=== PATIENT | female | born 1950 | race Caucasian/White ===

== ENCOUNTER 2017-02-26 08:13 | Inpatient (IN) ==
[2017-02-26] MEDS ORDERED: IOPAMIDOL 100 ML BOTTLE IV ONE (08:14)
--- NOTE | 2017-02-26 09:06 | Emergency Department Note ---
Abdominal Pain HPI - General Chief Complaint: Abdominal Pain Stated Complaint: Possible stool coming from vagina Time Seen by Provider: 02/26/17 09:03 Source: patient Mode of arrival: ambulatory Limitations: no limitations - History of Present Illness HPI Narrative: This patient feels that she has been passing some stool and gas from her vagina for quite a long time. Also feels like she has some hemorrhoids. - Related Data Home Medications Medication Instructions Recorded Confirmed Ranitidine HCl [Zantac 75] 75 mg PO DAILYP PRN 03/01/16 02/26/17 Acetaminophen [Acetaminophen Extra 500 mg PO Q6H PRN 03/03/16 02/26/17 Strength] Previous Rx's Medication Instructions Recorded Sulfamethoxazole/Trimethoprim 1 tab PO BID #14 tablet 02/24/17 [Bactrim Ds] Allergies Allergy/AdvReac Type Severity Reaction Status Date / Time ondansetron AdvReac Mild Swelling Verified 02/24/17 19:52 [From Zofran (as hydrochloride)] Abdominal Pain PMH - Past Medical History COUNTS INCLUDE 234 BEDS AT THE [facility] Narrative: Medical History (Last Updated 02/24/17 @ 20:37 by Carolyne Gomez CALCULATION REVIEWER) Vasovagal syncope (Chronic 10/05/10) Uterine prolapse (Resolved) Underweight (Chronic 12/04/11) Scoliosis (and kyphoscoliosis), idiopathic (Chronic) Migraine (Chronic) Hernia, hiatal (Chronic 09/18/11) Edema (Chronic 09/20/11) Ear pain (Chronic 10/22/10) Cerumen impaction (Resolved) Cachexia (Chronic 12/04/11) Basal cell carcinoma (Chronic) Ascites (Chronic 09/19/11) Abdominal pain (Chronic) Impacted cerumen of both ears (Resolved) Injury of Foot (Resolved) Left sided sciatica (Chronic) Lumbar spine strain (Chronic) Muscle spasm (Chronic) Low back pain (Chronic) Sciatica (Chronic) Cachexia (Chronic) Scoliosis (Chronic) Back pain of lumbosacaral region with sciatica (Chronic) Past Surgical History (Last Updated 03/11/16 @ 16:21 by Jignesh Crowell MD) H/O hysterectomy with oophorectomy (Resolved) History of cystoscopy (Resolved) Family History Father Alzheimer's disease Grandmother Colon malignancy Grandfather Heart disease Leukemia Mother Hypertension, essential Medical history: Reports: osteoporosis, other (scoliosis severe deforming, cachexia) - Social History Alcohol use: Reports: None Drug use: Reports: none Physical Exam - General Limitations: no limitations Course Vital Signs Temperature 97.7 F 02/26/17 08:13 Pulse Rate 73 02/26/17 08:13 Respiratory Rate 16 02/26/17 08:13 Blood Pressure 130/78 02/26/17 08:13 Pulse Oximetry (%) 100 02/26/17 08:13 Temperature 97.7 F 02/26/17 08:13 Pulse Rate 64 02/26/17 15:01 Respiratory Rate 16 02/26/17 08:13 Blood Pressure 131/85 02/26/17 15:01 Pulse Oximetry (%) 100 02/26/17 15:01 Abdominal Pain - MDM Narrative Medical decision making narrative: CT scan shows a large colon cancer eroding into the vagina. She will be admitted to the hospital by Dr. Ruth the surgeon. - Lab Data Lab results reviewed: Yes I reviewed the patient's lab results. Result diagrams: 02/26/17 08:59 02/26/17 08:59 Lab Results 02/26/17 02/26/17 Range/Units 08:59 08:59 WBC 4.1 L (4.5-11.0) K/mcL RBC 3.96 L (4.00-5.20) M/mcL Hgb 8.4 L (12.0-15.0) g/dL Hct 27.9 L (36.0-48.0) % MCV 70.4 L (80.0-100.0) fL MCH 21.1 L (26.0-34.0) pg MCHC 30.0 L (31.0-36.0) g/dL RDW 17.6 H (11.5-14.5) % Plt Count 360 (140-440) K/mcL MPV 7.1 L (7.4-10.4) fL Total Counted 100 Seg Neutrophils % 72 (38-78) % Band Neutrophils % 2 (0-10) % Lymphocytes % 11 L (15-49) % Monocytes % (Manual) 15 H (1-12) % Platelet Estimate Normal (NORMAL) RBC Morphology Abnorm A (NORMAL) Hypochromasia 1+ A (NONE SEEN) Anisocytosis 1+ A (NONE SEEN) Microcytosis 2+ A (NONE SEEN) Ovalocytes Few A (NONE SEEN) Acanthocytes (Spur) Few A (NONE SEEN) Sodium 139 (133-145) mmol/L Potassium 4.2 (3.3-5.1) mmol/L Chloride 103 (96-108) mmol/L Carbon Dioxide 22 (22-30) mmol/L Anion Gap 14.0 (8-16) BUN 37 H (8-23) mg/dl Creatinine 0.8 (0.6-1.1) mg/dl GFR Calculation 76 Glucose 95 (70-105) mg/dL Calcium 9.0 (8.6-10.4) mg/dl Total Bilirubin 0.2 (0.0-1.0) mg/dL AST 25 (0-37) U/l ALT 21 (0-40) U/l Alkaline Phosphatase 109 (39-117) U/L Total Protein 6.7 (5.9-8.4) gm/dL Albumin 3.9 (3.2-5.2) gm/dL Globulin 2.8 (2.2-3.7) gm/dL Albumin/Globulin Ratio 1.4 (1.0-2.3) - Radiology Data Radiology results reviewed: Yes I reviewed the patient's radiology results. Disposition Clinical Impression: Colon cancer Disposition: Xfer As Inpt ([facility]) Condition: Fair Referrals: Jignesh Crowell MD [Primary Care Provider] - Time of Disposition: 15:15
[2017-02-26 09:31] LABS: Mean Cell Volume 70.4 fL (80.0-100.0); Mean Corpuscular Hemoglobin 21.1 pg (26.0-34.0); Platelet Count 360 K/mcL (140-440); RBC 3.96 M/mcL (4.00-5.20); Red Cell Distribution Width 17.6 % (11.5-14.5)
[2017-02-26 10:08] LABS: Acanthocytes FEW (NONE SEEN); Anisocytosis 1+ (NONE SEEN); Band Neutrophils % 2 % (0-10); Hypochromasia 1+ (NONE SEEN); Lymphocytes % 11 % (15-49); Monocytes % (Manual) 15 % (1-12); Ovalocytes FEW (NONE SEEN); Platelet Estimate NORMAL (NORMAL); RBC Morphology ABNORM (NORMAL); Segmented Neutrophils % 72 % (38-78)
[2017-02-26 10:09] LABS: ALT/SGPT 21 U/l (0-40); Albumin 3.9 gm/dL (3.2-5.2); Albumin/Globulin Ratio 1.4 (1.0-2.3); Alkaline Phosphatase 109 U/L (39-117); Blood Urea Nitrogen 37 mg/dl (8-23)
--- NOTE | 2017-02-26 15:37 | Internal Med History&Physical ---
Medical - H&P: HPI Patient information: Note initiated : 02/26/17 at 3:31 pm Patient: Milady Rdz 67 y/o F admitted on for Possible stool coming from vagina. History of present illness: Ms. Rdz is a 67 year old with a long-standing history of severe weight loss and kyphoscoliosis. She reports that she developed worsening scoliosis in her 50s with recurrent compression fractures, and thinks that she started losing weight around that time. She believes her weight has been in the 80 pound range since at least 2001. She does have a family history of colon cancer, but never agreed to screening colonoscopy, because she recalls her mother saying it was painful. Patient reports that she had a bad case of sciatica last year, and became very sedentary at that time and then developed constipation followed by rectal bleeding at that time it was thought she had bleeding hemorrhoids. That then settled down. Then about 4 weeks ago, she started to have vaginal bleeding. She thought initially it was just hemorrhoids acting up. However, she is also noticed passing gas and stool from the vaginal area. She is having occasional sweats. She thought perhaps she had a urinary tract infection, so presented to our emergency room a few days ago. She was diagnosed with UTI and given an antibiotic. She returned today, because she continues to see blood and probable stool from the vaginal area. She also notes that her perineal area seems to be getting macerated. Otherwise, she denies recent fever, but has had some occasional sweats, particularly at night. She denies headaches or dizziness, new eye or ear symptoms, sore throat or cough. She denies chest pain or palpitations. She does have mild dyspnea with exertion, for the last year or so. She denies abdominal pain, nausea or vomiting. She says her stools been fairly loose lately, and she does have some urgency to stool. She denies significant dysuria. She says she may have lost a little bit of weight over the last few years, but believes she was at 88 pounds about 15 years ago. ER evaluation included a CT scan, which confirmed a mass in the rectovaginal area, which is eroding through. Dr. Ruth evaluated the patient in the emergency room, and requested admission to work on her nutritional status and correct her severe anemia, prior to considering diverting colostomy. Medical History ? UTI diagnosed several days ago. Abdominal pain (Chronic) Ascites (Chronic 09/19/11) with paracentesis done at [facility] Back pain of lumbosacaral region with sciatica (Chronic) Basal cell carcinoma (Chronic) fascial Cachexia (Chronic 12/04/11) Edema (Chronic 09/20/11) in feet and hands Hernia, hiatal (Chronic 09/18/11) See pelvic/abdomen CT at 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 Underweight (Chronic 12/04/11) Vasovagal syncope (Chronic 10/05/10) and collapse PT became a little faint and nauseous, Dr used ammonia capsule and that seemed to bring her around. Impacted cerumen of both ears (Resolved) Injury of Foot (Resolved) Uterine prolapse (Resolved) Surgical History H/O hysterectomy with oophorectomy (Resolved) 2001 Dr Jarrett JEREMY/BSO for prolapse History of cystoscopy (Resolved) 2001 for total uterine and pelvic prolapse w/stress incontinence. Also had Moschowitz culdoplasty, bach urethropexy, vaginal vault suspension, and cystoscopy. Pathology showed atrophic endometrium, chronic cervicitis, hyperkeratosis. Medications: Tylenol 500 mg every 6 hours as needed Lincoln 53 25 1-2 tabs every 4 hours as needed Methocarbamol 500 mg p.o. 3 times daily as needed Ranitidine 75 mg p.o. daily Allergies: Zofran:?. Causes swelling. She was admitted once for IV fluids, and thought perhaps the resulting swelling was from the Zofran, but it was likely from the IV fluids. Family History Father Alzheimer's disease Grandmother Colon malignancy Grandfather Heart disease Leukemia Mother Hypertension, essential Social History The patient is single, and lives alone. She does not have children. She says her closest relative is her brother who lives in [place]. She generally tries to walk at least 40 minutes a day, and generally does not need assistive devices. She does not use tobacco, alcohol, drugs. Medical - H&P: Meds Home Medications Medication Instructions Recorded Confirmed Type Ranitidine HCl [Zantac 75] 75 mg PO DAILYP PRN 03/01/16 02/26/17 History Acetaminophen [Acetaminophen Extra 500 mg PO Q6H PRN 03/03/16 02/26/17 History Strength] Sulfamethoxazole/Trimethoprim 1 tab PO BID #14 tablet 02/24/17 02/26/17 Rx [Bactrim Ds] Allergies Allergy/AdvReac Type Severity Reaction Status Date / Time No Known Drug Allergies Allergy Verified 02/26/17 19:47 Medical - H&P: Exam - Constitutional Vitals: Temp Pulse Resp BP Pulse Ox 97.7 F 64 16 131/85 100 02/26/17 08:13 02/26/17 15:01 02/26/17 08:13 02/26/17 15:01 02/26/17 15:01 On exam, she is a cachectic appearing elderly female in no acute distress. She is severely kyphotic. Head: Normocephalic, atraumatic. She appears to have temporal wasting. Ears: She has bilateral cerumen impactions. Eyes: PERRLA, EOMI, anicteric. Pharynx: Teeth are in good repair. Mucosa appears normal. Neck: Neck appears fairly supple. Neck veins are full, but filled from above and not from below. There is no obvious lymphadenopathy, thyromegaly, bruits. Cardiac exam: Shows regular rate and rhythm, without murmurs, rubs, gallops. She has severe muscle wasting, and ribs are very prominent. Lungs: Clear to auscultation, without rales, rhonchi, wheezes. Abdomen: Is soft and nontender. Bowel sounds are active. Rectovaginal exam was performed in the ER. Extremities: Show significant muscle wasting. She does have about 1+ pitting edema at the ankles and feet. No cyanosis or clubbing is noted. Neurologic exam: Is grossly nonfocal. Skin exam: Brief exam does not show any rashes or other worrisome skin lesions. Medical - H&P: Reslt - Labs CBC & Chem 7: 02/26/17 08:59 02/26/17 08:59 Labs: Short CBC 02/26/17 Range/Units 08:59 WBC 4.1 L (4.5-11.0) K/mcL Hgb 8.4 L (12.0-15.0) g/dL Hct 27.9 L (36.0-48.0) % Plt Count 360 (140-440) K/mcL BMP 02/26/17 08:59 Sodium 139 Potassium 4.2 Chloride 103 Carbon Dioxide 22 BUN 37 H Creatinine 0.8 Glucose 95 Calcium 9.0 Liver Function 02/26/17 Range/Units 08:59 Total Bilirubin 0.2 (0.0-1.0) mg/dL AST 25 (0-37) U/l ALT 21 (0-40) U/l Alkaline Phosphatase 109 (39-117) U/L Albumin 3.9 (3.2-5.2) gm/dL February 26: CT of abdomen and pelvis: Findings suspicious for rectovaginal fistula. No intra-abdominal abscess. Multiple hepatic hemangiomas. Cachexia. No other significant abnormalities. Chest x-ray shows severe left convex thoracolumbar scoliosis. No acute infiltrates. CBC differential shows abnormal RBC morphology, with hypochromasia, anisocytosis , microcytosis, ovalocytes, and acanthocytes. February 24: Urine culture grew 20-30,000 mixed skin kellie. Urine screen for chlamydia and Neisseria was negative. March 11, 2016: Hemoglobin was 11, with hematocrit 35.5. RDW elevated at 16.9. March 2016: Echocardiogram: Bileaflet mitral prolapse with mitral regurgitation moderately severe, mild left atrial enlargement. Mild pulmonary hypertension. Atrial septal aneurysm, normal variant. Medical - H&P: A/P (1) Recto-vaginal fistula Current visit: Yes Status: Acute (2) Severe anemia Current visit: Yes Status: Acute (3) Kyphoscoliosis and scoliosis Current visit: Yes Status: Chronic (4) Cachexia Current visit: No Status: Chronic - Narrative A/P Narrative: #1. GI/. Patient presents with bleeding and stool per vagina. CT findings are consistent with possible mass eroding through the bowel and vaginal lewis, creating a fistula. -The patient appears to be severely malnourished, but will need a diverting colostomy. She has been admitted to work on correcting anemia, and consider TPN to be felt per nutrition, prior to surgery. -Dr. Ruth is consulting. -IV Zosyn, to cover possible urinary tract infection, regarding fecal contamination. 2. Malnutrition. Patient is severely cachectic, and apparently has been for quite a few years. Nutrition consult. -PICC line will be placed, and TPN planned. 3. Severe anemia, microcytic. This is very worrisome for colon cancer, in the setting of her family history and her presentation. -Transfuse to hemoglobin above 10, prior to surgery. 4. CODE STATUS: The patient requests a no CODE STATUS. She does not appear to have a formal POA and writing, but says her brother in [place] is her closest relative, and should act as her POA. 5. DVT prophylaxis: I will use subcu heparin and SCDs for now. Heparin will be discontinued prior to surgery. 6. History of chronic and severe scoliosis and compression fractures. Pain meds as needed. 7. Patient has history of mitral valve prolapse. She will be on perioperative antibiotics, regarding infection risk. This visit took approximately 60 minutes, to review the patient's records, review her case with the ER MD, as well as with Dr. Ruth of surgery, interview and examine her, and write orders.
--- NOTE | 2017-02-26 16:02 | General Surgery Consult Note ---
History of Present Illness Patient information: Note initiated : 02/26/17 at 3:59 pm Service Date, if different from initiated Date: [] Patient: Milady Rdz 67 y/o F admitted on for Possible stool coming from vagina. Chief Complaint: [] Reason for consult: other (stool and gas per vagina;fecal incontinence) History of present illness: 67-year-old female who presents to the emergency room with complaint of vaginal and rectal bleeding with stool per vagina. She was seen in the emergency room on 24 February with similar complaints and was treated for urinary tract infection. She noted that she was not better and that she was more incontinent of urine and stool and it all seem to be coming from her vagina. She was having more pain and becoming more bloated. When seen in the emergency room she was noted to have a significant amount of vaginal perianal drainage with a hard mass protruding through her rectum. Digital examination revealed a large mass on the posterior wall of the vagina and infiltrating from the rectum with suspected connection on bimanual exam. She has a suspected malignant neoplasm with a rectovaginal fistula and will need to be admitted. She has extreme cachexia with last noted weight of 82 pounds. This is compounded by extreme kyphoscoliosis. Her hemoglobin in February was 11.3 and on the day of admission is 8.4. This is a dehydrated hemoglobin since her BUN is 37. The patient will be admitted and transfused. She will need to have central line for TPN and she is counseled for the possibility of diverting colostomy which will be permanent. She is also informed that she will need to have chemoradiation for her pelvic vaginal neoplasm after pathology results unknown. The patient has a family history of colon cancer but has never had a colonoscopy. Review of Systems - Constitutional anorexia, fatigue, lethargy, malaise, weakness, weight loss - EENT Nose, mouth and throat: no abnormal hearing, no dizziness, no dysphagia, no epistaxis, no headache(s) - Cardiovascular dyspnea on exertion, edema, palpatations, syncope, no chest pain with activity - Respiratory dyspnea on exertion, pain on inspirtation - Gastrointestinal abdominal pain, bloating, change in stool character, constipation, fecal incontinence, hematochezia, loose stools, nausea - Genitourinary Genitourinary: dysuria, hematuria, urinary incontinence, vaginal discharge, other (Vaginal bleeding) - Musculoskeletal abnormal gait, arthralgias, back pain, deformity, joint swelling, loss of height , muscle cramps, muscle weakness, myalgias, numbness, radiating pain into limb, stiffness, tingling - Integumentary no changing lesions, no new lesions, no pruritus, no rash - Neurological abnormal gait, burning sensations, numbness, sensory deficit, tingling - Psychiatric anxiety, depression - Endocrine fatigue, palpitations, no cold intolerance - Hematologic/Lymphatic no easy bleeding, no easy bruising, no lymphadenopathy - Allergic/Immunologic tongue swelling, throat swelling, uticaria, wheezing, lip swelling Past History Past medical history: Chronic anemia Chronic cachexia Severe lumbar disc disease with radiculopathy Severe kyphoscoliosis Past surgical history: Abdominal hysterectomy with bilateral salpingo-oophorectomy and pelvic repair 2001 Past family history: Alzheimer's disease Colon cancer Coronary artery disease Leukemia Hypertension Past social history: Single Lives alone Never smoker Never drinker Never drugs Medications and Allergies Home Medications Medication Instructions Recorded Confirmed Type Ranitidine HCl [Zantac 75] 75 mg PO DAILYP PRN 03/01/16 02/26/17 History Acetaminophen [Acetaminophen Extra 500 mg PO Q6H PRN 03/03/16 02/26/17 History Strength] Sulfamethoxazole/Trimethoprim 1 tab PO BID #14 tablet 02/24/17 02/26/17 Rx [Bactrim Ds] Allergies Allergy/AdvReac Type Severity Reaction Status Date / Time No Known Drug Allergies Allergy Verified 02/26/17 19:47 Exam Temp Pulse Resp BP Pulse Ox 97.7 F 64 16 129/80 100 02/26/17 08:13 02/26/17 15:46 02/26/17 08:13 02/26/17 15:46 02/26/17 15:46 - General physical appearance moderate distress, moderate pain, cachectic, chronically ill - Eyes PERRL, normal ocular movement - ENT normal pinna, normal nares, normal mucosa, no hearing loss, no congestion - Head Head exam IM: Present: atraumatic, normocephalic - Neck no masses, no bruits, trachea midline, no lymphadectomy, no venous distension - Cardiovascular Cardiovascular exam IM: Present: normal rate and rhythm, RRR, +S1, +S2, systolic murmur. Absent: JVD Intensity IM: 2/6 - Respiratory normal expansion, normal respiratory effort, clear to percussion, clear to auscultation, other (Severe deformity of thoracic cavity due to marked kyphoscoliosis) - Abdomen Abdomen: Present: soft, non tender, bowel sounds, distended (Markedly distended due to crowding of viscera from kyphoscoliosis no palpable mass) Hernia: Present: none - Genitourinary Present: normal external genitalia, other (Very tender hard indurated vaginal vault with multiple nodules more prominent anteriorly with communication with rectal vault through multiple areas by palpation. Mass in the vagina is contiguous with the mass in the rectum) - Rectum Rectum: Present: no tenderness, no masses, mass (Massive rectum extending into the vagina with active bleeding and marked tenderness with communication with vaginal vault) - Integumentary Present: no rash, no growths, no abnormal pigmentation - Musculoskeletal Present: other (Incidence ofIs gait and stance not tested) - Psychiatric Present: oriented to time, oriented to person, oriented to place, speech is normal, memory intact Results - Labs 02/27/17 03:47 02/27/17 03:47 Abnormal lab results 02/26/17 02/26/17 Range/Units 08:59 08:59 WBC 4.1 L (4.5-11.0) K/mcL RBC 3.96 L (4.00-5.20) M/mcL Hgb 8.4 L (12.0-15.0) g/dL Hct 27.9 L (36.0-48.0) % MCV 70.4 L (80.0-100.0) fL MCH 21.1 L (26.0-34.0) pg MCHC 30.0 L (31.0-36.0) g/dL RDW 17.6 H (11.5-14.5) % MPV 7.1 L (7.4-10.4) fL Lymphocytes % 11 L (15-49) % Monocytes % (Manual) 15 H (1-12) % RBC Morphology Abnorm A (NORMAL) Hypochromasia 1+ A (NONE SEEN) Anisocytosis 1+ A (NONE SEEN) Microcytosis 2+ A (NONE SEEN) Ovalocytes Few A (NONE SEEN) Acanthocytes (Spur) Few A (NONE SEEN) BUN 37 H (8-23) mg/dl Diabetes panel 02/26/17 Range/Units 08:59 Sodium 139 (133-145) mmol/L Potassium 4.2 (3.3-5.1) mmol/L Chloride 103 (96-108) mmol/L Carbon Dioxide 22 (22-30) mmol/L BUN 37 H (8-23) mg/dl Creatinine 0.8 (0.6-1.1) mg/dl Glucose 95 (70-105) mg/dL Calcium 9.0 (8.6-10.4) mg/dl AST 25 (0-37) U/l ALT 21 (0-40) U/l Alkaline Phosphatase 109 (39-117) U/L Total Protein 6.7 (5.9-8.4) gm/dL Albumin 3.9 (3.2-5.2) gm/dL Calcium panel 02/26/17 Range/Units 08:59 Calcium 9.0 (8.6-10.4) mg/dl Albumin 3.9 (3.2-5.2) gm/dL Pituitary panel 02/26/17 Range/Units 08:59 Sodium 139 (133-145) mmol/L Potassium 4.2 (3.3-5.1) mmol/L Chloride 103 (96-108) mmol/L Carbon Dioxide 22 (22-30) mmol/L BUN 37 H (8-23) mg/dl Creatinine 0.8 (0.6-1.1) mg/dl Glucose 95 (70-105) mg/dL Calcium 9.0 (8.6-10.4) mg/dl Adrenal panel 02/26/17 Range/Units 08:59 Sodium 139 (133-145) mmol/L Potassium 4.2 (3.3-5.1) mmol/L Chloride 103 (96-108) mmol/L Carbon Dioxide 22 (22-30) mmol/L BUN 37 H (8-23) mg/dl Creatinine 0.8 (0.6-1.1) mg/dl Glucose 95 (70-105) mg/dL Calcium 9.0 (8.6-10.4) mg/dl Total Bilirubin 0.2 (0.0-1.0) mg/dL AST 25 (0-37) U/l ALT 21 (0-40) U/l Alkaline Phosphatase 109 (39-117) U/L Total Protein 6.7 (5.9-8.4) gm/dL Albumin 3.9 (3.2-5.2) gm/dL All other labs normal. Assessment and Plan (1) Rectal malignant neoplasm After stabilization patient will need diverting colostomy Status: Acute (2) Recto-vaginal fistula After stabilization patient will need diverting colostomy Status: Acute (3) Urinary tract infection Continue antibiotic therapy and get fresh cath specimen Status: Acute (4) Severe anemia Transfuse to hemoglobin above 10 Status: Acute (5) Kyphoscoliosis and scoliosis Status: Chronic (6) Lumbar disc disease with radiculopathy Continue analgesics for comfort Status: Acute
[2017-02-26] MEDS ORDERED: PROMETHAZINE 25 MG/ML VIAL IV PRN (17:12)
[2017-02-26] MEDS ORDERED: POTASSIUM CHLORIDE 20 MEQ in DEXTROSE 5%-1/2NS 1,000 ML IV SCH (17:12)
[2017-02-26] MEDS ORDERED: ALBUTEROL SULFATE 2.5 MG/3 ML NEBULIZER NEB PRN (17:12)
[2017-02-26] MEDS ORDERED: MAGNESIUM HYDROXIDE 30 ML ORAL.SUSP PO PRN (17:12)
[2017-02-26] MEDS ORDERED: 0.9 % SODIUM CHLORIDE 250 ML IV SCH ×2 (17:12)
[2017-02-26] MEDS ORDERED: NALOXONE HCL 0.4 MG/ML VIAL IV PRN (17:12)
[2017-02-26] MEDS ORDERED: DOCUSATE SODIUM 100 MG CAPSULE PO PRN (17:12)
[2017-02-26] MEDS ORDERED: ACETAMINOPHEN 325 MG TABLET PO PRN (17:12)
[2017-02-26] MEDS ORDERED: HYDROcodone/APAP 5/325MG TABLET PO PRN (17:12)
--- NOTE | 2017-02-26 18:12 | XRay Report ---
CLINICAL INFORMATION: Severe malnutrition TECHNIQUE: AP portable semierect chest x-ray COMPARISON: Previous examination dated 03/11/2016 FINDINGS: Severe deformity with marked left thoracolumbar scoliosis. No focal pulmonary parenchymal infiltrate or mass. No evidence for congestive heart failure. No interval change. IMPRESSION: 1. Severe left convex thoracolumbar scoliosis 2. No acute infiltrate. No evidence for congestive heart failure Interpreted and Authenticated by: Augustus Jarquin 02/26/17
[2017-02-26] MEDS: PIPERACILLIN SODIUM/TAZOBACTAM 3.375 GM in DEXTROSE 5% IN WATER 50 ML IV SCH (19:56)
--- NOTE | 2017-02-26 20:25 | Cat Scan Report ---
CLINICAL INFORMATION: Vaginal feces. CACHEXIA. COMPARISON: Previous examination dated 09/19/2011 TECHNIQUE: Axial images were obtained through the abdomen and pelvis. Sagittally and coronally reformatted images. 60 mL nonionic contrast material injected intravenously. Oral contrast material was given. Scan was initially performed three hours after oral contrast ingestion. Repeat images to the pelvis were obtained two hours after the initial examination FINDINGS: Patient has a history of vaginal feces consistent with colovesical fistula. There is generalized lack of intraperitoneal, retroperitoneal, and subcutaneous fat. Contrast is compromised. In the pelvis there is somewhat amorphous soft tissue density with difficult the limitation of colon and vagina. The uterus is not identified. There are irregular gas bubbles within the vagina. There is a probable small rectovaginal fistula although this is not optimally demonstrated. If a surgical procedure is planned, repeat examination with water-soluble contrast material administered by rectum may be of benefit. There is severe abdominal deformity secondary to high-grade left thoracolumbar scoliosis. Lung bases are negative. No parenchymal infiltrate or mass. No pleural fluid. No pericardial fluid. Liver is abnormal. There are multiple low density lesions consistent with hemangiomas. These are unchanged since 2012. Liver contour is smooth without evidence for cirrhosis. Gallbladder is present. No calcified gallstones. No dilated bile ducts. Spleen is negative. Normal enhancement of splenic and portal veins. Pancreas is negative. No pancreatic mass. Negative adrenal glands. Kidneys are negative. No hydronephrosis. There is a right upper pole renal cyst. There is no bowel obstruction. Previous examination demonstrated ascites as well as abnormal appearance of the small bowel. These findings have resolved. No retroperitoneal lymphadenopathy. No pneumoperitoneum. No intra-abdominal abscess. No biliary or portal venous gas. IMPRESSION: 1. Findings suspicious for rectovaginal fistula although this is not optimally demonstrated 2. No intra-abdominal abscess. No pneumoperitoneum. 3. Severe scoliosis. 4. Multiple hepatic hemangiomas, unchanged 5. Cachexia Interpreted and Authenticated by: Augustus Jarquin 02/26/17
[2017-02-26] MEDS: DEXTROSE 5%-1/2NS W/20MEQ KCL 1,000 ML IV SCH (21:41)
[2017-02-26] MEDS: HEPARIN 5,000 UNIT/ML VIAL SQ SCH (23:01)
[2017-02-26] MEDS: FAMOTIDINE/PF 20 MG/2 ML VIAL IV SCH (23:01)
[2017-02-27] MEDS: PIPERACILLIN SODIUM/TAZOBACTAM 3.375 GM in DEXTROSE 5% IN WATER 50 ML IV SCH ×4 (01:11→17:48)
[2017-02-27 06:55] LABS: ALT/SGPT 15 U/l (0-40); Albumin/Globulin Ratio 1.1 (1.0-2.3); Alkaline Phosphatase 86 U/L (39-117); Bilirubin,Direct < 0.2 mg/dL (0.0-0.3); Blood Urea Nitrogen 24 mg/dl (8-23); Gamma Glutamyl Transpeptidase 47 U/L (5-36); Magnesium 2.4 mg/dL (1.6-2.5); Uric Acid 3.1 mg/dL (2.5-8.0)
[2017-02-27 08:16] LABS: Basophils # (Auto) 0 K/mcL (0.0-0.3); Basophils % (Auto) 0 % (0.0-2.0); Eosinophils # (Auto) 0.1 K/mcL (0.0-0.7); Eosinophils % (Auto) 3.1 % (0.0-7.0); Granulocytes % (Auto) 63.4 % (38.0-78.0); Lymphocytes # (Auto) 0.8 K/mcL (1.5-4.8); Lymphocytes % (Auto) 19.7 % (15.5-49.0); Mean Cell Volume 75.6 fL (80.0-100.0); Mean Corpuscular HGB Conc 31.9 g/dL (31.0-36.0); Mean Corpuscular Hemoglobin 24.1 pg (26.0-34.0); Monocytes # (Auto) 0.6 K/mcL (0.1-0.9); Monocytes % (Auto) 13.8 % (1.0-12.0); Platelet Count 347 K/mcL (140-440); RBC 4.62 M/mcL (4.00-5.20); Red Cell Distribution Width 20.9 % (11.5-14.5)
[2017-02-27] MEDS ORDERED: 0.9 % SODIUM CHLORIDE 10 ML SYRINGE IV PRN ×4 (09:00→16:19)
[2017-02-27] MEDS: FAMOTIDINE/PF 20 MG/2 ML VIAL IV SCH ×2 (09:43→22:55)
[2017-02-27] MEDS: HEPARIN 5,000 UNIT/ML VIAL SQ SCH ×2 (09:43→22:55)
[2017-02-27] MEDS: DEXTROSE 5%-1/2NS W/20MEQ KCL 1,000 ML IV SCH ×2 (09:44→22:55)
--- NOTE | 2017-02-27 11:15 | General Surgery Progress Note ---
Subjective Patient reports: feels better, pain is less, tolerating liquids well, voiding w/ o difficulty, blood in stool, afebrile Narrative: Note initiated : 02/27/17 at 11:13 am Service Date, if different from initiated Date: [] Patient: Milady Rdz 67 y/o F admitted on 02/26/17 for Possible stool coming from vagina. Chief Complaint: [Patient is doing well. She was transfused 2 units of packed red cells and her hemoglobin is 11.2. Briones catheter was inserted earlier today because of polyuria. I had a long discussion with her again concerning her diagnosis and the plan of treatment. We will need to get central vein access and start TPN before instituting a surgical therapy. This means that surgery will probably be Friday or Friday of next week. After hydration her albumin is down to 3. It will probably be close to 2 by the time she is fully hydrated. I discussed the placement of her colostomy and colostomy care with her and demonstrated the pouches and the wafers. She is advised that she will get teaching in the hospital and through home health after discharge. She may have to go to [facility] while she recuperates from surgery prior to starting her radiation treatment. Since the surgery will be delayed at least 3 days I will stretch her bowel prep over 3 days since most of the effluent will come through her vagina. She still has a modest amount of vaginal bleeding today.] Objective Temp Pulse Resp BP Pulse Ox 98.2 F 56 L 18 117/75 97 02/27/17 07:30 02/27/17 07:30 02/27/17 07:30 02/27/17 07:30 02/27/17 07:30 - Additional Data Intake & Output - Last 24 hours: Intake & Output 02/25/17 02/26/17 02/27/17 02/28/17 05:59 05:59 05:59 05:59 Intake Total 744 / 744 1163 / 1163 Output Total 1150 / 1150 150 / 150 Balance -406 / -406 1013 / 1013 Weight 76 lb 6.4 oz - General physical appearance moderate pain, cachectic, chronically ill - Eyes PERRL - ENT normal nares, no congestion - Neck no masses, trachea midline, no venous distension - Respiratory normal expansion, normal respiratory effort, clear to percussion, clear to auscultation - Cardiovascular Cardiovascular exam: Present: normal rate and rhythm, RRR, +S1, +S2, systolic murmur. Absent: JVD - Abdomen soft, non tender, bowel sounds, distended (Abdomen remains mildly distended with good active bowel sounds. No tenderness is noted today. No masses are noted) - Psychiatric oriented to time, oriented to person, oriented to place, speech is normal, memory intact - Labs 02/27/17 03:47 02/27/17 03:47 Diabetes panel 02/27/17 Range/Units 03:47 Sodium 141 (133-145) mmol/L Potassium 4.5 (3.3-5.1) mmol/L Chloride 103 (96-108) mmol/L Carbon Dioxide 25 (22-30) mmol/L BUN 24 H (8-23) mg/dl Creatinine 0.8 (0.6-1.1) mg/dl Glucose 97 (70-105) mg/dL Calcium 8.3 L (8.6-10.4) mg/dl AST 21 (0-37) U/l ALT 15 (0-40) U/l Alkaline Phosphatase 86 (39-117) U/L Total Protein 5.7 L (5.9-8.4) gm/dL Albumin 3.0 L (3.2-5.2) gm/dL Triglycerides 65 (<150) mg/dl Calcium panel 02/27/17 Range/Units 03:47 Calcium 8.3 L (8.6-10.4) mg/dl Phosphorus 4.1 (2.7-4.5) mg/dL Albumin 3.0 L (3.2-5.2) gm/dL Pituitary panel 02/27/17 Range/Units 03:47 Sodium 141 (133-145) mmol/L Potassium 4.5 (3.3-5.1) mmol/L Chloride 103 (96-108) mmol/L Carbon Dioxide 25 (22-30) mmol/L BUN 24 H (8-23) mg/dl Creatinine 0.8 (0.6-1.1) mg/dl Glucose 97 (70-105) mg/dL Calcium 8.3 L (8.6-10.4) mg/dl Adrenal panel 02/27/17 Range/Units 03:47 Sodium 141 (133-145) mmol/L Potassium 4.5 (3.3-5.1) mmol/L Chloride 103 (96-108) mmol/L Carbon Dioxide 25 (22-30) mmol/L BUN 24 H (8-23) mg/dl Creatinine 0.8 (0.6-1.1) mg/dl Glucose 97 (70-105) mg/dL Calcium 8.3 L (8.6-10.4) mg/dl Total Bilirubin 0.8 (0.0-1.0) mg/dL AST 21 (0-37) U/l ALT 15 (0-40) U/l Alkaline Phosphatase 86 (39-117) U/L Total Protein 5.7 L (5.9-8.4) gm/dL Albumin 3.0 L (3.2-5.2) gm/dL Assessment and Plan (1) Rectal malignant neoplasm Status: Acute Assessment and plan: Discussed need for diverting colostomy and inform patient that the colostomy will be permanent. the earliest time that this can be done will be Friday but the actual time will be based on her metabolic picture. Current Visit: Yes (2) Recto-vaginal fistula Status: Acute Current Visit: Yes (3) Urinary tract infection Status: Acute Assessment and plan: Under treatment with antibiotics Culture results pending Current Visit: No (4) Severe anemia Status: Acute Assessment and plan: Partially corrected after transfusion of 2 units packed red cells; present hemoglobin 11.2 ;will place central venous catheter today Current Visit: Yes (5) Kyphoscoliosis and scoliosis Status: Chronic Current Visit: Yes (6) Lumbar disc disease with radiculopathy Status: Acute Current Visit: Yes - Time Spent With Patient Total time spent is greater than 50% in coordination of care (as documented) at patient's floor/unit and/or counseling patient:
--- NOTE | 2017-02-27 13:11 | XRay Report ---
ORIGINAL REPORT CLINICAL INFORMATION: Anemia. Dyspnea. TECHNIQUE: AP chest x-ray COMPARISON: Previous examinations dated 02/26/2017 and 03/11/2016 FINDINGS: Severe left convex thoracolumbar scoliosis is unchanged. No focal pulmonary parenchymal infiltrate or mass. No pulmonary edema. No acute abnormality or interval change. IMPRESSION: No acute infiltrate. No interval change since 02/26/2017 ADDENDUM #1 Addendum: I was not given a history of PICC line placement. There is a radiopaque line consistent with left-sided PICC line. The tip is curled and is in position consistent with the inferior right atrium. I do not certain whether there is a guidewire present but this is suspected. Interpreted and Authenticated by: Augustus Jarquin 02/27/17
[2017-02-27] MEDS ORDERED: 0.9 % SODIUM CHLORIDE 10 ML SYRINGE IV SCH (14:00)
[2017-02-27] MEDS ORDERED: TPN PER PHARMACY IV SCH (16:13)
--- NOTE | 2017-02-27 16:17 | General Surgery Procedure Note ---
Date of procedure: Note initiated : 02/27/17 at 4:15 pm Service Date, if different from initiated Date: [] Pre-op diagnosis: inadequate venous access;malnutrition Post-op diagnosis: same Procedure: left subclavian central venous catheter placement Findings: N/A Grafts/Implants: N/A Anesthesia: local (1% LOCAL INFILTRATION) Surgeon: Brian Ruth Estimated blood loss: 0 Pathology: none sent Condition: stable Disposition: no change
[2017-02-27] MEDS ORDERED: NALOXONE HCL 0.4 MG/ML VIAL IV PRN (16:19)
[2017-02-27] MEDS ORDERED: MAGNESIUM HYDROXIDE 30 ML ORAL.SUSP PO PRN (16:19)
[2017-02-27] MEDS ORDERED: PROMETHAZINE 25 MG/ML VIAL IV PRN (16:19)
[2017-02-27] MEDS ORDERED: DOCUSATE SODIUM 100 MG CAPSULE PO PRN (16:19)
[2017-02-27] MEDS ORDERED: ALBUTEROL SULFATE 2.5 MG/3 ML NEBULIZER NEB PRN (16:19)
[2017-02-27] MEDS ORDERED: ACETAMINOPHEN 325 MG TABLET PO PRN (16:19)
[2017-02-27] MEDS ORDERED: HYDROcodone/APAP 5/325MG TABLET PO PRN (16:19)
[2017-02-27] MEDS ORDERED: [UNRECOGNIZED DRUG - REMARK] IV SCH (17:00)
[2017-02-27 18:35] LABS: ALT/SGPT 15 U/l (0-40); Albumin 3.4 gm/dL (3.2-5.2); Albumin/Globulin Ratio 1.7 (1.0-2.3); Alkaline Phosphatase 85 U/L (39-117); Bilirubin,Direct < 0.2 mg/dL (0.0-0.3); Blood Urea Nitrogen 20 mg/dl (8-23); Gamma Glutamyl Transpeptidase 46 U/L (5-36); Magnesium 2.3 mg/dL (1.6-2.5); Prealbumin 15.1 mg/dl (20-40); Uric Acid 2.9 mg/dL (2.5-8.0)
--- NOTE | 2017-02-27 19:40 | Internal Med Progress Note ---
Medical - PN: Subj Patient information: Note initiated : 02/27/17 at 7:35 pm Patient: Milady Rdz 67 y/o F admitted on 02/26/17 for Recto-Vaginal Fistula/ Severe Anemia. Interval history: February 26, 2017: History of present illness: Ms. Rdz is a 67 year old with a long-standing history of severe weight loss and kyphoscoliosis. She reports that she developed worsening scoliosis in her 50s with recurrent compression fractures, and thinks that she started losing weight around that time. She believes her weight has been in the 80 pound range since at least 2001. She does have a family history of colon cancer, but never agreed to screening colonoscopy, because she recalls her mother saying it was painful. Patient reports that she had a bad case of sciatica last year, and became very sedentary at that time and then developed constipation followed by rectal bleeding at that time it was thought she had bleeding hemorrhoids. That then settled down. Then about 4 weeks ago, she started to have vaginal bleeding. She thought initially it was just hemorrhoids acting up. However, she is also noticed passing gas and stool from the vaginal area. She is having occasional sweats. She thought perhaps she had a urinary tract infection, so presented to our emergency room a few days ago. She was diagnosed with UTI and given an antibiotic. She returned today, because she continues to see blood and probable stool from the vaginal area. She also notes that her perineal area seems to be getting macerated. Otherwise, she denies recent fever, but has had some occasional sweats, particularly at night. She denies headaches or dizziness, new eye or ear symptoms, sore throat or cough. She denies chest pain or palpitations. She does have mild dyspnea with exertion, for the last year or so. She denies abdominal pain, nausea or vomiting. She says her stools been fairly loose lately, and she does have some urgency to stool. She denies significant dysuria. She says she may have lost a little bit of weight over the last few years, but believes she was at 88 pounds about 15 years ago. ER evaluation included a CT scan, which confirmed a mass in the rectovaginal area, which is eroding through. Dr. Ruth evaluated the patient in the emergency room, and requested admission to work on her nutritional status and correct her severe anemia, prior to considering diverting colostomy. February 27: Today, the patient says she has been having some intermittent pain around her hip areas, but then passed stool and gas, and the pain got better. She otherwise is not having much in the way of discomfort. Dr. Ruth had a long conversation with her today, explaining how colostomies work and that she probably has a tumor that will need treatment with radiation and/or chemotherapy. She seems willing to go through the process of figuring out if what she has is treatable and/or curable. She is a little disappointed that she is still passing stool through the vagina. For some reason she thought the Briones catheter might relieve that. Otherwise, she denies fever chills chest pain or shortness of breath, nausea or vomiting. - Constitutional Vitals: Vital Signs Temp Pulse Resp BP Pulse Ox 98.6 F 56 L 16 107/79 99 02/27/17 15:27 02/27/17 15:00 02/27/17 15:27 02/27/17 15:27 02/27/17 15:27 Period Temp Pulse Resp BP Sys/Shah Pulse Ox Last 24 Hr 98.2 F-99.0 F 56-56 16-18 96-129/71-79 95-99 Intake and Output 02/27/17 02/27/17 02/27/17 05:59 13:59 21:59 Intake Total 694 / 694 1213 / 1213 Output Total 600 / 600 150 / 150 400 / 400 Balance 94 / 94 1063 / 1063 -400 / -400 Weight 76 lb 6.4 oz Patient Weight 02/28/17 05:59 Weight 76 lb 6.4 oz Intake & Output: Intake & Output 02/27/17 02/27/17 02/27/17 05:59 13:59 21:59 Intake Total 694 / 694 1213 / 1213 Output Total 600 / 600 150 / 150 400 / 400 Balance 94 / 94 1063 / 1063 -400 / -400 Weight 76 lb 6.4 oz Intake: IV 96 / 96 1213 / 1213 Sodium Chloride 0.9% 250 46 / 46 113 / 113 ml @ 20 mls/hr IV . [id number] [facility] Rx#:[id number] Dextrose 5%-1/2Ns W/20Meq 1000 / 1000 KCl 1,000 ml @ 100 mls/ hr IV Q10H [facility] Rx#: [id number] Zosyn 3.375 gm In 50 / 50 100 / 100 Dextrose 5% in Water 50 ml @ 100 mls/hr IV Q6H [facility] Rx#:[id number] Blood Product 598 / 598 Output: Urine Catheter Amount 400 / 400 Void Amount 150 / 150 Urine/Stool Mix 600 / 600 She is severely kyphotic, and cachectic in appearance. She is able to walk with a walker. Neck is supple without obvious lymphadenopathy or JVD. Cardiac exam shows regular rate and rhythm. Lungs are clear to auscultation. Abdomen is soft with active bowel sounds. Extremities show trace pitting edema. Medical - PN: Obj Da - Labs CBC & Chem 7: 02/27/17 03:47 02/27/17 16:45 Labs: Abnormal Lab Results 02/27/17 02/27/17 02/27/17 16:45 03:47 03:47 WBC 4.2 L Hgb 11.1 L Hct 34.9 L MCV 75.6 L MCH 24.1 L RDW 20.9 H [place] % (Auto) 13.8 H Lymph # (Auto) 0.8 L Carbon Dioxide 21 L BUN 24 H Glucose 107 H Calcium 8.3 L 8.3 L GGT 46 H 47 H Total Protein 5.4 L 5.7 L Albumin 3.0 L Globulin 2.0 L Prealbumin 15.1 L February 27: Central line with the tip in the inferior right atrium. No infiltrates. February 26: CT of abdomen and pelvis: Findings suspicious for rectovaginal fistula. No intra-abdominal abscess. Multiple hepatic hemangiomas. Cachexia. No other significant abnormalities. Chest x-ray shows severe left convex thoracolumbar scoliosis. No acute infiltrates. CBC: White blood cell count 4000, hemoglobin 8, hematocrit 27.9, platelets 360, 000. Differential shows abnormal RBC morphology, with hypochromasia, anisocytosis, microcytosis, ovalocytes, and acanthocytes. MRSA nasal screen is negative. February 24: Urine culture grew 20-30,000 mixed skin kellie. Urine screen for chlamydia and Neisseria was negative. March 11, 2016: Hemoglobin was 11, with hematocrit 35.5. RDW elevated at 16.9. March 2016: Echocardiogram: Bileaflet mitral prolapse with mitral regurgitation moderately severe, mild left atrial enlargement. Mild pulmonary hypertension. Atrial septal aneurysm, normal variant. Meds: Medications Acetaminophen (Tylenol) 650 mg PO Q6HP PRN PRN Reason: PAIN/FEVER > 101 Last Admin: 02/27/17 17:36 Dose: 650 mg Hydrocodone Bitart/Acetaminophen ([place] 5/325mg) 1 tab PO Q4HP PRN PRN Reason: Pain Albuterol Sulfate (Ventolin) 2.5 mg NEB Q4HRT PRN PRN Reason: Shortness Of Breath Or Wheezing Docusate Sodium (Colace) 100 mg PO BID PRN PRN Reason: Constipation Famotidine (Pepcid) 20 mg IV Q12 [facility] Heparin Sodium (Porcine) (Heparin) 5,000 unit SQ Q12 [facility] Heparin Sodium (Porcine) (Heparin Flush) 2 ml IV Q12 [facility] Potassium Chloride/Dextrose/Sod Cl (Dextrose 5%-1/2ns W/20meq Kcl) 1,000 mls @ 100 mls/hr IV Q10H [facility] Piperacillin Sod/Tazobactam (Sod 3.375 gm/ Dextrose) 50 mls @ 100 mls/hr IV Q6H [facility] Last Admin: 02/27/17 17:48 Dose: 100 mls/hr Calcium Gluconate 5 meq/Potassium Chloride 20 meq/Multivitamins/Minerals 10 ml/ Selenium 60 mcg/ Amino Acids 1,032.2526 mls @ 20 mls/hr IV Q24H [facility] Fat Emulsion Intravenous 250 (ml/ Premix) 250 mls @ 25 mls/hr IV [id number] [facility] Magnesium Hydroxide (Milk Of Magnesia) 30 ml PO DAILYP PRN PRN Reason: Constipation Morphine Sulfate (Morphine) 1 mg IV Q2HP PRN PRN Reason: Pain Naloxone HCl (Narcan) 0.1 mg IV Q2MIN PRN PRN Reason: Opiate Reversal Promethazine HCl (Phenergan) 12.5 mg IV Q4-6HP PRN PRN Reason: Nausea And Vomiting Sodium Chloride (Saline Flush) 10 ml IV UD PRN PRN Reason: FLUSH Sodium Chloride (Saline Flush) 10 ml IV UD PRN PRN Reason: Flush Sodium Chloride (Saline Flush) 10 ml IV Q8 [facility] Medical - PN: A/P - Time Spent With Patient Total time spent is greater than 50% in coordination of care (as documented) at patient's floor/unit and/or counseling patient: 15 - 24 minutes (1) Recto-vaginal fistula Status: Acute Current Visit: Yes (2) Severe anemia Status: Acute Current Visit: Yes (3) Kyphoscoliosis and scoliosis Status: Chronic Current Visit: Yes (4) Cachexia Status: Chronic Current Visit: No - Narrative A/P Narrative: #1. GI/. Patient presents with bleeding and stool per vagina. CT findings are consistent with possible mass eroding through the bowel and vaginal lewis, creating a fistula. The patient appears to be severely malnourished, but will need a diverting colostomy. She has been admitted to work on correcting anemia, and consider TPN to be felt per nutrition, prior to surgery. -Dr. Ruth is consulting. -IV Zosyn, to cover possible urinary tract infection, regarding fecal contamination. 2. Malnutrition. Patient is severely cachectic, and apparently has been for quite a few years. Nutrition consult. PICC line could not be placed today. Dr. Ruth placed a central line. Per the radiology report, this needs to be pulled back 8 cm. -Sas Developer recommends boost breeze orally daily. And also she recommends TPN , Clinimix, to start at 20 mL/h and advance to 40. Also lipids 3 times a week. 3. Severe anemia, microcytic. This is very worrisome for colon cancer, in the setting of her family history and her presentation. -Transfused to hemoglobin above 10. 4. CODE STATUS: The patient requests a no CODE STATUS. She does not appear to have a formal POA and writing, but says her brother in [place] is her closest relative, and should act as her POA. 5. DVT prophylaxis: I will use subcu heparin and SCDs for now. Heparin will be discontinued prior to surgery. 6. History of chronic and severe scoliosis and compression fractures. Pain meds as needed. 7. Patient has history of mitral valve prolapse. She will be on perioperative antibiotics, regarding infection risk. 8. Psychiatric. The patient is quite upset by her diagnosis. She may end up needing an antidepressant, at least in the short-term. It might be worthwhile to put her on something that might improve her appetite. Medical - PN: Qual - VTE Deep Vein Thrombosis/Pulmonary Embolism Present on Admission: No
[2017-02-27] MEDS: 0.9 % SODIUM CHLORIDE 10 ML SYRINGE IV SCH (22:57)
[2017-02-28] MEDS: PIPERACILLIN SODIUM/TAZOBACTAM 3.375 GM in DEXTROSE 5% IN WATER 50 ML IV SCH ×4 (00:17→17:20)
[2017-02-28] MEDS: 0.9 % SODIUM CHLORIDE 10 ML SYRINGE IV SCH ×2 (05:49→12:08)
[2017-02-28 07:12] LABS: Basophils # (Auto) 0 K/mcL (0.0-0.3); Basophils % (Auto) 0 % (0.0-2.0); Eosinophils # (Auto) 0.1 K/mcL (0.0-0.7); Eosinophils % (Auto) 1.5 % (0.0-7.0); Granulocytes % (Auto) 71.1 % (38.0-78.0); Lymphocytes # (Auto) 0.6 K/mcL (1.5-4.8); Mean Cell Volume 74.7 fL (80.0-100.0); Mean Corpuscular HGB Conc 31.2 g/dL (31.0-36.0); Mean Corpuscular Hemoglobin 23.3 pg (26.0-34.0); Monocytes # (Auto) 0.6 K/mcL (0.1-0.9); Monocytes % (Auto) 13.4 % (1.0-12.0); Platelet Count 348 K/mcL (140-440); RBC 4.57 M/mcL (4.00-5.20); Red Cell Distribution Width 21.1 % (11.5-14.5)
[2017-02-28 08:09] LABS: ALT/SGPT 14 U/l (0-40); Albumin 3.3 gm/dL (3.2-5.2); Albumin/Globulin Ratio 1.4 (1.0-2.3); Alkaline Phosphatase 77 U/L (39-117); Bilirubin,Direct < 0.2 mg/dL (0.0-0.3); Blood Urea Nitrogen 17 mg/dl (8-23); Gamma Glutamyl Transpeptidase 44 U/L (5-36); Magnesium 2.2 mg/dL (1.6-2.5); Uric Acid 2.4 mg/dL (2.5-8.0)
[2017-02-28] MEDS: HEPARIN 5,000 UNIT/ML VIAL SQ SCH ×2 (08:48→21:30)
[2017-02-28] MEDS: FAMOTIDINE/PF 20 MG/2 ML VIAL IV SCH ×2 (08:48→21:30)
[2017-02-28] MEDS: DEXTROSE 5%-1/2NS W/20MEQ KCL 1,000 ML IV SCH ×2 (08:48→10:07)
--- NOTE | 2017-02-28 09:11 | General Surgery Progress Note ---
Subjective Patient reports: feels better, still having pain, flatus, bowel movement, diarrhea, blood in stool, afebrile Narrative: Note initiated : 02/28/17 at 9:08 am Service Date, if different from initiated Date: [] Patient: Milady Rdz 67 y/o F admitted on 02/26/17 for Recto-Vaginal Fistula/ Severe Anemia. Chief Complaint: [Patient is stable. She complains of abdominal pain and gas pain. She also has some difficulty with sitting but this is due to her very prominent bony pressure due to severe cachexia. She still has bleeding per vagina and per rectum. Stool per vagina persists. She was finally started on TPN but is only receiving 20 cc/h at this time.] Objective Temp Pulse Resp BP Pulse Ox 97.2 F 57 L 14 128/82 100 02/28/17 06:55 02/28/17 06:55 02/28/17 06:55 02/28/17 06:55 02/28/17 08:00 - Additional Data Intake & Output - Last 24 hours: Intake & Output 02/26/17 02/27/17 02/28/17 03/01/17 05:59 05:59 05:59 05:59 Intake Total 744 / 744 1313 / 1313 988 / 988 Output Total 1150 / 1150 1550 / 1550 350 / 350 Balance -406 / -406 -237 / -237 638 / 638 Weight 76 lb 6.4 oz 78 lb 8 oz - General physical appearance moderate pain, cachectic, chronically ill - Eyes PERRL - ENT normal mucosa, no congestion - Neck trachea midline, no venous distension, limited ROM - Respiratory clear to auscultation - Cardiovascular Cardiovascular exam: Present: normal rate and rhythm, RRR, +S1, +S2. Absent: JVD - Abdomen soft, distended (Abdomen is mildly distended due to dilated stomach and colon with some tenderness to palpation. She has hyperactive bowel sounds) Hernia: none - Integumentary no rash, no growths, no abnormal pigmentation - Neurologic normal sensation, other (Severe kyphoscoliosis with marked deformity) - Psychiatric oriented to time, oriented to person, oriented to place, speech is normal, memory intact - Labs 02/28/17 06:05 02/28/17 06:05 Diabetes panel 02/27/17 02/28/17 Range/Units 16:45 06:05 Sodium 137 139 (133-145) mmol/L Potassium 4.7 4.5 (3.3-5.1) mmol/L Chloride 102 103 (96-108) mmol/L Carbon Dioxide 21 L 23 (22-30) mmol/L BUN 20 17 (8-23) mg/dl Creatinine 0.9 0.9 (0.6-1.1) mg/dl Glucose 107 H 120 H (70-105) mg/dL Calcium 8.3 L 8.4 L (8.6-10.4) mg/dl AST 17 16 (0-37) U/l ALT 15 14 (0-40) U/l Alkaline Phosphatase 85 77 (39-117) U/L Total Protein 5.4 L 5.7 L (5.9-8.4) gm/dL Albumin 3.4 3.3 (3.2-5.2) gm/dL Triglycerides 86 60 (<150) mg/dl Calcium panel 02/27/17 02/28/17 Range/Units 16:45 06:05 Calcium 8.3 L 8.4 L (8.6-10.4) mg/dl Phosphorus 3.8 3.3 (2.7-4.5) mg/dL Albumin 3.4 3.3 (3.2-5.2) gm/dL Pituitary panel 02/27/17 02/28/17 Range/Units 16:45 06:05 Sodium 137 139 (133-145) mmol/L Potassium 4.7 4.5 (3.3-5.1) mmol/L Chloride 102 103 (96-108) mmol/L Carbon Dioxide 21 L 23 (22-30) mmol/L BUN 20 17 (8-23) mg/dl Creatinine 0.9 0.9 (0.6-1.1) mg/dl Glucose 107 H 120 H (70-105) mg/dL Calcium 8.3 L 8.4 L (8.6-10.4) mg/dl Adrenal panel 02/27/17 02/28/17 Range/Units 16:45 06:05 Sodium 137 139 (133-145) mmol/L Potassium 4.7 4.5 (3.3-5.1) mmol/L Chloride 102 103 (96-108) mmol/L Carbon Dioxide 21 L 23 (22-30) mmol/L BUN 20 17 (8-23) mg/dl Creatinine 0.9 0.9 (0.6-1.1) mg/dl Glucose 107 H 120 H (70-105) mg/dL Calcium 8.3 L 8.4 L (8.6-10.4) mg/dl Total Bilirubin 0.5 0.4 (0.0-1.0) mg/dL AST 17 16 (0-37) U/l ALT 15 14 (0-40) U/l Alkaline Phosphatase 85 77 (39-117) U/L Total Protein 5.4 L 5.7 L (5.9-8.4) gm/dL Albumin 3.4 3.3 (3.2-5.2) gm/dL Assessment and Plan (1) Rectal malignant neoplasm Status: Acute Assessment and plan: TPN will be continued Bowel prep will be started today Tenderness is scheduled for Friday for examination under anesthesia with rectal and vaginal biopsies and end colostomy CEA is 7.5 Current Visit: Yes (2) Recto-vaginal fistula Status: Acute Current Visit: Yes (3) Urinary tract infection Status: Acute Assessment and plan: Under treatment with antibiotics Culture results pending Current Visit: No (4) Severe anemia Status: Acute Assessment and plan: Continued to slow bleeding so patient will probably need transfusion on Friday preoperatively Current Visit: Yes (5) Kyphoscoliosis and scoliosis Status: Chronic Current Visit: Yes (6) Lumbar disc disease with radiculopathy Status: Acute Current Visit: Yes - Time Spent With Patient Total time spent is greater than 50% in coordination of care (as documented) at patient's floor/unit and/or counseling patient:
--- NOTE | 2017-02-28 10:35 | Internal Med Progress Note ---
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 Interval history: February 26, 2017: History of present illness: Ms. Rdz is a 67 year old with a long-standing history of severe weight loss and kyphoscoliosis. She reports that she developed worsening scoliosis in her 50s with recurrent compression fractures, and thinks that she started losing weight around that time. She believes her weight has been in the 80 pound range since at least 2001. She does have a family history of colon cancer, but never agreed to screening colonoscopy, because she recalls her mother saying it was painful. Patient reports that she had a bad case of sciatica last year, and became very sedentary at that time and then developed constipation followed by rectal bleeding at that time it was thought she had bleeding hemorrhoids. That then settled down. Then about 4 weeks ago, she started to have vaginal bleeding. She thought initially it was just hemorrhoids acting up. However, she is also noticed passing gas and stool from the vaginal area. She is having occasional sweats. She thought perhaps she had a urinary tract infection, so presented to our emergency room a few days ago. She was diagnosed with UTI and given an antibiotic. She returned today, because she continues to see blood and probable stool from the vaginal area. She also notes that her perineal area seems to be getting macerated. Otherwise, she denies recent fever, but has had some occasional sweats, particularly at night. She denies headaches or dizziness, new eye or ear symptoms, sore throat or cough. She denies chest pain or palpitations. She does have mild dyspnea with exertion, for the last year or so. She denies abdominal pain, nausea or vomiting. She says her stools been fairly loose lately, and she does have some urgency to stool. She denies significant dysuria. She says she may have lost a little bit of weight over the last few years, but believes she was at 88 pounds about 15 years ago. ER evaluation included a CT scan, which confirmed a mass in the rectovaginal area, which is eroding through. Dr. Ruth evaluated the patient in the emergency room, and requested admission to work on her nutritional status and correct her severe anemia, prior to considering diverting colostomy. February 27: Today, the patient says she has been having some intermittent pain around her hip areas, but then passed stool and gas, and the pain got better. She otherwise is not having much in the way of discomfort. Dr. Ruth had a long conversation with her today, explaining how colostomies work and that she probably has a tumor that will need treatment with radiation and/or chemotherapy. She seems willing to go through the process of figuring out if what she has is treatable and/or curable. She is a little disappointed that she is still passing stool through the vagina. For some reason she thought the Briones catheter might relieve that. Otherwise, she denies fever chills chest pain or shortness of breath, nausea or vomiting. February 28: The patient notes that she continues to have some mild chronic back discomfort. She is also continuing to have a bloody mixed with stool discharge from her vaginal area. She is still quite distressed about the diagnosis and the upcoming surgery. She is also a little bit nervous about the bowel prep. However, otherwise she is more confident about going forward with the surgery, and understands that she needs to address her likely underlying cancer. Otherwise, she denies fever or chills, headaches or dizziness, chest pain or shortness of breath, nausea or vomiting. Briones catheter is in place. - Constitutional Vitals: Vital Signs Temp Pulse Resp BP Pulse Ox 97.2 F 57 L 14 128/82 100 02/28/17 06:55 02/28/17 06:55 02/28/17 06:55 02/28/17 06:55 02/28/17 08:00 Period Temp Pulse Resp BP Sys/Shah Pulse Ox Last 24 Hr 97.2 F-98.7 F 56-60 14-18 96-128/65-82 96-100 Intake and Output 02/27/17 02/28/17 02/28/17 21:59 05:59 13:59 Intake Total 50 / 50 50 / 50 988 / 988 Output Total 400 / 400 1000 / 1000 350 / 350 Balance -350 / -350 -950 / -950 638 / 638 Weight 78 lb 8 oz Intake & Output: Intake & Output 02/27/17 02/28/17 02/28/17 21:59 05:59 13:59 Intake Total 50 / 50 50 / 50 988 / 988 Output Total 400 / 400 1000 / 1000 350 / 350 Balance -350 / -350 -950 / -950 638 / 638 Weight 78 lb 8 oz Intake: IV 50 / 50 50 / 50 988 / 988 Dextrose 5%-1/2Ns W/20Meq 988 / 988 KCl 1,000 ml @ 100 mls/ hr IV Q10H [facility] Rx#: [id number] Zosyn 3.375 gm In 50 / 50 50 / 50 Dextrose 5% in Water 50 ml @ 100 mls/hr IV Q6H [facility]ER[facility] Rx#:[id number] Oral 0 / 0 Output: Urine Catheter Amount 400 / 400 1000 / 1000 350 / 350 Other: # Bowel Movements 1 1 # of times incontinent of 1 1 Bowels She is severely kyphotic, and cachectic in appearance. She is sitting up in bed , and is not in any acute distress. Affect is somewhat depressed. Neck is supple without obvious lymphadenopathy or JVD. Cardiac exam shows regular rate and rhythm. Lungs are clear to auscultation. Abdomen is soft with active bowel sounds. Extremities show trace pitting edema. Medical - PN: Obj Da - Labs CBC & Chem 7: 02/28/17 06:05 02/28/17 06:05 Labs: Abnormal Lab Results 02/28/17 02/28/17 02/28/17 06:05 06:05 06:05 WBC 4.4 L Hgb 10.6 L Hct 34.1 L MCV 74.7 L MCH 23.3 L RDW 21.1 H MPV 7.0 L Lymph % (Auto) 14.0 L [place] % (Auto) 13.4 H Lymph # (Auto) 0.6 L Carbon Dioxide BUN Glucose 120 H Uric Acid 2.4 L Calcium 8.4 L GGT 44 H Total Protein 5.7 L Albumin Globulin Prealbumin Carcinoembryonic Ag 9.5 H 02/27/17 02/27/17 02/27/17 16:45 03:47 03:47 WBC 4.2 L Hgb 11.1 L Hct 34.9 L MCV 75.6 L MCH 24.1 L RDW 20.9 H MPV Lymph % (Auto) [place] % (Auto) 13.8 H Lymph # (Auto) 0.8 L Carbon Dioxide 21 L BUN 24 H Glucose 107 H Uric Acid Calcium 8.3 L 8.3 L GGT 46 H 47 H Total Protein 5.4 L 5.7 L Albumin 3.0 L Globulin 2.0 L Prealbumin 15.1 L Carcinoembryonic Ag february 27: Central line with the tip in the inferior right atrium. No infiltrates. Chest x-ray: Shows a left-sided central venous catheter. Radiology initially thought the tip was coiled in the right atrium, but Dr. Ruth reviewed the film , and the placement is correct. Severe scoliosis is again demonstrated. No pulmonary infiltrates are noted. February 26: CT of abdomen and pelvis: Findings suspicious for rectovaginal fistula. No intra-abdominal abscess. Multiple hepatic hemangiomas. Cachexia. No other significant abnormalities. Chest x-ray shows severe left convex thoracolumbar scoliosis. No acute infiltrates. CBC: White blood cell count 4000, hemoglobin 8, hematocrit 27.9, platelets 360, 000. Differential shows abnormal RBC morphology, with hypochromasia, anisocytosis, microcytosis, ovalocytes, and acanthocytes. MRSA nasal screen is negative. February 24: Urine culture grew 20-30,000 mixed skin kellie. Urine screen for chlamydia and Neisseria was negative. March 11, 2016: Hemoglobin was 11, with hematocrit 35.5. RDW elevated at 16.9. March 2016: Echocardiogram: Bileaflet mitral prolapse with mitral regurgitation moderately severe, mild left atrial enlargement. Mild pulmonary hypertension. Atrial septal aneurysm, normal variant. Meds: Medications Acetaminophen (Tylenol) 650 mg PO Q6HP PRN PRN Reason: PAIN/FEVER > 101 Last Admin: 02/27/17 17:36 Dose: 650 mg Hydrocodone Bitart/Acetaminophen ([place] 5/325mg) 1 tab PO Q4HP PRN PRN Reason: Pain Albuterol Sulfate (Ventolin) 2.5 mg NEB Q4HRT PRN PRN Reason: Shortness Of Breath Or Wheezing Diagnostic Test (Pha) (Accu-Chek) 1 each FS Q6 [facility] Last Admin: 02/28/17 05:47 Dose: 1 each Docusate Sodium (Colace) 100 mg PO BID PRN PRN Reason: Constipation Famotidine (Pepcid) 20 mg IV Q12 [facility] Last Admin: 02/28/17 08:48 Dose: 20 mg Heparin Sodium (Porcine) (Heparin) 5,000 unit SQ Q12 [facility] Last Admin: 02/28/17 08:48 Dose: 5,000 unit Heparin Sodium (Porcine) (Heparin Flush) 2 ml IV Q12 [facility] Last Admin: 02/28/17 08:48 Dose: 2 ml Potassium Chloride/Dextrose/Sod Cl (Dextrose 5%-1/2ns W/20meq Kcl) 1,000 mls @ 100 mls/hr IV Q10H [facility] Last Admin: 02/28/17 08:48 Dose: 100 mls/hr Piperacillin Sod/Tazobactam (Sod 3.375 gm/ Dextrose) 50 mls @ 100 mls/hr IV Q6H [facility] Last Admin: 02/28/17 05:47 Dose: 100 mls/hr Calcium Gluconate 5 meq/Potassium Chloride 20 meq/Multivitamins/Minerals 10 ml/ Selenium 60 mcg/ Amino Acids 1,032.2526 mls @ 20 mls/hr IV Q24H [facility] Stop: 02/28/17 16:59 Last Admin: 02/27/17 23:10 Dose: 20 mls/hr Fat Emulsion Intravenous 250 (ml/ Premix) 250 mls @ 25 mls/hr IV [id number] [facility] Calcium Gluconate 5 meq/Potassium Chloride 20 meq/Multivitamins/Minerals 10 ml/ Selenium 60 mcg/ Magnesium Sulfate 8.12 meq/ Sodium Phosphate 20 mmol/ Amino Acids 1,040.9193 mls @ 40 mls/hr IV Q24H [facility] Magnesium Hydroxide (Milk Of Magnesia) 30 ml PO DAILYP PRN PRN Reason: Constipation Morphine Sulfate (Morphine) 1 mg IV Q2HP PRN PRN Reason: Pain Naloxone HCl (Narcan) 0.1 mg IV Q2MIN PRN PRN Reason: Opiate Reversal Promethazine HCl (Phenergan) 12.5 mg IV Q4-6HP PRN PRN Reason: Nausea And Vomiting Sodium Chloride (Saline Flush) 10 ml IV UD PRN PRN Reason: FLUSH Sodium Chloride (Saline Flush) 10 ml IV UD PRN PRN Reason: Flush Sodium Chloride (Saline Flush) 10 ml IV Q8 [facility] Last Admin: 02/28/17 05:49 Dose: Not Given Medical - PN: A/P - Time Spent With Patient Total time spent is greater than 50% in coordination of care (as documented) at patient's floor/unit and/or counseling patient: 25 - 35 minutes (1) Recto-vaginal fistula Status: Acute Current Visit: Yes (2) Severe anemia Status: Acute Current Visit: Yes (3) Kyphoscoliosis and scoliosis Status: Chronic Current Visit: Yes (4) Cachexia Status: Chronic Current Visit: No - Narrative A/P Narrative: #1. GI/. Patient presents with bleeding and stool per vagina. CT findings are consistent with possible mass eroding through the bowel and vaginal lewis, creating a fistula. The patient appears to be severely malnourished, but will need a diverting colostomy. She has been admitted to work on correcting anemia, and consider TPN to be felt per nutrition, prior to surgery. -Dr. Ruth is consulting. -IV Zosyn, to cover possible urinary tract infection, regarding fecal contamination. 2. Malnutrition. Patient is severely cachectic, and apparently has been for quite a few years. Nutrition consult. - Dr. Ruth placed a central line. Dr. Ruth reviewed the placement, and says it is fine.. -Electronic Transaction Implementer recommends boost breeze orally daily. And also she recommends TPN , Clinimix, to start at 20 mL/h and advance to 40. Also lipids 3 times a week. 3. Severe anemia, microcytic. This is very worrisome for colon cancer, in the setting of her family history and her presentation. However, CEA is also elevated, which may indicate a [employer]AF[employer] GLASS [employer]ST[employer]ER malignancy. Patient did have a complete hysterectomy a number of years ago. -Transfused and hemoglobin carolyne from 8.4-11.1, but is down to 10.6 today. She does have ongoing bleeding, so might require further transfusions. 4. CODE STATUS: The patient requests a no CODE STATUS. She does not appear to have a formal POA and writing, but says her brother in [place] is her closest relative, and should act as her POA. 5. DVT prophylaxis: I will use subcu heparin and SCDs for now. Heparin will be discontinued prior to surgery. 6. History of chronic and severe scoliosis and compression fractures. Pain meds as needed. He generally does not like the way narcotics make her feel , and says Tylenol extra strength generally controls her pain well enough. 7. Patient has history of mitral valve prolapse. She will be on perioperative antibiotics, regarding infection risk. 8. Psychiatric. The patient is quite upset by her diagnosis. She may end up needing an antidepressant, at least in the short-term. It might be worthwhile to put her on something that might improve her appetite. Medical - PN: Qual - VTE Deep Vein Thrombosis/Pulmonary Embolism Present on Admission: No
[2017-02-28] MEDS ORDERED: [UNRECOGNIZED DRUG - REMARK] IV SCH (17:00)
[2017-02-28] MEDS: FAT EMULSION 20% 250 ML in PREMIX 1 BAG IV SCH (17:20)
[2017-02-28] MEDS ORDERED: POTASSIUM CHLORIDE 20 MEQ/10 ML VIAL IV ONE (20:36)
[2017-02-28] MEDS: POTASSIUM CHLORIDE 10 MEQ in 0.45 % SODIUM CHLORIDE 1,000 ML IV SCH (21:29)
[2017-03-01] MEDS: PIPERACILLIN SODIUM/TAZOBACTAM 3.375 GM in DEXTROSE 5% IN WATER 50 ML IV SCH ×5 (00:15→22:11)
[2017-03-01] MEDS: 0.9 % SODIUM CHLORIDE 10 ML SYRINGE IV SCH ×3 (01:41→12:19)
[2017-03-01] MEDS: DEXTROSE 5%-1/2NS W/20MEQ KCL 1,000 ML IV SCH (01:46)
[2017-03-01 05:48] LABS: Basophils # (Auto) 0 K/mcL (0.0-0.3); Basophils % (Auto) 0.6 % (0.0-2.0); Eosinophils # (Auto) 0.2 K/mcL (0.0-0.7); Eosinophils % (Auto) 3.2 % (0.0-7.0); Granulocytes % (Auto) 70.8 % (38.0-78.0); Lymphocytes # (Auto) 0.7 K/mcL (1.5-4.8); Lymphocytes % (Auto) 15.5 % (15.5-49.0); Mean Cell Volume 73.5 fL (80.0-100.0); Mean Corpuscular HGB Conc 31.6 g/dL (31.0-36.0); Mean Corpuscular Hemoglobin 23.2 pg (26.0-34.0); Monocytes # (Auto) 0.5 K/mcL (0.1-0.9); Monocytes % (Auto) 9.9 % (1.0-12.0); Platelet Count 295 K/mcL (140-440); RBC 4.21 M/mcL (4.00-5.20); Red Cell Distribution Width 20.4 % (11.5-14.5)
[2017-03-01] MEDS ORDERED: MAGNESIUM CITRATE 300 ML ORAL.SOL PO ONE ×3 (06:00→14:45)
[2017-03-01 06:09] LABS: ALT/SGPT 11 U/l (0-40); Albumin 3.1 gm/dL (3.2-5.2); Albumin/Globulin Ratio 1.3 (1.0-2.3); Alkaline Phosphatase 65 U/L (39-117); Bilirubin,Direct < 0.2 mg/dL (0.0-0.3); Blood Urea Nitrogen 15 mg/dl (8-23); Gamma Glutamyl Transpeptidase 36 U/L (5-36); Magnesium 2.1 mg/dL (1.6-2.5); Uric Acid 1.6 mg/dL (2.5-8.0)
[2017-03-01] MEDS: HEPARIN 5,000 UNIT/ML VIAL SQ SCH (07:29)
[2017-03-01] MEDS: FAMOTIDINE/PF 20 MG/2 ML VIAL IV SCH ×2 (07:30→22:12)
[2017-03-01] MEDS: POTASSIUM CHLORIDE 10 MEQ in 0.45 % SODIUM CHLORIDE 1,000 ML IV SCH (11:40)
--- NOTE | 2017-03-01 12:59 | Internal Med Progress Note ---
Medical - PN: Subj Patient information: Note initiated : 03/01/17 at 12:58 pm Patient: Milady Rdz 67 y/o F admitted on 02/26/17 for Recto-Vaginal Fistula/ Severe Anemia. Interval history: February 26, 2017: History of present illness: Ms. Rzd is a 67 year old with a long-standing history of severe weight loss and kyphoscoliosis. She reports that she developed worsening scoliosis in her 50s with recurrent compression fractures, and thinks that she started losing weight around that time. She believes her weight has been in the 80 pound range since at least 2001. She does have a family history of colon cancer, but never agreed to screening colonoscopy, because she recalls her mother saying it was painful. Patient reports that she had a bad case of sciatica last year, and became very sedentary at that time and then developed constipation followed by rectal bleeding at that time it was thought she had bleeding hemorrhoids. That then settled down. Then about 4 weeks ago, she started to have vaginal bleeding. She thought initially it was just hemorrhoids acting up. However, she is also noticed passing gas and stool from the vaginal area. She is having occasional sweats. She thought perhaps she had a urinary tract infection, so presented to our emergency room a few days ago. She was diagnosed with UTI and given an antibiotic. She returned today, because she continues to see blood and probable stool from the vaginal area. She also notes that her perineal area seems to be getting macerated. Otherwise, she denies recent fever, but has had some occasional sweats, particularly at night. She denies headaches or dizziness, new eye or ear symptoms, sore throat or cough. She denies chest pain or palpitations. She does have mild dyspnea with exertion, for the last year or so. She denies abdominal pain, nausea or vomiting. She says her stools been fairly loose lately, and she does have some urgency to stool. She denies significant dysuria. She says she may have lost a little bit of weight over the last few years, but believes she was at 88 pounds about 15 years ago. ER evaluation included a CT scan, which confirmed a mass in the rectovaginal area, which is eroding through. Dr. Ruth evaluated the patient in the emergency room, and requested admission to work on her nutritional status and correct her severe anemia, prior to considering diverting colostomy. February 27: Today, the patient says she has been having some intermittent pain around her hip areas, but then passed stool and gas, and the pain got better. She otherwise is not having much in the way of discomfort. Dr. Ruth had a long conversation with her today, explaining how colostomies work and that she probably has a tumor that will need treatment with radiation and/or chemotherapy. She seems willing to go through the process of figuring out if what she has is treatable and/or curable. She is a little disappointed that she is still passing stool through the vagina. For some reason she thought the Briones catheter might relieve that. Otherwise, she denies fever chills chest pain or shortness of breath, nausea or vomiting. February 28: The patient notes that she continues to have some mild chronic back discomfort. She is also continuing to have a bloody mixed with stool discharge from her vaginal area. She is still quite distressed about the diagnosis and the upcoming surgery. She is also a little bit nervous about the bowel prep. However, otherwise she is more confident about going forward with the surgery, and understands that she needs to address her likely underlying cancer. Otherwise, she denies fever or chills, headaches or dizziness, chest pain or shortness of breath, nausea or vomiting. Briones catheter is in place. March 01: Today, the patient says she feels about the same. He still has some mild abdominal discomfort which she blames on bloating. She continues to have stool and blood pass through her vagina, although this does not seem to be of very large volume. She otherwise denies significant pain. She seems to be tolerating the TPN okay. Otherwise, she denies fever or chills, chest pain or palpitations, shortness of breath, nausea or vomiting. Briones catheter remains in place. - Constitutional Vitals: Vital Signs Temp Pulse Resp BP Pulse Ox 97.7 F 57 L 18 98/62 97 03/01/17 06:56 03/01/17 04:00 03/01/17 06:56 03/01/17 06:56 03/01/17 08:00 Period Temp Pulse Resp BP Sys/Shah Pulse Ox Last 24 Hr 96.2 F-98.1 F 56-75 16-18 98-147/62-82 97-100 Intake and Output 02/28/17 03/01/17 03/01/17 21:59 05:59 13:59 Intake Total 1655 / 1655 400 / 400 1141 / 1141 Output Total 550 / 550 1000 / 1000 550 / 550 Balance 1105 / 1105 -600 / -600 591 / 591 Weight 82 lb 8 oz Intake & Output: Intake & Output 02/28/17 03/01/17 03/01/17 21:59 05:59 13:59 Intake Total 1655 / 1655 400 / 400 1141 / 1141 Output Total 550 / 550 1000 / 1000 550 / 550 Balance 1105 / 1105 -600 / -600 591 / 591 Weight 82 lb 8 oz Intake: IV 1050 / 1050 300 / 300 901 / 901 Intralipid 20% 250 ml In 250 / 250 Premix 1 Bag @ 25 mls/hr IV [id number]@1600 [facility] Rx#: [id number] Zosyn 3.375 gm In 50 / 50 50 / 50 50 / 50 Dextrose 5% in Water 50 ml @ 100 mls/hr IV Q6H [facility] Rx#:[id number] Potassium Chloride 10 Meq 851 / 851 In Sodium Chloride 0.45% 1,000 ml @ 60 mls/hr IV .[id number] [facility] Rx#: [id number] Oral 240 / 240 100 / 100 240 / 240 TPN/PPN 365 / 365 Output: Urine Catheter Amount 550 / 550 1000 / 1000 550 / 550 Emesis 0 / 0 Other: Meal Dinner Breakfast Percent of Meal Consumed Refused 100% Feeding Ability Independent Independent # Bowel Movements 1 0 # of times incontinent of 3 Bowels She is severely kyphotic, and cachectic in appearance. She is sitting up in a chair, and is not in any acute distress. Affect is somewhat depressed. Neck is supple without obvious lymphadenopathy or JVD. Cardiac exam shows regular rate and rhythm. Lungs are clear to auscultation. Abdomen is soft with active bowel sounds. Briones is draining pink tinged urine. Extremities show trace pitting edema. Medical - PN: Obj Da - Labs CBC & Chem 7: 03/01/17 04:45 03/01/17 04:45 Labs: Abnormal Lab Results 03/01/17 03/01/17 02/28/17 04:45 04:45 06:05 WBC Hgb 9.8 L Hct 30.9 L MCV 73.5 L MCH 23.2 L RDW 20.4 H MPV 7.2 L Lymph % (Auto) Irion % (Auto) Lymph # (Auto) 0.7 L Carbon Dioxide BUN Glucose 115 H Uric Acid 1.6 L Calcium 8.2 L GGT Total Protein 5.4 L Albumin 3.1 L Globulin Prealbumin Carcinoembryonic Ag 9.5 H 02/28/17 02/28/17 02/27/17 06:05 06:05 16:45 WBC 4.4 L Hgb 10.6 L Hct 34.1 L MCV 74.7 L MCH 23.3 L RDW 21.1 H MPV 7.0 L Lymph % (Auto) 14.0 L Irion % (Auto) 13.4 H Lymph # (Auto) 0.6 L Carbon Dioxide 21 L BUN Glucose 120 H 107 H Uric Acid 2.4 L Calcium 8.4 L 8.3 L GGT 44 H 46 H Total Protein 5.7 L 5.4 L Albumin Globulin 2.0 L Prealbumin 15.1 L Carcinoembryonic Ag 02/27/17 02/27/17 03:47 03:47 WBC 4.2 L Hgb 11.1 L Hct 34.9 L MCV 75.6 L MCH 24.1 L RDW 20.9 H MPV Lymph % (Auto) Irion % (Auto) 13.8 H Lymph # (Auto) 0.8 L Carbon Dioxide BUN 24 H Glucose Uric Acid Calcium 8.3 L GGT 47 H Total Protein 5.7 L Albumin 3.0 L Globulin Prealbumin Carcinoembryonic Ag february 27: Central line with the tip in the inferior right atrium. No infiltrates. Chest x-ray: Shows a left-sided central venous catheter. Radiology initially thought the tip was coiled in the right atrium, but Dr. Ruth reviewed the film , and the placement is correct. Severe scoliosis is again demonstrated. No pulmonary infiltrates are noted. February 26: CT of abdomen and pelvis: Findings suspicious for rectovaginal fistula. No intra-abdominal abscess. Multiple hepatic hemangiomas. Cachexia. No other significant abnormalities. Chest x-ray shows severe left convex thoracolumbar scoliosis. No acute infiltrates. CBC: White blood cell count 4000, hemoglobin 8, hematocrit 27.9, platelets 360, 000. Differential shows abnormal RBC morphology, with hypochromasia, anisocytosis, microcytosis, ovalocytes, and acanthocytes. MRSA nasal screen is negative. February 24: Urine culture grew 20-30,000 mixed skin kellie. Urine screen for chlamydia and Neisseria was negative. March 11, 2016: Hemoglobin was 11, with hematocrit 35.5. RDW elevated at 16.9. March 2016: Echocardiogram: Bileaflet mitral prolapse with mitral regurgitation moderately severe, mild left atrial enlargement. Mild pulmonary hypertension. Atrial septal aneurysm, normal variant. Meds: Medications Acetaminophen (Tylenol) 650 mg PO Q6HP PRN PRN Reason: PAIN/FEVER > 101 Last Admin: 02/27/17 17:36 Dose: 650 mg Hydrocodone Bitart/Acetaminophen ([place] 5/325mg) 1 tab PO Q4HP PRN PRN Reason: Pain Albuterol Sulfate (Ventolin) 2.5 mg NEB Q4HRT PRN PRN Reason: Shortness Of Breath Or Wheezing Diagnostic Test (Pha) (Accu-Chek) 1 each FS Q6 [facility] Last Admin: 03/01/17 11:37 Dose: 1 each Docusate Sodium (Colace) 100 mg PO BID PRN PRN Reason: Constipation Famotidine (Pepcid) 20 mg IV Q12 [facility] Last Admin: 03/01/17 07:30 Dose: 20 mg Heparin Sodium (Porcine) (Heparin) 5,000 unit SQ Q12 [facility] Last Admin: 03/01/17 07:29 Dose: 5,000 unit Heparin Sodium (Porcine) (Heparin Flush) 2 ml IV Q12 [facility] Last Admin: 03/01/17 07:30 Dose: 2 ml Piperacillin Sod/Tazobactam (Sod 3.375 gm/ Dextrose) 50 mls @ 100 mls/hr IV Q6H [facility] Last Admin: 03/01/17 11:37 Dose: 100 mls/hr Fat Emulsion Intravenous 250 (ml/ Premix) 250 mls @ 25 mls/hr IV [id number]@1600 [facility] Last Infusion: 03/01/17 04:03 Dose: Infused Calcium Gluconate 5 meq/Potassium Chloride 20 meq/Multivitamins/Minerals 10 ml/ Selenium 60 mcg/ Magnesium Sulfate 8.12 meq/ Sodium Phosphate 20 mmol/ Amino Acids 1,040.9193 mls @ 40 mls/hr IV Q24H [facility] Stop: 03/01/17 16:59 Last Admin: 02/28/17 17:20 Dose: 40 mls/hr Potassium Chloride 10 meq/ (Sodium Chloride) 1,005 mls @ 60 mls/hr IV .[id number] [facility] Last Admin: 03/01/17 11:40 Dose: 60 mls/hr Calcium Gluconate 5 meq/Potassium Chloride 40 meq/Multivitamins/Minerals 10 ml/ Selenium 60 mcg/ Magnesium Sulfate 8.12 meq/ Sodium Phosphate 20 mmol/ Amino Acids 1,050.9193 mls @ 40 mls/hr IV Q24H [facility] Magnesium Hydroxide (Milk Of Magnesia) 30 ml PO DAILYP PRN PRN Reason: Constipation Morphine Sulfate (Morphine) 1 mg IV Q2HP PRN PRN Reason: Pain Naloxone HCl (Narcan) 0.1 mg IV Q2MIN PRN PRN Reason: Opiate Reversal Promethazine HCl (Phenergan) 12.5 mg IV Q4-6HP PRN PRN Reason: Nausea And Vomiting Sodium Chloride (Saline Flush) 10 ml IV UD PRN PRN Reason: FLUSH Sodium Chloride (Saline Flush) 10 ml IV UD PRN PRN Reason: Flush Sodium Chloride (Saline Flush) 10 ml IV Q8 [facility] Last Admin: 03/01/17 12:19 Dose: Not Given Medical - PN: A/P - Time Spent With Patient Total time spent is greater than 50% in coordination of care (as documented) at patient's floor/unit and/or counseling patient: 15 - 24 minutes (1) Recto-vaginal fistula Status: Acute Current Visit: Yes (2) Severe anemia Status: Acute Current Visit: Yes (3) Kyphoscoliosis and scoliosis Status: Chronic Current Visit: Yes (4) Cachexia Status: Chronic Current Visit: No - Narrative A/P Narrative: #1. GI/. Patient presents with bleeding and stool per vagina. CT findings are consistent with possible mass eroding through the bowel and vaginal lewis, creating a fistula. The patient appears to be severely malnourished, but will need a diverting colostomy. She has been admitted to work on correcting anemia, and consider TPN to be felt per nutrition, prior to surgery. -She will be referred to oncology after the colostomy, for consideration of radiation and/or chemotherapy. Biopsies will be done intraoperatively. -Dr. Ruth is consulting. -IV Zosyn, to cover possible urinary tract infection, regarding fecal contamination. 2. Malnutrition. Patient is severely cachectic, and apparently has been for quite a few years. Nutrition consult. - Dr. Ruth placed a central line. Dr. Ruth reviewed the placement, and says it is fine.. -Bumper Operator recommends boost breeze orally daily. And also she recommends TPN , Clinimix, to start at 20 mL/h and advance to 40. Also lipids 3 times a week. 3. Severe anemia, microcytic. This is very worrisome for colon cancer, in the setting of her family history and her presentation. However, CEA is also elevated, which may indicate a SOLUTION MANAGER malignancy. Patient did have a complete hysterectomy a number of years ago. -Transfused and hemoglobin carolyne from 8.4-11.1, but is down to 10.6 today. She does have ongoing bleeding, so might require further transfusions. 4. CODE STATUS: The patient requests a no CODE STATUS. She does not appear to have a formal POA and writing, but says her brother in [place] is her closest relative, and should act as her POA. 5. DVT prophylaxis: I will use SCDs for now. Heparin was discontinued, regarding her ongoing vaginal bleeding, at Dr. Ruth's request. 6. History of chronic and severe scoliosis and compression fractures. Pain meds as needed. sHe generally does not like the way narcotics make her feel, and says Tylenol extra strength generally controls her pain well enough. 7. Patient has history of mitral valve prolapse. She will be on perioperative antibiotics, regarding infection risk. 8. Psychiatric. The patient is quite upset by her diagnosis. She may end up needing an antidepressant, at least in the short-term. It might be worthwhile to put her on something that might improve her appetite. Medical - PN: Qual - VTE Deep Vein Thrombosis/Pulmonary Embolism Present on Admission: No
--- NOTE | 2017-03-01 14:23 | General Surgery Progress Note ---
Subjective Patient reports: feels better, still having pain, tolerating liquids well, flatus, bowel movement, diarrhea, blood in stool, afebrile Narrative: Note initiated : 03/01/17 at 2:22 pm Service Date, if different from initiated Date: [] Patient: Milady Rdz 67 y/o F admitted on 02/26/17 for Recto-Vaginal Fistula/ Severe Anemia. Chief Complaint: [Patient is generally stable she complains of recurrent leakage through her vagina but she is informed that nothing can be done about this until she has her colostomy to bypass her rectal area. She will have to be started on laxatives today so she is informed that her amount of fecal drainage is going to increase. She is informed that she is not to try to get up to bed each time that she soils her self. The nursing staff will be informed to try to keep her as clean as possible over the next 2 days. She has continued bleeding so the heparin is discontinued. She will need to be transfused tomorrow to be ready for surgery on Friday. She has no other complaints. She has been started on TPN but the rates are rather slow.] Objective Temp Pulse Resp BP Pulse Ox 97.2 F 57 L 18 138/91 100 03/01/17 12:00 03/01/17 04:00 03/01/17 12:00 03/01/17 12:00 03/01/17 12:00 - Additional Data Intake & Output - Last 24 hours: Intake & Output 02/27/17 02/28/17 03/01/17 03/02/17 05:59 05:59 05:59 05:59 Intake Total 744 / 744 1313 / 1313 3143 / 3143 1381 / 1381 Output Total 1150 / 1150 1550 / 1550 2600 / 2600 1200 / 1200 Balance -406 / -406 -237 / -237 543 / 543 181 / 181 Weight 76 lb 6.4 oz 78 lb 8 oz 82 lb 8 oz - General physical appearance cachectic, chronically ill - Eyes PERRL - ENT no congestion - Neck no masses, no venous distension - Respiratory clear to auscultation - Cardiovascular Cardiovascular exam: Present: normal rate and rhythm, RRR, +S1, +S2, systolic murmur. Absent: JVD - Abdomen soft, distended (Abdomen is distended and slightly more tense than on yesterday. She does not have tenderness.) - Integumentary no rash, no growths, no abnormal pigmentation - Neurologic normal sensation - Psychiatric oriented to time, oriented to person, oriented to place, speech is normal, memory intact - Labs 03/01/17 04:45 03/01/17 04:45 Diabetes panel 03/01/17 Range/Units 04:45 Sodium 139 (133-145) mmol/L Potassium 3.8 (3.3-5.1) mmol/L Chloride 105 (96-108) mmol/L Carbon Dioxide 23 (22-30) mmol/L BUN 15 (8-23) mg/dl Creatinine 0.8 (0.6-1.1) mg/dl Glucose 115 H (70-105) mg/dL Calcium 8.2 L (8.6-10.4) mg/dl AST 14 (0-37) U/l ALT 11 (0-40) U/l Alkaline Phosphatase 65 (39-117) U/L Total Protein 5.4 L (5.9-8.4) gm/dL Albumin 3.1 L (3.2-5.2) gm/dL Triglycerides 99 (<150) mg/dl Calcium panel 03/01/17 Range/Units 04:45 Calcium 8.2 L (8.6-10.4) mg/dl Phosphorus 3.4 (2.7-4.5) mg/dL Albumin 3.1 L (3.2-5.2) gm/dL Pituitary panel 03/01/17 Range/Units 04:45 Sodium 139 (133-145) mmol/L Potassium 3.8 (3.3-5.1) mmol/L Chloride 105 (96-108) mmol/L Carbon Dioxide 23 (22-30) mmol/L BUN 15 (8-23) mg/dl Creatinine 0.8 (0.6-1.1) mg/dl Glucose 115 H (70-105) mg/dL Calcium 8.2 L (8.6-10.4) mg/dl Adrenal panel 03/01/17 Range/Units 04:45 Sodium 139 (133-145) mmol/L Potassium 3.8 (3.3-5.1) mmol/L Chloride 105 (96-108) mmol/L Carbon Dioxide 23 (22-30) mmol/L BUN 15 (8-23) mg/dl Creatinine 0.8 (0.6-1.1) mg/dl Glucose 115 H (70-105) mg/dL Calcium 8.2 L (8.6-10.4) mg/dl Total Bilirubin 0.2 (0.0-1.0) mg/dL AST 14 (0-37) U/l ALT 11 (0-40) U/l Alkaline Phosphatase 65 (39-117) U/L Total Protein 5.4 L (5.9-8.4) gm/dL Albumin 3.1 L (3.2-5.2) gm/dL Assessment and Plan (1) Rectal malignant neoplasm Status: Acute Assessment and plan: TPN will be continued Bowel prep started today Surgery scheduled for Friday morning We will transfuse tomorrow Heparin is discontinued Current Visit: Yes (2) Recto-vaginal fistula Status: Acute Current Visit: Yes (3) Urinary tract infection Status: Acute Assessment and plan: Under treatment with antibiotics Culture results pending Current Visit: No (4) Severe anemia Status: Acute Assessment and plan: Continued to slow bleeding so patient will probably need transfusion on Friday preoperatively Current Visit: Yes (5) Kyphoscoliosis and scoliosis Status: Chronic Current Visit: Yes (6) Lumbar disc disease with radiculopathy Status: Acute Current Visit: Yes - Time Spent With Patient Total time spent is greater than 50% in coordination of care (as documented) at patient's floor/unit and/or counseling patient:
[2017-03-01] MEDS ORDERED: [UNRECOGNIZED DRUG - REMARK] IV SCH (17:00)
[2017-03-02] MEDS: 0.9 % SODIUM CHLORIDE 10 ML SYRINGE IV SCH ×4 (00:12→22:21)
[2017-03-02] MEDS: PIPERACILLIN SODIUM/TAZOBACTAM 3.375 GM in DEXTROSE 5% IN WATER 50 ML IV SCH ×4 (04:57→23:45)
[2017-03-02] MEDS: POTASSIUM CHLORIDE 10 MEQ in 0.45 % SODIUM CHLORIDE 1,000 ML IV SCH ×2 (04:57→16:28)
[2017-03-02] MEDS ORDERED: MAGNESIUM CITRATE 300 ML ORAL.SOL PO ONE ×2 (06:00→14:00)
[2017-03-02 07:50] LABS: ALT/SGPT 12 U/l (0-40); Albumin 3.3 gm/dL (3.2-5.2); Albumin/Globulin Ratio 1.8 (1.0-2.3); Alkaline Phosphatase 65 U/L (39-117); Bilirubin,Direct < 0.2 mg/dL (0.0-0.3); Blood Urea Nitrogen 19 mg/dl (8-23); Gamma Glutamyl Transpeptidase 38 U/L (5-36); Magnesium 2.6 mg/dL (1.6-2.5); Uric Acid 1.3 mg/dL (2.5-8.0)
[2017-03-02 08:43] LABS: Basophils # (Auto) 0 K/mcL (0.0-0.3); Basophils % (Auto) 0 % (0.0-2.0); Eosinophils # (Auto) 0.1 K/mcL (0.0-0.7); Eosinophils % (Auto) 3.5 % (0.0-7.0); Granulocytes % (Auto) 73.3 % (38.0-78.0); Lymphocytes # (Auto) 0.5 K/mcL (1.5-4.8); Lymphocytes % (Auto) 14.4 % (15.5-49.0); Mean Cell Volume 75.4 fL (80.0-100.0); Mean Corpuscular HGB Conc 31.3 g/dL (31.0-36.0); Mean Corpuscular Hemoglobin 23.6 pg (26.0-34.0); Monocytes # (Auto) 0.3 K/mcL (0.1-0.9); Monocytes % (Auto) 8.8 % (1.0-12.0); Platelet Count 293 K/mcL (140-440); RBC 3.94 M/mcL (4.00-5.20); Red Cell Distribution Width 22.5 % (11.5-14.5)
[2017-03-02] MEDS: FAMOTIDINE/PF 20 MG/2 ML VIAL IV SCH ×2 (08:47→21:59)
--- NOTE | 2017-03-02 15:03 | Internal Med Progress Note ---
Medical - PN: Subj Patient information: Note initiated : 03/02/17 at 2:59 pm Service Date, if different from initiated Date: [] Patient: Milady Rdz 67 y/o F admitted on 02/26/17 for Recto-Vaginal Fistula/ Severe Anemia. Chief Complaint: [] Interval history: February 26, 2017: History of present illness: Ms. Rdz is a 67 year old with a long-standing history of severe weight loss and kyphoscoliosis. She reports that she developed worsening scoliosis in her 50s with recurrent compression fractures, and thinks that she started losing weight around that time. She believes her weight has been in the 80 pound range since at least 2001. She does have a family history of colon cancer, but never agreed to screening colonoscopy, because she recalls her mother saying it was painful. Patient reports that she had a bad case of sciatica last year, and became very sedentary at that time and then developed constipation followed by rectal bleeding at that time it was thought she had bleeding hemorrhoids. That then settled down. Then about 4 weeks ago, she started to have vaginal bleeding. She thought initially it was just hemorrhoids acting up. However, she is also noticed passing gas and stool from the vaginal area. She is having occasional sweats. She thought perhaps she had a urinary tract infection, so presented to our emergency room a few days ago. She was diagnosed with UTI and given an antibiotic. She returned today, because she continues to see blood and probable stool from the vaginal area. She also notes that her perineal area seems to be getting macerated. Otherwise, she denies recent fever, but has had some occasional sweats, particularly at night. She denies headaches or dizziness, new eye or ear symptoms, sore throat or cough. She denies chest pain or palpitations. She does have mild dyspnea with exertion, for the last year or so. She denies abdominal pain, nausea or vomiting. She says her stools been fairly loose lately, and she does have some urgency to stool. She denies significant dysuria. She says she may have lost a little bit of weight over the last few years, but believes she was at 88 pounds about 15 years ago. ER evaluation included a CT scan, which confirmed a mass in the rectovaginal area, which is eroding through. Dr. Jon evaluated the patient in the emergency room, and requested admission to work on her nutritional status and correct her severe anemia, prior to considering diverting colostomy. February 27: Today, the patient says she has been having some intermittent pain around her hip areas, but then passed stool and gas, and the pain got better. She otherwise is not having much in the way of discomfort. Dr. Jon had a long conversation with her today, explaining how colostomies work and that she probably has a tumor that will need treatment with radiation and/or chemotherapy. She seems willing to go through the process of figuring out if what she has is treatable and/or curable. She is a little disappointed that she is still passing stool through the vagina. For some reason she thought the Briones catheter might relieve that. Otherwise, she denies fever chills chest pain or shortness of breath, nausea or vomiting. February 28: The patient notes that she continues to have some mild chronic back discomfort. She is also continuing to have a bloody mixed with stool discharge from her vaginal area. She is still quite distressed about the diagnosis and the upcoming surgery. She is also a little bit nervous about the bowel prep. However, otherwise she is more confident about going forward with the surgery, and understands that she needs to address her likely underlying cancer. Otherwise, she denies fever or chills, headaches or dizziness, chest pain or shortness of breath, nausea or vomiting. Briones catheter is in place. March 01: Today, the patient says she feels about the same. He still has some mild abdominal discomfort which she blames on bloating. She continues to have stool and blood pass through her vagina, although this does not seem to be of very large volume. She otherwise denies significant pain. She seems to be tolerating the TPN okay. Otherwise, she denies fever or chills, chest pain or palpitations, shortness of breath, nausea or vomiting. Briones catheter remains in place. 03/02- Pt seen in troom, on TPN, Sx in AM. Denies fever or chills. No Abd pain. - Constitutional Vitals: Vital Signs Temp Pulse Resp BP Pulse Ox 97.9 F 50 L 16 134/83 98 03/02/17 11:39 03/02/17 04:00 03/02/17 11:39 03/02/17 11:39 03/02/17 11:39 Period Temp Pulse Resp BP Sys/Shah Pulse Ox Last 24 Hr 96.6 F-98.0 F 50-55 16-20 100-152/63-86 96-100 Intake and Output 03/02/17 03/02/17 03/02/17 05:59 13:59 21:59 Intake Total 1105 / 1105 840 / 840 Output Total 1150 / 1150 300 / 300 Balance -45 / -45 540 / 540 Intake & Output: Intake & Output 03/02/17 03/02/17 03/02/17 05:59 13:59 21:59 Intake Total 1105 / 1105 840 / 840 Output Total 1150 / 1150 300 / 300 Balance -45 / -45 540 / 540 Intake: IV 1105 / 1105 Zosyn 3.375 gm In 100 / 100 Dextrose 5% in Water 50 ml @ 100 mls/hr IV Q6H [facility] Rx#:[id number] Potassium Chloride 10 Meq 1005 / 1005 In Sodium Chloride 0.45% 1,000 ml @ 60 mls/hr IV .[id number] [facility] Rx#: [id number] Oral 840 / 840 Output: Urine Catheter Amount 800 / 800 Stool 350 / 350 300 / 300 Other: Meal Lunch Percent of Meal Consumed 75% Feeding Ability Independent # Bowel Movements 0 2 # of times incontinent of 3 Bowels General appearance: no acute distress, thin Exam: emaciated Non labored breathing Non distresed. Cooperative Non focal neuro Medical - PN: Obj Da - Labs CBC & Chem 7: 03/02/17 05:19 03/02/17 05:19 Labs: Abnormal Lab Results 03/02/17 03/02/17 03/02/17 05:19 05:19 05:18 WBC 3.4 L RBC 3.94 L Hgb 9.3 L Hct 29.7 L MCV 75.4 L MCH 23.6 L RDW 22.5 H MPV 7.2 L Lymph % (Auto) 14.4 L Winn % (Auto) Lymph # (Auto) 0.5 L Carbon Dioxide Glucose 113 H Uric Acid 1.3 L Calcium 8.3 L Magnesium 2.6 H GGT 38 H Total Protein 5.1 L Albumin Globulin 1.8 L Prealbumin 14.3 L Carcinoembryonic Ag 03/01/17 03/01/17 02/28/17 04:45 04:45 06:05 WBC RBC Hgb 9.8 L Hct 30.9 L MCV 73.5 L MCH 23.2 L RDW 20.4 H MPV 7.2 L Lymph % (Auto) Winn % (Auto) Lymph # (Auto) 0.7 L Carbon Dioxide Glucose 115 H Uric Acid 1.6 L Calcium 8.2 L Magnesium GGT Total Protein 5.4 L Albumin 3.1 L Globulin Prealbumin Carcinoembryonic Ag 9.5 H 02/28/17 02/28/17 02/27/17 06:05 06:05 16:45 WBC 4.4 L RBC Hgb 10.6 L Hct 34.1 L MCV 74.7 L MCH 23.3 L RDW 21.1 H MPV 7.0 L Lymph % (Auto) 14.0 L Winn % (Auto) 13.4 H Lymph # (Auto) 0.6 L Carbon Dioxide 21 L Glucose 120 H 107 H Uric Acid 2.4 L Calcium 8.4 L 8.3 L Magnesium GGT 44 H 46 H Total Protein 5.7 L 5.4 L Albumin Globulin 2.0 L Prealbumin 15.1 L Carcinoembryonic Ag Meds: Medications Acetaminophen (Tylenol) 650 mg PO Q6HP PRN PRN Reason: PAIN/FEVER > 101 Last Admin: 02/27/17 17:36 Dose: 650 mg Hydrocodone Bitart/Acetaminophen ([place] 5/325mg) 1 tab PO Q4HP PRN PRN Reason: Pain Albuterol Sulfate (Ventolin) 2.5 mg NEB Q4HRT PRN PRN Reason: Shortness Of Breath Or Wheezing Diagnostic Test (Pha) (Accu-Chek) 1 each FS Q6 [facility] Last Admin: 03/02/17 11:47 Dose: 1 each Docusate Sodium (Colace) 100 mg PO BID PRN PRN Reason: Constipation Famotidine (Pepcid) 20 mg IV Q12 [facility] Last Admin: 03/02/17 08:47 Dose: 20 mg Piperacillin Sod/Tazobactam (Sod 3.375 gm/ Dextrose) 50 mls @ 100 mls/hr IV Q6H [facility] Last Admin: 03/02/17 12:03 Dose: 100 mls/hr Fat Emulsion Intravenous 250 (ml/ Premix) 250 mls @ 25 mls/hr IV [id number]@1600 [facility] Last Infusion: 03/01/17 04:03 Dose: Infused Potassium Chloride 10 meq/ (Sodium Chloride) 1,005 mls @ 60 mls/hr IV .[id number] [facility] Last Admin: 03/02/17 04:57 Dose: 60 mls/hr Calcium Gluconate 5 meq/Potassium Chloride 40 meq/Multivitamins/Minerals 10 ml/ Selenium 60 mcg/ Magnesium Sulfate 8.12 meq/ Sodium Phosphate 20 mmol/ Amino Acids 1,050.9193 mls @ 40 mls/hr IV Q24H [facility] Stop: 03/02/17 16:59 Last Admin: 03/01/17 16:20 Dose: 40 mls/hr Calcium Gluconate 5 meq/Potassium Chloride 40 meq/Multivitamins/Minerals 10 ml/ Selenium 60 mcg/ Sodium Phosphate 15 mmol/ Amino Acids 1,047.2526 mls @ 40 mls/ hr IV Q24H [facility] Magnesium Hydroxide (Milk Of Magnesia) 30 ml PO DAILYP PRN PRN Reason: Constipation Morphine Sulfate (Morphine) 1 mg IV Q2HP PRN PRN Reason: Pain Naloxone HCl (Narcan) 0.1 mg IV Q2MIN PRN PRN Reason: Opiate Reversal Promethazine HCl (Phenergan) 12.5 mg IV Q4-6HP PRN PRN Reason: Nausea And Vomiting Sodium Chloride (Saline Flush) 10 ml IV UD PRN PRN Reason: FLUSH Sodium Chloride (Saline Flush) 10 ml IV UD PRN PRN Reason: Flush Last Admin: 03/02/17 05:54 Dose: 10 ml Sodium Chloride (Saline Flush) 10 ml IV Q8 [facility] Last Admin: 03/02/17 06:14 Dose: 10 ml Medical - PN: A/P - Time Spent With Patient Total time spent is greater than 50% in coordination of care (as documented) at patient's floor/unit and/or counseling patient: 25 - 35 minutes - Narrative A/P Narrative: * 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 On Zosyn * Severe anemia, microcytic. Transfused Hgb 8.4->11.1,-> 10.6 * CODE STATUS: The patient requests a no CODE STATUS. Her brother in [place] is her closest relative, and should act as her POA per Pt. * Prophylaxis- SCD * History of chronic and severe scoliosis and compression fractures.- Pain meds as needed. * History of mitral valve prolapse. On perioperative antibiotics, regarding infection risk. Plan * As above * Abx * Review post op * TPN Medical - PN: Qual - VTE Deep Vein Thrombosis/Pulmonary Embolism Present on Admission: No
[2017-03-02] MEDS: [UNRECOGNIZED DRUG - REMARK] IV SCH (16:27)
[2017-03-02] MEDS ORDERED: 0.9 % SODIUM CHLORIDE 250 ML IV SCH (18:00)
--- NOTE | 2017-03-02 18:01 | General Surgery Progress Note ---
Subjective Patient reports: still having pain, pain is less, flatus, bowel movement, diarrhea, nausea, afebrile Narrative: Note initiated : 03/02/17 at 5:56 pm Service Date, if different from initiated Date: [] Patient: Milady Rdz 67 y/o F admitted on 02/26/17 for Recto-Vaginal Fistula/ Severe Anemia. Chief Complaint: [Patient is stable. She is presently undergoing a limited bowel prep. Symptomatically she is not having any worsening pain. Her hemoglobin is stable at 9.3 but she will need to be typed and crossed for tomorrow. Discussed surgery that will be done tomorrow at noon.] Objective Temp Pulse Resp BP Pulse Ox 96.7 F L 50 L 18 154/81 100 03/02/17 16:00 03/02/17 04:00 03/02/17 16:00 03/02/17 16:00 03/02/17 16:00 - Additional Data Intake & Output - Last 24 hours: Intake & Output 02/28/17 03/01/17 03/02/17 03/03/17 05:59 05:59 05:59 05:59 Intake Total 1313 / 1313 3143 / 3143 4466 / 4466 1581 / 1581 Output Total 1550 / 1550 2600 / 2600 3400 / 3400 975 / 975 Balance -237 / -237 543 / 543 1066 / 1066 606 / 606 Weight 78 lb 8 oz 82 lb 8 oz 81 lb 8 oz 81 lb 8 oz - General physical appearance moderate distress, moderate pain, chronically ill - ENT no congestion - Neck no venous distension - Respiratory normal respiratory effort, clear to auscultation - Cardiovascular Cardiovascular exam: Present: normal rate and rhythm, RRR, +S1, +S2. Absent: JVD - Abdomen soft, non tender, bowel sounds, distended (Good active bowel sounds mildly distended no tenderness) - Integumentary no rash, no growths, no abnormal pigmentation - Neurologic normal coordination, normal sensation - Psychiatric oriented to time, oriented to person, oriented to place, speech is normal, memory intact - Labs 03/02/17 05:19 03/02/17 05:19 Diabetes panel 03/02/17 Range/Units 05:19 Sodium 141 (133-145) mmol/L Potassium 3.9 (3.3-5.1) mmol/L Chloride 106 (96-108) mmol/L Carbon Dioxide 23 (22-30) mmol/L BUN 19 (8-23) mg/dl Creatinine 0.6 (0.6-1.1) mg/dl Glucose 113 H (70-105) mg/dL Calcium 8.3 L (8.6-10.4) mg/dl AST 17 (0-37) U/l ALT 12 (0-40) U/l Alkaline Phosphatase 65 (39-117) U/L Total Protein 5.1 L (5.9-8.4) gm/dL Albumin 3.3 (3.2-5.2) gm/dL Triglycerides 30 (<150) mg/dl Calcium panel 03/02/17 Range/Units 05:19 Calcium 8.3 L (8.6-10.4) mg/dl Phosphorus 3.9 (2.7-4.5) mg/dL Albumin 3.3 (3.2-5.2) gm/dL Pituitary panel 03/02/17 Range/Units 05:19 Sodium 141 (133-145) mmol/L Potassium 3.9 (3.3-5.1) mmol/L Chloride 106 (96-108) mmol/L Carbon Dioxide 23 (22-30) mmol/L BUN 19 (8-23) mg/dl Creatinine 0.6 (0.6-1.1) mg/dl Glucose 113 H (70-105) mg/dL Calcium 8.3 L (8.6-10.4) mg/dl Adrenal panel 03/02/17 Range/Units 05:19 Sodium 141 (133-145) mmol/L Potassium 3.9 (3.3-5.1) mmol/L Chloride 106 (96-108) mmol/L Carbon Dioxide 23 (22-30) mmol/L BUN 19 (8-23) mg/dl Creatinine 0.6 (0.6-1.1) mg/dl Glucose 113 H (70-105) mg/dL Calcium 8.3 L (8.6-10.4) mg/dl Total Bilirubin 0.3 (0.0-1.0) mg/dL AST 17 (0-37) U/l ALT 12 (0-40) U/l Alkaline Phosphatase 65 (39-117) U/L Total Protein 5.1 L (5.9-8.4) gm/dL Albumin 3.3 (3.2-5.2) gm/dL Assessment and Plan (1) Rectal malignant neoplasm Status: Acute Assessment and plan: TPN will be continued Scheduled for exploratory laparotomy in the morning Current Visit: Yes (2) Recto-vaginal fistula Status: Acute Current Visit: Yes (3) Urinary tract infection Status: Acute Assessment and plan: Under treatment with antibiotics Culture results pending Current Visit: No (4) Severe anemia Status: Acute Assessment and plan: Continued to slow bleeding so patient will probably need transfusion tomorrow Current Visit: Yes (5) Kyphoscoliosis and scoliosis Status: Chronic Current Visit: Yes (6) Lumbar disc disease with radiculopathy Status: Acute Current Visit: Yes - Time Spent With Patient Total time spent is greater than 50% in coordination of care (as documented) at patient's floor/unit and/or counseling patient:
[2017-03-03] MEDS: POTASSIUM CHLORIDE 10 MEQ in 0.45 % SODIUM CHLORIDE 1,000 ML IV SCH ×3 (00:58→17:47)
[2017-03-03] MEDS: PIPERACILLIN SODIUM/TAZOBACTAM 3.375 GM in DEXTROSE 5% IN WATER 50 ML IV SCH ×4 (05:07→23:43)
[2017-03-03] MEDS: 0.9 % SODIUM CHLORIDE 10 ML SYRINGE IV SCH ×3 (06:02→21:54)
[2017-03-03 06:27] LABS: ALT/SGPT 15 U/l (0-40); Albumin 3.3 gm/dL (3.2-5.2); Albumin/Globulin Ratio 1.7 (1.0-2.3); Alkaline Phosphatase 62 U/L (39-117); Bilirubin,Direct < 0.2 mg/dL (0.0-0.3); Blood Urea Nitrogen 18 mg/dl (8-23); Gamma Glutamyl Transpeptidase 36 U/L (5-36); Magnesium 2.6 mg/dL (1.6-2.5); Uric Acid 1.3 mg/dL (2.5-8.0)
[2017-03-03] MEDS: FAMOTIDINE/PF 20 MG/2 ML VIAL IV SCH ×2 (08:45→21:01)
--- NOTE | 2017-03-03 09:31 | Internal Med Progress Note ---
Medical - PN: Subj Patient information: Note initiated : 03/03/17 at 9:25 am Service Date, if different from initiated Date: [] Patient: Milady Rdz 67 y/o F admitted on 02/26/17 for Recto-Vaginal Fistula/ Severe Anemia. Chief Complaint: [] Interval history: February 26, 2017: History of present illness: Ms. Rdz is a 67 year old with a long-standing history of severe weight loss and kyphoscoliosis. She reports that she developed worsening scoliosis in her 50s with recurrent compression fractures, and thinks that she started losing weight around that time. She believes her weight has been in the 80 pound range since at least 2001. She does have a family history of colon cancer, but never agreed to screening colonoscopy, because she recalls her mother saying it was painful. Patient reports that she had a bad case of sciatica last year, and became very sedentary at that time and then developed constipation followed by rectal bleeding at that time it was thought she had bleeding hemorrhoids. That then settled down. Then about 4 weeks ago, she started to have vaginal bleeding. She thought initially it was just hemorrhoids acting up. However, she is also noticed passing gas and stool from the vaginal area. She is having occasional sweats. She thought perhaps she had a urinary tract infection, so presented to our emergency room a few days ago. She was diagnosed with UTI and given an antibiotic. She returned today, because she continues to see blood and probable stool from the vaginal area. She also notes that her perineal area seems to be getting macerated. Otherwise, she denies recent fever, but has had some occasional sweats, particularly at night. She denies headaches or dizziness, new eye or ear symptoms, sore throat or cough. She denies chest pain or palpitations. She does have mild dyspnea with exertion, for the last year or so. She denies abdominal pain, nausea or vomiting. She says her stools been fairly loose lately, and she does have some urgency to stool. She denies significant dysuria. She says she may have lost a little bit of weight over the last few years, but believes she was at 88 pounds about 15 years ago. ER evaluation included a CT scan, which confirmed a mass in the rectovaginal area, which is eroding through. Dr. Ruth evaluated the patient in the emergency room, and requested admission to work on her nutritional status and correct her severe anemia, prior to considering diverting colostomy. February 27: Today, the patient says she has been having some intermittent pain around her hip areas, but then passed stool and gas, and the pain got better. She otherwise is not having much in the way of discomfort. Dr. Ruth had a long conversation with her today, explaining how colostomies work and that she probably has a tumor that will need treatment with radiation and/or chemotherapy. She seems willing to go through the process of figuring out if what she has is treatable and/or curable. She is a little disappointed that she is still passing stool through the vagina. For some reason she thought the Briones catheter might relieve that. Otherwise, she denies fever chills chest pain or shortness of breath, nausea or vomiting. February 28: The patient notes that she continues to have some mild chronic back discomfort. She is also continuing to have a bloody mixed with stool discharge from her vaginal area. She is still quite distressed about the diagnosis and the upcoming surgery. She is also a little bit nervous about the bowel prep. However, otherwise she is more confident about going forward with the surgery, and understands that she needs to address her likely underlying cancer. Otherwise, she denies fever or chills, headaches or dizziness, chest pain or shortness of breath, nausea or vomiting. Briones catheter is in place. March 01: Today, the patient says she feels about the same. He still has some mild abdominal discomfort which she blames on bloating. She continues to have stool and blood pass through her vagina, although this does not seem to be of very large volume. She otherwise denies significant pain. She seems to be tolerating the TPN okay. Otherwise, she denies fever or chills, chest pain or palpitations, shortness of breath, nausea or vomiting. Briones catheter remains in place. 03/02- Pt seen in troom, on TPN, Sx in AM. Denies fever or chills. No Abd pain. 03/03- surgery at 11 AM today. No overnight bleeding/fever chills abdominal pain nausea vomiting. NPO per surgery. We will review postop. On TPN. No concerns expressed by nursing staff - Constitutional Vitals: Vital Signs Temp Pulse Resp BP Pulse Ox 97.2 F 45 L 16 136/73 100 03/03/17 07:41 03/03/17 04:00 03/03/17 07:41 03/03/17 07:41 03/03/17 07:41 Period Temp Pulse Resp BP Sys/Shah Pulse Ox Last 24 Hr 96.7 F-97.9 F 45-50 16-18 108-154/64-83 97-100 Intake and Output 03/02/17 03/03/17 03/03/17 21:59 05:59 13:59 Intake Total 741 / 741 50 / 50 Output Total 700 / 700 1285 / 1285 Balance 41 / 41 -1235 / -1235 Weight 81 lb 8 oz Intake & Output: Intake & Output 03/02/17 03/03/17 03/03/17 21:59 05:59 13:59 Intake Total 741 / 741 50 / 50 Output Total 700 / 700 1285 / 1285 Balance 41 / 41 -1235 / -1235 Weight 81 lb 8 oz Intake: IV 741 / 741 50 / 50 Zosyn 3.375 gm In 50 / 50 50 / 50 Dextrose 5% in Water 50 ml @ 100 mls/hr IV Q6H [facility] Rx#:[id number] Potassium Chloride 10 Meq 691 / 691 In Sodium Chloride 0.45% 1,000 ml @ 60 mls/hr IV .[id number] [facility] Rx#: [id number] Output: Urine Catheter Amount 675 / 675 1100 / 1100 Stool 25 / 25 185 / 185 Other: # Voids 1 # Bowel Movements 1 1 2 # of times incontinent of 1 Bowels General appearance: no acute distress Exam: alert oriented Significant muscle wasting thin body habitus nonlabored breathing Nondistended abdomen Medical - PN: Obj Da - Labs CBC & Chem 7: 03/02/17 05:19 03/03/17 04:31 Labs: Abnormal Lab Results 03/03/17 03/02/17 03/02/17 04:31 05:19 05:19 WBC 3.4 L RBC 3.94 L Hgb 9.3 L Hct 29.7 L MCV 75.4 L MCH 23.6 L RDW 22.5 H MPV 7.2 L Lymph % (Auto) 14.4 L Lymph # (Auto) 0.5 L Glucose 118 H 113 H Uric Acid 1.3 L 1.3 L Calcium 8.3 L Magnesium 2.6 H 2.6 H GGT 38 H Total Protein 5.2 L 5.1 L Albumin Globulin 1.9 L 1.8 L Prealbumin 03/02/17 03/01/17 03/01/17 05:18 04:45 04:45 WBC RBC Hgb 9.8 L Hct 30.9 L MCV 73.5 L MCH 23.2 L RDW 20.4 H MPV 7.2 L Lymph % (Auto) Lymph # (Auto) 0.7 L Glucose 115 H Uric Acid 1.6 L Calcium 8.2 L Magnesium GGT Total Protein 5.4 L Albumin 3.1 L Globulin Prealbumin 14.3 L Meds: Medications Acetaminophen (Tylenol) 650 mg PO Q6HP PRN PRN Reason: PAIN/FEVER > 101 Last Admin: 02/27/17 17:36 Dose: 650 mg Hydrocodone Bitart/Acetaminophen ([place] 5/325mg) 1 tab PO Q4HP PRN PRN Reason: Pain Albuterol Sulfate (Ventolin) 2.5 mg NEB Q4HRT PRN PRN Reason: Shortness Of Breath Or Wheezing Diagnostic Test (Pha) (Accu-Chek) 1 each FS Q6 [facility] Last Admin: 03/03/17 05:07 Dose: 1 each Docusate Sodium (Colace) 100 mg PO BID PRN PRN Reason: Constipation Famotidine (Pepcid) 20 mg IV Q12 [facility] Last Admin: 03/03/17 08:45 Dose: 20 mg Piperacillin Sod/Tazobactam (Sod 3.375 gm/ Dextrose) 50 mls @ 100 mls/hr IV Q6H [facility] Last Admin: 03/03/17 05:07 Dose: 100 mls/hr Fat Emulsion Intravenous 250 (ml/ Premix) 250 mls @ 25 mls/hr IV [id number]@1600 [facility] Last Infusion: 03/01/17 04:03 Dose: Infused Potassium Chloride 10 meq/ (Sodium Chloride) 1,005 mls @ 60 mls/hr IV .[id number] [facility] Last Admin: 03/03/17 00:58 Dose: Not Given Calcium Gluconate 5 meq/Potassium Chloride 40 meq/Multivitamins/Minerals 10 ml/ Selenium 60 mcg/ Sodium Phosphate 15 mmol/ Amino Acids 1,047.2832 mls @ 40 mls/ hr IV Q24H [facility] Last Admin: 03/02/17 16:27 Dose: 40 mls/hr Magnesium Hydroxide (Milk Of Magnesia) 30 ml PO DAILYP PRN PRN Reason: Constipation Morphine Sulfate (Morphine) 1 mg IV Q2HP PRN PRN Reason: Pain Naloxone HCl (Narcan) 0.1 mg IV Q2MIN PRN PRN Reason: Opiate Reversal Promethazine HCl (Phenergan) 12.5 mg IV Q4-6HP PRN PRN Reason: Nausea And Vomiting Sodium Chloride (Saline Flush) 10 ml IV UD PRN PRN Reason: FLUSH Last Admin: 03/03/17 06:02 Dose: 10 ml Sodium Chloride (Saline Flush) 10 ml IV UD PRN PRN Reason: Flush Last Admin: 03/02/17 05:54 Dose: 10 ml Sodium Chloride (Saline Flush) 10 ml IV Q8 [facility] Last Admin: 03/03/17 06:02 Dose: Not Given Medical - PN: A/P - Time Spent With Patient Total time spent is greater than 50% in coordination of care (as documented) at patient's floor/unit and/or counseling patient: 15 - 24 minutes - Narrative A/P Narrative: * Rectovaginal fistula- surgery today. * Severe PEM- continue TPN * UTI- secondary to fistula contamination. continue Zosyn * Severe anemia, microcytic. Transfused Hgb 8.4->11.1,-> 10.6 * CODE STATUS: The patient requests a no CODE STATUS. Her brother in [place] is her closest relative, and should act as her POA per Pt. * Prophylaxis- SCD * History of chronic and severe scoliosis and compression fractures.- Pain meds as needed. * History of mitral valve prolapse. Plan * review postop * continue antibiotics/TPN * diet consult for high-protein calorie supplements Medical - PN: Qual - VTE Deep Vein Thrombosis/Pulmonary Embolism Present on Admission: No
[2017-03-03] MEDS ORDERED: MIDAZOLAM 2 MG/2 ML VIAL IV ONE (14:30)
[2017-03-03] MEDS ORDERED: ONDANSETRON 4 MG/2 ML VIAL IV ONE (14:30)
[2017-03-03] MEDS ORDERED: fentaNYL 100 MCG/2 ML VIAL IV ONE (14:30)
[2017-03-03] MEDS ORDERED: ROCURONIUM 10 MG/ML ML IV ONE (14:30)
[2017-03-03] MEDS ORDERED: LIDOCAINE HCL/PF 100 MG/5 ML SYRINGE IV ONE (14:30)
[2017-03-03] MEDS ORDERED: GLYCOPYRROLATE 0.2 MG/ML VIAL IV ONE (14:30)
[2017-03-03] MEDS ORDERED: ePHEDrine 50 MG/ML AMPUL IV ONE (14:30)
[2017-03-03] MEDS ORDERED: PROPOFOL 200 MG/20 ML VIAL IV ONE (14:30)
[2017-03-03] MEDS ORDERED: SUCCINYLCHOLINE 20 MG/ML ML IV ONE (14:30)
[2017-03-03] MEDS ORDERED: NEOSTIGMINE 1 MG/ML VIAL IV ONE (14:30)
[2017-03-03] MEDS ORDERED: fentaNYL 100 MCG/2 ML VIAL IV PRN (15:44)
[2017-03-03] MEDS ORDERED: IPRATROPIUM/ALBUTEROL 3 ML AMPUL.NEB NEB PRN (15:44)
[2017-03-03] MEDS ORDERED: FLUMAZENIL 0.1 MG/ML ML IV PRN (15:44)
[2017-03-03] MEDS ORDERED: diphenhydrAMINE 50 MG/ML VIAL IV PRN (15:44)
[2017-03-03] MEDS ORDERED: ATROPINE SULFATE 0.4 MG/ML VIAL IV PRN (15:44)
[2017-03-03] MEDS ORDERED: ePHEDrine 50 MG/ML AMPUL IV PRN (15:44)
[2017-03-03] MEDS ORDERED: PROMETHAZINE 25 MG/ML VIAL IV PRN ×2 (15:44→17:32)
[2017-03-03] MEDS ORDERED: METHOCARBAMOL 1,000 MG/10 ML VIAL IV PRN (15:44)
[2017-03-03] MEDS ORDERED: BENZOCAINE/MENTHOL 1 LOZENGE PO PRN (15:44)
[2017-03-03] MEDS ORDERED: METOPROLOL TARTRATE 5 MG/5 ML VIAL IV PRN (15:44)
[2017-03-03] MEDS ORDERED: ONDANSETRON 4 MG/2 ML VIAL IV PRN (15:44)
[2017-03-03] MEDS ORDERED: NALOXONE HCL 0.4 MG/ML VIAL IV PRN ×2 (15:44→17:32)
[2017-03-03] MEDS ORDERED: LACTATED RINGERS 1,000 ML IV SCH (15:45)
--- NOTE | 2017-03-03 15:59 | Brief Operative Note ---
Date of procedure: 03/03/17 Pre-op diagnosis: rectovaginal fistula;anorectal neoplasm Post-op diagnosis: other (anorectal neoplasm and rectovaginal fistula) Procedure: examination under anesthesia with biopsy of vaginal and anal neoplasm; exploratory laparotomy with end colostomy Grafts/Implants: No Anesthesia: GETA Findings: hard neoplastic infiltrative mass involving anterior rectal wall and posterior vaginal wall ;extension to base of bladder Complications: none Surgeon: Brian Ruth Estimated blood loss (cc): 20 Specimens Removed/Pathology: other (vaginal wall biopsy;rectal wall biopsy) Condition: stable Disposition: PACU
[2017-03-03] MEDS ORDERED: ACETAMINOPHEN 1,000 MG/100 ML BOTTLE IV PRN (16:09)
[2017-03-03] MEDS ORDERED: HYDROmorphone 2 MG/ML SYRINGE IV PRN (16:09)
[2017-03-03] MEDS: HYDROmorphone 2 MG/ML SYRINGE IV PRN ×3 (16:20→21:01)
[2017-03-03] MEDS ORDERED: ACETAMINOPHEN 500 MG/50 ML BOTTLE IV PRN (17:00)
[2017-03-03] MEDS ORDERED: ACETAMINOPHEN 325 MG TABLET PO PRN (17:32)
[2017-03-03] MEDS ORDERED: DOCUSATE SODIUM 100 MG CAPSULE PO PRN (17:32)
[2017-03-03] MEDS ORDERED: ALBUTEROL SULFATE 2.5 MG/3 ML NEBULIZER NEB PRN (17:32)
[2017-03-03] MEDS ORDERED: TPN PER PHARMACY IV SCH (17:32)
[2017-03-03] MEDS ORDERED: 0.9 % SODIUM CHLORIDE 10 ML SYRINGE IV PRN ×2 (17:32)
[2017-03-03] MEDS: [UNRECOGNIZED DRUG - REMARK] IV SCH (17:54)
[2017-03-03] MEDS: FAT EMULSION 20% 250 ML in PREMIX 1 BAG IV SCH (17:58)
[2017-03-03] MEDS: HYDROcodone/APAP 5/325MG TABLET PO PRN (21:05)
[2017-03-04] MEDS: PIPERACILLIN SODIUM/TAZOBACTAM 3.375 GM in DEXTROSE 5% IN WATER 50 ML IV SCH ×4 (05:23→23:24)
[2017-03-04] MEDS: 0.9 % SODIUM CHLORIDE 10 ML SYRINGE IV SCH ×3 (05:24→23:25)
[2017-03-04 05:55] LABS: Basophils # (Auto) 0 K/mcL (0.0-0.3); Basophils % (Auto) 0 % (0.0-2.0); Eosinophils # (Auto) 0 K/mcL (0.0-0.7); Eosinophils % (Auto) 0 % (0.0-7.0); Lymphocytes # (Auto) 0.6 K/mcL (1.5-4.8); Lymphocytes % (Auto) 5.6 % (15.5-49.0); Mean Cell Volume 76.1 fL (80.0-100.0); Mean Corpuscular HGB Conc 31.8 g/dL (31.0-36.0); Mean Corpuscular Hemoglobin 24.2 pg (26.0-34.0); Monocytes # (Auto) 0.5 K/mcL (0.1-0.9); Monocytes % (Auto) 4.4 % (1.0-12.0); Platelet Count 299 K/mcL (140-440); RBC 3.84 M/mcL (4.00-5.20); Red Cell Distribution Width 22.8 % (11.5-14.5)
[2017-03-04] MEDS: HYDROmorphone 2 MG/ML SYRINGE IV PRN (07:58)
--- NOTE | 2017-03-04 09:39 | Internal Med Progress Note ---
Medical - PN: Subj Patient information: Note initiated : 03/04/17 at 9:37 am Service Date, if different from initiated Date: [] Patient: Milady Rdz 67 y/o F admitted on 02/26/17 for Recto-Vaginal Fistula/ Severe Anemia. Chief Complaint: [] Interval history: February 26, 2017: History of present illness: Ms. Rdz is a 67 year old with a long-standing history of severe weight loss and kyphoscoliosis. She reports that she developed worsening scoliosis in her 50s with recurrent compression fractures, and thinks that she started losing weight around that time. She believes her weight has been in the 80 pound range since at least 2001. She does have a family history of colon cancer, but never agreed to screening colonoscopy, because she recalls her mother saying it was painful. Patient reports that she had a bad case of sciatica last year, and became very sedentary at that time and then developed constipation followed by rectal bleeding at that time it was thought she had bleeding hemorrhoids. That then settled down. Then about 4 weeks ago, she started to have vaginal bleeding. She thought initially it was just hemorrhoids acting up. However, she is also noticed passing gas and stool from the vaginal area. She is having occasional sweats. She thought perhaps she had a urinary tract infection, so presented to our emergency room a few days ago. She was diagnosed with UTI and given an antibiotic. She returned today, because she continues to see blood and probable stool from the vaginal area. She also notes that her perineal area seems to be getting macerated. Otherwise, she denies recent fever, but has had some occasional sweats, particularly at night. She denies headaches or dizziness, new eye or ear symptoms, sore throat or cough. She denies chest pain or palpitations. She does have mild dyspnea with exertion, for the last year or so. She denies abdominal pain, nausea or vomiting. She says her stools been fairly loose lately, and she does have some urgency to stool. She denies significant dysuria. She says she may have lost a little bit of weight over the last few years, but believes she was at 88 pounds about 15 years ago. ER evaluation included a CT scan, which confirmed a mass in the rectovaginal area, which is eroding through. Dr. Ruth evaluated the patient in the emergency room, and requested admission to work on her nutritional status and correct her severe anemia, prior to considering diverting colostomy. February 27: Today, the patient says she has been having some intermittent pain around her hip areas, but then passed stool and gas, and the pain got better. She otherwise is not having much in the way of discomfort. Dr. Ruth had a long conversation with her today, explaining how colostomies work and that she probably has a tumor that will need treatment with radiation and/or chemotherapy. She seems willing to go through the process of figuring out if what she has is treatable and/or curable. She is a little disappointed that she is still passing stool through the vagina. For some reason she thought the Briones catheter might relieve that. Otherwise, she denies fever chills chest pain or shortness of breath, nausea or vomiting. February 28: The patient notes that she continues to have some mild chronic back discomfort. She is also continuing to have a bloody mixed with stool discharge from her vaginal area. She is still quite distressed about the diagnosis and the upcoming surgery. She is also a little bit nervous about the bowel prep. However, otherwise she is more confident about going forward with the surgery, and understands that she needs to address her likely underlying cancer. Otherwise, she denies fever or chills, headaches or dizziness, chest pain or shortness of breath, nausea or vomiting. Briones catheter is in place. March 01: Today, the patient says she feels about the same. He still has some mild abdominal discomfort which she blames on bloating. She continues to have stool and blood pass through her vagina, although this does not seem to be of very large volume. She otherwise denies significant pain. She seems to be tolerating the TPN okay. Otherwise, she denies fever or chills, chest pain or palpitations, shortness of breath, nausea or vomiting. Briones catheter remains in place. 03/02- Pt seen in troom, on TPN, Sx in AM. Denies fever or chills. No Abd pain. 03/03- surgery at 11 AM today. No overnight bleeding/fever chills abdominal pain nausea vomiting. NPO per surgery. We will review postop. On TPN. No concerns expressed by nursing staff 03/04- postop day 1. patient transfer to ICU post surgeryfor overnight monitoring. No significant events. On TPN . Stable hemodynamics. No fever chills or significant postoperative pain. sats 99% on 1 L oxygen. No further recommendations from hospitalist service - Constitutional Vitals: Vital Signs Temp Pulse Resp BP Pulse Ox 99.3 F H 66 16 117/69 99 03/04/17 08:00 03/04/17 04:00 03/04/17 08:00 03/04/17 08:00 03/04/17 08:00 Period Temp Pulse Resp BP Sys/Shah Pulse Ox Last 24 Hr 96.8 F-99.3 F 51-76 11-20 107-147/63-86 95-100 Intake and Output 03/03/17 03/04/17 03/04/17 21:59 05:59 13:59 Intake Total 2118 / 2118 300 / 300 50 / 50 Output Total 450 / 450 850 / 850 Balance 1668 / 1668 -550 / -550 50 / 50 Weight 80 lb 3.2 oz 79 lb 9.6 oz Intake & Output: Intake & Output 03/03/17 03/04/17 03/04/17 21:59 05:59 13:59 Intake Total 2118 / 2118 300 / 300 50 / 50 Output Total 450 / 450 850 / 850 Balance 1668 / 1668 -550 / -550 50 / 50 Weight 80 lb 3.2 oz 79 lb 9.6 oz Intake: IV 1118 / 1118 300 / 300 50 / 50 OFIRMEV 500 mg In 50 ml @ 50 / 50 200 mls/hr IV Q6HP PRN Rx#:[id number] Calcium Gluconate 5 Meq 1018 / 1018 Potassium Chloride 40 Meq Infuvite Adult 10 ml Selenium 60 Mcg Sodium Phosphate 15 Mmol In Clinimix 5%-20% Solution 1,000 ml @ 40 mls/hr IV Q24H [facility] Rx#:[id number] Zosyn 3.375 gm In 50 / 50 50 / 50 50 / 50 Dextrose 5% in Water 50 ml @ 100 mls/hr IV Q6H [facility] Rx#:[id number] IV - Manual Only 1000 / 1000 Output: Urine Catheter Amount 450 / 450 850 / 850 General appearance: no acute distress Exam: nondistressed Nonlabored breathing Severe malnourishment Postop dressing, nontender abdomen Medical - PN: Obj Da - Labs CBC & Chem 7: 03/04/17 03:49 03/03/17 04:31 Labs: Abnormal Lab Results 03/04/17 03/04/17 03/03/17 03:49 03:49 04:31 WBC 11.4 H RBC 3.84 L Hgb 9.3 L Hct 29.2 L MCV 76.1 L MCH 24.2 L RDW 22.8 H MPV Gran % 90.0 H Lymph % (Auto) 5.6 L Gran # 10.2 H Lymph # (Auto) 0.6 L Glucose 118 H Uric Acid 1.3 L Calcium Magnesium 2.6 H GGT Total Protein 5.2 L Globulin 1.9 L Prealbumin 17.8 L 03/02/17 03/02/17 03/02/17 05:19 05:19 05:18 WBC 3.4 L RBC 3.94 L Hgb 9.3 L Hct 29.7 L MCV 75.4 L MCH 23.6 L RDW 22.5 H MPV 7.2 L Gran % Lymph % (Auto) 14.4 L Gran # Lymph # (Auto) 0.5 L Glucose 113 H Uric Acid 1.3 L Calcium 8.3 L Magnesium 2.6 H GGT 38 H Total Protein 5.1 L Globulin 1.8 L Prealbumin 14.3 L Meds: Medications Acetaminophen (Tylenol) 650 mg PO Q6HP PRN PRN Reason: PAIN/FEVER > 101 Hydrocodone Bitart/Acetaminophen ([place] 5/325mg) 1 tab PO Q4HP PRN PRN Reason: Pain Last Admin: 03/03/17 21:05 Dose: 1 tab Albuterol Sulfate (Ventolin) 2.5 mg NEB Q4HRT PRN PRN Reason: Shortness Of Breath Or Wheezing Diagnostic Test (Pha) (Accu-Chek) 1 each FS Q6 [facility] Last Admin: 03/04/17 05:45 Dose: 1 each Docusate Sodium (Colace) 100 mg PO BID PRN PRN Reason: Constipation Famotidine (Pepcid) 20 mg IV Q12 [facility] Last Admin: 03/03/17 21:01 Dose: 20 mg Hydromorphone HCl (Dilaudid) 0.5 mg IV Q2HP PRN PRN Reason: Pain Last Admin: 03/04/17 07:58 Dose: 0.5 mg Acetaminophen (Ofirmev) 500 mg in 50 mls @ 200 mls/hr IV Q6HP PRN PRN Reason: Pain Last Infusion: 03/03/17 17:26 Dose: Infused Calcium Gluconate 5 meq/Potassium Chloride 40 meq/Multivitamins/Minerals 10 ml/ Selenium 60 mcg/ Sodium Phosphate 15 mmol/ Amino Acids 1,047.2526 mls @ 40 mls/ hr IV Q24H [facility] Fat Emulsion Intravenous 250 (ml/ Premix) 250 mls @ 25 mls/hr IV [id number] [facility] Piperacillin Sod/Tazobactam (Sod 3.375 gm/ Dextrose) 50 mls @ 100 mls/hr IV Q6H [facility] Last Infusion: 03/04/17 06:00 Dose: Infused Potassium Chloride 10 meq/ (Sodium Chloride) 1,005 mls @ 60 mls/hr IV .[id number] [facility] Last Admin: 03/03/17 17:47 Dose: 60 mls/hr Morphine Sulfate (Morphine) 1 mg IV Q2HP PRN PRN Reason: Pain Naloxone HCl (Narcan) 0.1 mg IV Q2MIN PRN PRN Reason: Opiate Reversal Promethazine HCl (Phenergan) 12.5 mg IV Q4-6HP PRN PRN Reason: Nausea And Vomiting Last Admin: 03/04/17 07:57 Dose: 12.5 mg Sodium Chloride (Saline Flush) 10 ml IV UD PRN PRN Reason: FLUSH Last Admin: 03/04/17 07:58 Dose: 10 ml Sodium Chloride (Saline Flush) 10 ml IV UD PRN PRN Reason: Flush Sodium Chloride (Saline Flush) 10 ml IV Q8 [facility] Last Admin: 03/04/17 05:24 Dose: 10 ml Medical - PN: A/P - Time Spent With Patient Total time spent is greater than 50% in coordination of care (as documented) at patient's floor/unit and/or counseling patient: 15 - 24 minutes - Narrative A/P Narrative: * Rectovaginal fistula- postop day 1. Managed by surgery * Severe PEM- on TPN * UTI- secondary to fistula contamination. on Zosyn * Severe anemia, microcytic. Status post PRBC transfusion. Hgb 8.4->11.1,-> 10.6 ->9.3.continue monitoring * History of chronic and severe scoliosis and compression fractures * History of mitral valve prolapse * CODE STATUS: no CODE STATUS. Her brother in [place] is her closest relative , and should act as her POA per Pt. * Prophylaxis- SCD Plan * continue postop care per surgery * continue antibiotics/TPN Medical - PN: Qual - VTE Deep Vein Thrombosis/Pulmonary Embolism Present on Admission: No
[2017-03-04] MEDS: FAMOTIDINE/PF 20 MG/2 ML VIAL IV SCH ×2 (09:50→20:32)
[2017-03-04] MEDS: POTASSIUM CHLORIDE 10 MEQ in 0.45 % SODIUM CHLORIDE 1,000 ML IV SCH (12:00)
--- NOTE | 2017-03-04 13:43 | General Surgery Progress Note ---
Subjective Patient reports: feels better, pain is less, tolerating liquids well, flatus, bowel movement, afebrile Narrative: Note initiated : 03/04/17 at 1:40 pm Service Date, if different from initiated Date: [] Patient: Milady Rdz 67 y/o F admitted on 02/26/17 for Recto-Vaginal Fistula/ Severe Anemia. Chief Complaint: [Patient is doing well on postoperative day #1. Her pain is well controlled. She does not have nausea and is tolerating liquids without difficulty. She has been out of bed and chair without difficulty. She has a small amount of bloody drainage from her rectum and vagina which is not unanticipated. She does not have any respiratory difficulty.] Objective Temp Pulse Resp BP Pulse Ox 99.2 F H 66 16 126/70 100 03/04/17 11:05 03/04/17 04:00 03/04/17 11:05 03/04/17 11:05 03/04/17 11:05 - Additional Data Intake & Output - Last 24 hours: Intake & Output 03/02/17 03/03/17 03/04/17 03/05/17 05:59 05:59 05:59 05:59 Intake Total 4466 / 4466 1731 / 1731 3473 / 3473 1444 / 1444 Output Total 3400 / 3400 2285 / 2285 1300 / 1300 Balance 1066 / 1066 -554 / -554 2173 / 2173 1444 / 1444 Weight 81 lb 8 oz 81 lb 8 oz 79 lb 9.6 oz - General physical appearance no distress, moderate pain - ENT no congestion - Neck other (Positive JVD) - Respiratory clear to auscultation - Cardiovascular Cardiovascular exam: Present: irregular rhythm, JVD, +S1, +S2. Absent: RRR - Abdomen soft, tender (Mild incisional tenderness; stoma looks good; mild distention) - Integumentary no rash, no growths, no abnormal pigmentation - Neurologic normal coordination, normal sensation - Psychiatric oriented to time, oriented to person, oriented to place, speech is normal, memory intact - Labs 03/04/17 03:49 03/03/17 04:31 Assessment and Plan (1) Rectal malignant neoplasm Status: Acute Assessment and plan: Stable postoperative day #1 Current Visit: Yes (2) Recto-vaginal fistula Status: Acute Current Visit: Yes (3) Urinary tract infection Status: Acute Assessment and plan: Under treatment with antibiotics Current Visit: No (4) Severe anemia Status: Acute Assessment and plan: Continued to slow bleeding so patient will probably need transfusion tomorrow Current Visit: Yes (5) Kyphoscoliosis and scoliosis Status: Chronic Current Visit: Yes (6) Lumbar disc disease with radiculopathy Status: Acute Current Visit: Yes - Time Spent With Patient Total time spent is greater than 50% in coordination of care (as documented) at patient's floor/unit and/or counseling patient:
[2017-03-04] MEDS ORDERED: [UNRECOGNIZED DRUG - REMARK] IV SCH (17:00)
[2017-03-04] MEDS: HYDROcodone/APAP 5/325MG TABLET PO PRN (20:32)
[2017-03-05] MEDS: PIPERACILLIN SODIUM/TAZOBACTAM 3.375 GM in DEXTROSE 5% IN WATER 50 ML IV SCH ×3 (05:25→17:39)
[2017-03-05] MEDS: 0.9 % SODIUM CHLORIDE 10 ML SYRINGE IV SCH ×3 (05:25→20:24)
[2017-03-05 06:16] LABS: ALT/SGPT 13 U/l (0-40); Albumin 2.9 gm/dL (3.2-5.2); Albumin/Globulin Ratio 1.2 (1.0-2.3); Alkaline Phosphatase 60 U/L (39-117); Bilirubin,Direct < 0.2 mg/dL (0.0-0.3); Blood Urea Nitrogen 20 mg/dl (8-23); Gamma Glutamyl Transpeptidase 28 U/L (5-36); Magnesium 1.9 mg/dL (1.6-2.5); Uric Acid 1.1 mg/dL (2.5-8.0)
[2017-03-05] MEDS: POTASSIUM CHLORIDE 10 MEQ in 0.45 % SODIUM CHLORIDE 1,000 ML IV SCH (08:00)
[2017-03-05] MEDS: FAMOTIDINE/PF 20 MG/2 ML VIAL IV SCH ×2 (08:53→20:24)
--- NOTE | 2017-03-05 09:03 | Internal Med Progress Note ---
Medical - PN: Subj Patient information: Note initiated : 03/05/17 at 9:00 am Service Date, if different from initiated Date: [] Patient: Milady Rdz 67 y/o F admitted on 02/26/17 for Recto-Vaginal Fistula/ Severe Anemia. Chief Complaint: [] Interval history: February 26, 2017: History of present illness: Ms. Rdz is a 67 year old with a long-standing history of severe weight loss and kyphoscoliosis. She reports that she developed worsening scoliosis in her 50s with recurrent compression fractures, and thinks that she started losing weight around that time. She believes her weight has been in the 80 pound range since at least 2001. She does have a family history of colon cancer, but never agreed to screening colonoscopy, because she recalls her mother saying it was painful. Patient reports that she had a bad case of sciatica last year, and became very sedentary at that time and then developed constipation followed by rectal bleeding at that time it was thought she had bleeding hemorrhoids. That then settled down. Then about 4 weeks ago, she started to have vaginal bleeding. She thought initially it was just hemorrhoids acting up. However, she is also noticed passing gas and stool from the vaginal area. She is having occasional sweats. She thought perhaps she had a urinary tract infection, so presented to our emergency room a few days ago. She was diagnosed with UTI and given an antibiotic. She returned today, because she continues to see blood and probable stool from the vaginal area. She also notes that her perineal area seems to be getting macerated. Otherwise, she denies recent fever, but has had some occasional sweats, particularly at night. She denies headaches or dizziness, new eye or ear symptoms, sore throat or cough. She denies chest pain or palpitations. She does have mild dyspnea with exertion, for the last year or so. She denies abdominal pain, nausea or vomiting. She says her stools been fairly loose lately, and she does have some urgency to stool. She denies significant dysuria. She says she may have lost a little bit of weight over the last few years, but believes she was at 88 pounds about 15 years ago. ER evaluation included a CT scan, which confirmed a mass in the rectovaginal area, which is eroding through. Dr. Ruth evaluated the patient in the emergency room, and requested admission to work on her nutritional status and correct her severe anemia, prior to considering diverting colostomy. February 27: Today, the patient says she has been having some intermittent pain around her hip areas, but then passed stool and gas, and the pain got better. She otherwise is not having much in the way of discomfort. Dr. Ruth had a long conversation with her today, explaining how colostomies work and that she probably has a tumor that will need treatment with radiation and/or chemotherapy. She seems willing to go through the process of figuring out if what she has is treatable and/or curable. She is a little disappointed that she is still passing stool through the vagina. For some reason she thought the Briones catheter might relieve that. Otherwise, she denies fever chills chest pain or shortness of breath, nausea or vomiting. February 28: The patient notes that she continues to have some mild chronic back discomfort. She is also continuing to have a bloody mixed with stool discharge from her vaginal area. She is still quite distressed about the diagnosis and the upcoming surgery. She is also a little bit nervous about the bowel prep. However, otherwise she is more confident about going forward with the surgery, and understands that she needs to address her likely underlying cancer. Otherwise, she denies fever or chills, headaches or dizziness, chest pain or shortness of breath, nausea or vomiting. Briones catheter is in place. March 01: Today, the patient says she feels about the same. He still has some mild abdominal discomfort which she blames on bloating. She continues to have stool and blood pass through her vagina, although this does not seem to be of very large volume. She otherwise denies significant pain. She seems to be tolerating the TPN okay. Otherwise, she denies fever or chills, chest pain or palpitations, shortness of breath, nausea or vomiting. Briones catheter remains in place. 03/02- Pt seen in troom, on TPN, Sx in AM. Denies fever or chills. No Abd pain. 03/03- surgery at 11 AM today. No overnight bleeding/fever chills abdominal pain nausea vomiting. NPO per surgery. We will review postop. On TPN. No concerns expressed by nursing staff 03/04- postop day 1. patient transfer to ICU post surgery for overnight monitoring. No significant events. On TPN . Stable hemodynamics. No fever chills or significant postoperative pain. sats 99% on 1 L oxygen. No further recommendations from hospitalist service March 05: patient seen examined, no acute overnight events, still has chr issues of back pain, but no acute complaints. S/p Surgery, pathology pending. On full liquid diet. remains on TPN. Plan to get her mobile and active again as soon as surgically able to. Pertinent ROS: Denies headache, dizziness Denies chest pain, palpitations Denies cough or shortness of breath Denies abdominal pain, nausea or vomiting. - Constitutional Vitals: Vital Signs Temp Pulse Resp BP Pulse Ox 97.1 F 61 18 135/74 97 03/05/17 08:00 03/04/17 16:12 03/05/17 08:00 03/05/17 08:00 03/05/17 08:00 Period Temp Pulse Resp BP Sys/Shah Pulse Ox Last 24 Hr 97.1 F-99.2 F 61 16-20 112-135/59-74 92-100 Intake and Output 03/04/17 03/05/17 03/05/17 21:59 05:59 13:59 Intake Total 1311 / 1311 968 / 968 Output Total 1150 / 1150 1220 / 1220 Balance 161 / 161 -252 / -252 Weight 84 lb 4.8 oz Intake & Output: Intake & Output 03/04/17 03/05/17 03/05/17 21:59 05:59 13:59 Intake Total 1311 / 1311 968 / 968 Output Total 1150 / 1150 1220 / 1220 Balance 161 / 161 -252 / -252 Weight 84 lb 4.8 oz Intake: IV 1311 / 1311 728 / 728 Zosyn 3.375 gm In 50 / 50 50 / 50 Dextrose 5% in Water 50 ml @ 100 mls/hr IV Q6H [facility] Rx#:[id number] Potassium Chloride 10 Meq 327 / 327 678 / 678 In Sodium Chloride 0.45% 1,000 ml @ 60 mls/hr IV .[id number] [facility] Rx#: [id number] Oral 240 / 240 Output: Urine Catheter Amount 1100 / 1100 1220 / 1220 Stool 50 / 50 Exam: Constitutional; Afebrile, cooperative, alert, not in distress. Thin lady, temporal wasting. Eyes- No icterus, , No periorbital swelling Ears- Ext ear normal, hearing normal to conversation. Neck- Midline trachea, supple Respiratory system: Air Entry equal on both sides, No crackles or wheezing, no rhonchi. Chest wall severely scoloitic. CVS- Rate rhythm regular, S1,S2 heard, no gallop, no rub. Abdomen- Soft nontender abdomen, no organomegaly, no tenderness, no guarding or rigidity, [employer]- AOOx3, moving all extremities, no gross focal deficit noted. Medical - PN: Obj Da - Labs CBC & Chem 7: 03/04/17 03:49 03/05/17 03:12 Labs: Abnormal Lab Results 03/05/17 03/04/17 03/04/17 03:12 03:49 03:49 WBC 11.4 H RBC 3.84 L Hgb 9.3 L Hct 29.2 L MCV 76.1 L MCH 24.2 L RDW 22.8 H Gran % 90.0 H Lymph % (Auto) 5.6 L Gran # 10.2 H Lymph # (Auto) 0.6 L Glucose Uric Acid 1.1 L Calcium 8.2 L Magnesium Lactate Dehydrogenase 256 H Total Protein 5.3 L Albumin 2.9 L Globulin Prealbumin 17.8 L 03/03/17 04:31 WBC RBC Hgb Hct MCV MCH RDW Gran % Lymph % (Auto) Gran # Lymph # (Auto) Glucose 118 H Uric Acid 1.3 L Calcium Magnesium 2.6 H Lactate Dehydrogenase Total Protein 5.2 L Albumin Globulin 1.9 L Prealbumin Meds: Medications Acetaminophen (Tylenol) 650 mg PO Q6HP PRN PRN Reason: PAIN/FEVER > 101 Hydrocodone Bitart/Acetaminophen ([place] 5/325mg) 1 tab PO Q4HP PRN PRN Reason: Pain Last Admin: 03/04/17 20:32 Dose: 1 tab Albuterol Sulfate (Ventolin) 2.5 mg NEB Q4HRT PRN PRN Reason: Shortness Of Breath Or Wheezing Diagnostic Test (Pha) (Accu-Chek) 1 each FS Q6 [facility] Last Admin: 03/05/17 05:32 Dose: 1 each Docusate Sodium (Colace) 100 mg PO BID PRN PRN Reason: Constipation Famotidine (Pepcid) 20 mg IV Q12 [facility] Last Admin: 03/05/17 08:53 Dose: Not Given Hydromorphone HCl (Dilaudid) 0.5 mg IV Q2HP PRN PRN Reason: Pain Last Admin: 03/04/17 07:58 Dose: 0.5 mg Acetaminophen (Ofirmev) 500 mg in 50 mls @ 200 mls/hr IV Q6HP PRN PRN Reason: Pain Last Infusion: 03/03/17 17:26 Dose: Infused Calcium Gluconate 5 meq/Potassium Chloride 40 meq/Multivitamins/Minerals 10 ml/ Selenium 60 mcg/ Sodium Phosphate 15 mmol/ Amino Acids 1,047.2526 mls @ 40 mls/ hr IV Q24H [facility] Last Admin: 03/04/17 17:15 Dose: 40 mls/hr Fat Emulsion Intravenous 250 (ml/ Premix) 250 mls @ 25 mls/hr IV [id number] [facility] Piperacillin Sod/Tazobactam (Sod 3.375 gm/ Dextrose) 50 mls @ 100 mls/hr IV Q6H [facility] Last Admin: 03/05/17 05:25 Dose: 100 mls/hr Potassium Chloride 10 meq/ (Sodium Chloride) 1,005 mls @ 60 mls/hr IV .[id number] [facility] Last Admin: 03/05/17 08:00 Dose: 60 mls/hr Morphine Sulfate (Morphine) 1 mg IV Q2HP PRN PRN Reason: Pain Naloxone HCl (Narcan) 0.1 mg IV Q2MIN PRN PRN Reason: Opiate Reversal Promethazine HCl (Phenergan) 12.5 mg IV Q4-6HP PRN PRN Reason: Nausea And Vomiting Last Admin: 03/04/17 07:57 Dose: 12.5 mg Sodium Chloride (Saline Flush) 10 ml IV UD PRN PRN Reason: FLUSH Last Admin: 03/04/17 07:58 Dose: 10 ml Sodium Chloride (Saline Flush) 10 ml IV UD PRN PRN Reason: Flush Sodium Chloride (Saline Flush) 10 ml IV Q8 [facility] Last Admin: 03/05/17 05:25 Dose: 10 ml Medical - PN: A/P - Time Spent With Patient Total time spent is greater than 50% in coordination of care (as documented) at patient's floor/unit and/or counseling patient: - Narrative A/P Narrative: A/P Rectovaginal Fistula: s/p surgery followed by Surgery UTI: On zosyn no ua availabe in chart, no cultures. will order one. Severe malnutrition: on TPN and oral diet, dietary following Severe anemia, hb stable for now. get workup, s/p trasnfusion. microcytic anemia so likely iron def. Abdominal/ rectal Mass: s/p resection, appeared to be malignant on the operative report, official report pending. No Code as per order, Brother in [facility] [place] closest relative and would be poa as per pt. leucocytosis? likely reactive, on zosyn, monitor for now. DVT scd Medical - PN: Qual - VTE Deep Vein Thrombosis/Pulmonary Embolism Present on Admission: No
[2017-03-05 12:25] LABS: Appearance,Urine CLEAR; Bacteria,Urine 0 /hpf (0); Bilirubin,Urine NEG (NEG); Color,Urine STRAW; Glucose,Urine (UA) NEGATIVE (NEG); Leukocyte Esterase,Urine NEG /uL (NEG); Mucus,Urine FEW /hpf (0); Nitrate,Urine NEG (NEG); Protein,Urine NEG (NEG); Specific Gravity,Urine 1.008 (1.000-1.035); Urine Blood 0.2 mg/dL (<0.03); Urine RBC 43 /hpf (0-1); Urine Squamous Epithelial Cell 0 /hpf (0-4); Urine WBC < 1 /hpf (0-4); Urobilinogen,Urine NEG (NEG)
--- NOTE | 2017-03-05 15:57 | General Surgery Progress Note ---
Subjective Patient reports: feels better, pain is less, bowel movement, afebrile Narrative: Note initiated : 03/05/17 at 3:55 pm Service Date, if different from initiated Date: [] Patient: Milady Rdz 67 y/o F admitted on 02/26/17 for Recto-Vaginal Fistula/ Severe Anemia. Chief Complaint: [Patient feels better. Her p.o. intake has slightly increased. She has mild abdominal distention but her colostomy is functioning well. Her pain is fairly well controlled.] Objective Temp Pulse Resp BP Pulse Ox 98.7 F 61 18 135/77 98 03/05/17 12:00 03/04/17 16:12 03/05/17 12:00 03/05/17 12:00 03/05/17 12:00 - Additional Data Intake & Output - Last 24 hours: Intake & Output 03/03/17 03/04/17 03/05/17 03/06/17 05:59 05:59 05:59 05:59 Intake Total 1731 / 1731 3473 / 3473 5028 / 5028 120 / 120 Output Total 2285 / 2285 1300 / 1300 3070 / 3070 Balance -554 / -554 2173 / 2173 1958 / 1958 120 / 120 Weight 81 lb 8 oz 79 lb 9.6 oz 84 lb 4.8 oz - General physical appearance no distress - Eyes PERRL - ENT no congestion - Neck no venous distension - Respiratory clear to auscultation - Cardiovascular Cardiovascular exam: Present: irregular rhythm, JVD, +S1, +S2 - Abdomen soft, distended (Abdomen is distended but with good active bowel sounds. Stoma in left lower quadrant is healthy and functioning. Incision looks good.) - Integumentary no rash, no growths, no abnormal pigmentation - Labs 03/04/17 03:49 03/05/17 03:12 Diabetes panel 03/05/17 Range/Units 03:12 Sodium 137 (133-145) mmol/L Potassium 4.0 (3.3-5.1) mmol/L Chloride 103 (96-108) mmol/L Carbon Dioxide 24 (22-30) mmol/L BUN 20 (8-23) mg/dl Creatinine 0.7 (0.6-1.1) mg/dl Glucose 79 (70-105) mg/dL Calcium 8.2 L (8.6-10.4) mg/dl AST 21 (0-37) U/l ALT 13 (0-40) U/l Alkaline Phosphatase 60 (39-117) U/L Total Protein 5.3 L (5.9-8.4) gm/dL Albumin 2.9 L (3.2-5.2) gm/dL Triglycerides 62 (<150) mg/dl Calcium panel 03/05/17 Range/Units 03:12 Calcium 8.2 L (8.6-10.4) mg/dl Phosphorus 3.1 (2.7-4.5) mg/dL Albumin 2.9 L (3.2-5.2) gm/dL Pituitary panel 03/05/17 Range/Units 03:12 Sodium 137 (133-145) mmol/L Potassium 4.0 (3.3-5.1) mmol/L Chloride 103 (96-108) mmol/L Carbon Dioxide 24 (22-30) mmol/L BUN 20 (8-23) mg/dl Creatinine 0.7 (0.6-1.1) mg/dl Glucose 79 (70-105) mg/dL Calcium 8.2 L (8.6-10.4) mg/dl Adrenal panel 03/05/17 Range/Units 03:12 Sodium 137 (133-145) mmol/L Potassium 4.0 (3.3-5.1) mmol/L Chloride 103 (96-108) mmol/L Carbon Dioxide 24 (22-30) mmol/L BUN 20 (8-23) mg/dl Creatinine 0.7 (0.6-1.1) mg/dl Glucose 79 (70-105) mg/dL Calcium 8.2 L (8.6-10.4) mg/dl Total Bilirubin 0.2 (0.0-1.0) mg/dL AST 21 (0-37) U/l ALT 13 (0-40) U/l Alkaline Phosphatase 60 (39-117) U/L Total Protein 5.3 L (5.9-8.4) gm/dL Albumin 2.9 L (3.2-5.2) gm/dL Assessment and Plan (1) Rectal malignant neoplasm Status: Acute Assessment and plan: Stable postoperative day #2 Current Visit: Yes (2) Recto-vaginal fistula Status: Acute Assessment and plan: Decrease bleeding per vagina and rectum Current Visit: Yes (3) Urinary tract infection Status: Acute Assessment and plan: Under treatment with antibiotics Current Visit: No (4) Severe anemia Status: Acute Assessment and plan: Continued to slow bleeding; hemoglobin is stable Current Visit: Yes (5) Kyphoscoliosis and scoliosis Status: Chronic Current Visit: Yes (6) Lumbar disc disease with radiculopathy Status: Acute Current Visit: Yes - Time Spent With Patient Total time spent is greater than 50% in coordination of care (as documented) at patient's floor/unit and/or counseling patient:
[2017-03-05] MEDS ORDERED: FAT EMULSION 20% 250 ML in PREMIX 1 BAG IV SCH (16:00)
--- NOTE | 2017-03-05 16:00 | Surgical Pathology Report ---
HISTOLOGY SPECIMEN MICROSCOPIC DIAGNOSIS SPECIMEN A - COLON, RECTAL, BIOPSY: -- INVASIVE MODERATELY DIFFERENTIATED COLORECTAL ADENOCARCINOMA, ARISING IN ASSOCIATION WITH TUBULOVILLOUS ADENOMA AND HIGH GRADE DYSPLASIA. SPECIMEN B - VAGINA, BIOPSY: -- INVASIVE MODERATELY DIFFERENTIATED COLORECTAL ADENOCARCINOMA WITH HEMORRHAGE AND NECROSIS. (ACP:djf) COMMENT: The morphologic appearance and immunohistochemical staining pattern (performed on vaginal biopsy) are consistent with invasive moderately differentiated colorectal adenocarcinoma. Clinical correlation is recommended. MICROSCOPIC DESCRIPTION The rectal biopsies have portions of keratinizing squamous mucosa associated with a proliferative tubulovillous adenoma. There are foci of invasive moderately differentiated adenocarcinoma and high grade dysplasia, along with mucosal ulceration and surface exudate. No lymph-vascular or perineural invasion is seen. The vaginal biopsies have abundant invasive adenocarcinoma with associated desmoplasia and hemorrhage. The tumor has complex architecture with cribriform glandular structures and pleomorphic malignant cells. A few portions of nonkeratinizing squamous mucosa, focally overlying invasive tumor, are also noted. No lymph-vascular or perineural invasion is seen. Immunohistochemical stains, performed on block B2 confirm CK20 and CDX2 positivity. There is no significant expression of CK7, PAX8, estrogen receptor or WT-1. All controls stained appropriately. (ACP:djf) Some of the tests reported here may not have been cleared or approved by the U.S. Food and Drug Administration (FDA). However, the FDA has determined that such clearance or approval is not necessary. Pursuant to the requirements of CLIA, this laboratory has established and verified the accuracy and precision of all tests, and additional information about these tests is available upon request. All technical controls are adequate. CLINICAL HISTORY Rectal, vaginal fistula. PROCEDURAL IMPRESSION Rectal mass, rule out carcinoma. GROSS DESCRIPTION Specimen A: Received in formalin labeled rectal biopsies, are multiple pardo-miramontes tissue fragments from less than 0.1 to 0.8 cm. Also in the container is a purple-miramontes polypoid tissue fragment. It is 2.4 x 1.3 x 0.8 cm. The possible margin is inked black. The largest is sectioned and everything is entirely submitted in three cassettes. Specimen B: Received in formalin labeled vaginal biopsies, are multiple red-brown clot-like and miramontes tissue fragments from less than 0.1 to 1.5 cm. The largest are sectioned and everything is entirely submitted in three cassettes. (SCB:adj) Electronically Signed by: Giovanny Argueta M.D.
[2017-03-05] MEDS ORDERED: TPN PER PHARMACY IV SCH (16:29)
[2017-03-05] MEDS ORDERED: ACETAMINOPHEN 325 MG TABLET PO PRN (16:29)
[2017-03-05] MEDS ORDERED: HYDROmorphone 2 MG/ML SYRINGE IV PRN (16:29)
[2017-03-05] MEDS ORDERED: HYDROcodone/APAP 5/325MG TABLET PO PRN (16:29)
[2017-03-05] MEDS ORDERED: DOCUSATE SODIUM 100 MG CAPSULE PO PRN (16:29)
[2017-03-05] MEDS ORDERED: 0.9 % SODIUM CHLORIDE 10 ML SYRINGE IV PRN (16:29)
[2017-03-05] MEDS ORDERED: NALOXONE HCL 0.4 MG/ML VIAL IV PRN (16:29)
[2017-03-05] MEDS ORDERED: PROMETHAZINE 25 MG/ML VIAL IV PRN (16:29)
[2017-03-05] MEDS ORDERED: ALBUTEROL SULFATE 2.5 MG/3 ML NEBULIZER NEB PRN (16:29)
[2017-03-05] MEDS ORDERED: ACETAMINOPHEN 500 MG/50 ML BOTTLE IV PRN (16:29)
[2017-03-05] MEDS: METOCLOPRAMIDE 10 MG/2 ML VIAL IV SCH (17:40)
[2017-03-05] MEDS ORDERED: [UNRECOGNIZED DRUG - REMARK] IV SCH (18:00)
[2017-03-05] MEDS ORDERED: METOCLOPRAMIDE 10 MG/2 ML VIAL IV SCH (18:00)
[2017-03-06] MEDS: PIPERACILLIN SODIUM/TAZOBACTAM 3.375 GM in DEXTROSE 5% IN WATER 50 ML IV SCH ×4 (00:04→23:56)
[2017-03-06] MEDS: METOCLOPRAMIDE 10 MG/2 ML VIAL IV SCH ×5 (00:05→23:31)
[2017-03-06] MEDS: 0.9 % SODIUM CHLORIDE 10 ML SYRINGE IV SCH ×3 (05:31→21:30)
[2017-03-06 06:47] LABS: ALT/SGPT 10 U/l (0-40); Albumin 2.9 gm/dL (3.2-5.2); Albumin/Globulin Ratio 1.2 (1.0-2.3); Alkaline Phosphatase 56 U/L (39-117); Bilirubin,Direct < 0.2 mg/dL (0.0-0.3); Blood Urea Nitrogen 23 mg/dl (8-23); Gamma Glutamyl Transpeptidase 28 U/L (5-36); Magnesium 1.7 mg/dL (1.6-2.5); Uric Acid 0.8 mg/dL (2.5-8.0)
[2017-03-06 09:23] LABS: Basophils # (Auto) 0 K/mcL (0.0-0.3); Basophils % (Auto) 0 % (0.0-2.0); Eosinophils # (Auto) 0.1 K/mcL (0.0-0.7); Eosinophils % (Auto) 2.2 % (0.0-7.0); Granulocytes % (Auto) 81.4 % (38.0-78.0); Lymphocytes # (Auto) 0.4 K/mcL (1.5-4.8); Lymphocytes % (Auto) 6.9 % (15.5-49.0); Mean Cell Volume 75.3 fL (80.0-100.0); Mean Corpuscular HGB Conc 31.3 g/dL (31.0-36.0); Mean Corpuscular Hemoglobin 23.5 pg (26.0-34.0); Monocytes # (Auto) 0.5 K/mcL (0.1-0.9); Monocytes % (Auto) 9.5 % (1.0-12.0); Platelet Count 276 K/mcL (140-440); RBC 4.02 M/mcL (4.00-5.20); Red Cell Distribution Width 23.7 % (11.5-14.5)
[2017-03-06] MEDS: FAMOTIDINE/PF 20 MG/2 ML VIAL IV SCH ×2 (10:19→21:29)
--- NOTE | 2017-03-06 11:47 | General Surgery Progress Note ---
Subjective Patient reports: feels better, pain is less, tolerating liquids well, flatus, bowel movement, diarrhea, fever Narrative: Note initiated : 03/06/17 at 11:45 am Service Date, if different from initiated Date: [] Patient: Milady Rdz 67 y/o F admitted on 02/26/17 for Recto-Vaginal Fistula/ Severe Anemia. Chief Complaint: [Patient is stable though she looks more depressed today. She states that she is tired of being sick and in the hospital. She was informed of her diagnosis of adenocarcinoma of the rectum as a primary. She is also informed that she will be a candidate for chemoradiation once she is recovered from her operation. She will need senior living care while she is receiving chemotherapy. She denies chest pain or shortness of breath. Urine output has been good. Her stoma is functioning adequately. Objective Temp Pulse Resp BP Pulse Ox 99.6 F H 81 18 95/71 97 03/06/17 08:00 03/06/17 04:00 03/06/17 08:00 03/06/17 08:00 03/06/17 08:00 - Additional Data Intake & Output - Last 24 hours: Intake & Output 03/04/17 03/05/17 03/06/17 03/07/17 05:59 05:59 05:59 05:59 Intake Total 3473 / 3473 5028 / 5028 710 / 710 230 / 230 Output Total 1300 / 1300 3070 / 3070 2750 / 2750 Balance 2173 / 2173 1958 / 195 -0 / -2039 230 / 230 Weight 79 lb 9.6 oz 84 lb 4.8 oz 80 lb 6.4 oz - General physical appearance moderate distress, moderate pain - Respiratory normal respiratory effort, clear to auscultation - Cardiovascular Cardiovascular exam: Present: irregular rhythm, JVD, +S1, +S2, systolic murmur. Absent: RRR - Abdomen soft, tender, distended (Abdomen is distended but soft; her incision looks good ; stoma is working appropriately) - Integumentary no rash, no growths, no abnormal pigmentation - Psychiatric oriented to time, oriented to person, oriented to place, speech is normal, memory intact - Labs 03/06/17 08:34 03/06/17 04:00 Diabetes panel 03/06/17 Range/Units 04:00 Sodium 134 (133-145) mmol/L Potassium 3.7 (3.3-5.1) mmol/L Chloride 99 (96-108) mmol/L Carbon Dioxide 23 (22-30) mmol/L BUN 23 (8-23) mg/dl Creatinine 0.6 (0.6-1.1) mg/dl Glucose 102 (70-105) mg/dL Calcium 8.2 L (8.6-10.4) mg/dl AST 18 (0-37) U/l ALT 10 (0-40) U/l Alkaline Phosphatase 56 (39-117) U/L Total Protein 5.4 L (5.9-8.4) gm/dL Albumin 2.9 L (3.2-5.2) gm/dL Triglycerides 92 (<150) mg/dl Calcium panel 03/06/17 Range/Units 04:00 Calcium 8.2 L (8.6-10.4) mg/dl Phosphorus 3.1 (2.7-4.5) mg/dL Albumin 2.9 L (3.2-5.2) gm/dL Pituitary panel 03/06/17 Range/Units 04:00 Sodium 134 (133-145) mmol/L Potassium 3.7 (3.3-5.1) mmol/L Chloride 99 (96-108) mmol/L Carbon Dioxide 23 (22-30) mmol/L BUN 23 (8-23) mg/dl Creatinine 0.6 (0.6-1.1) mg/dl Glucose 102 (70-105) mg/dL Calcium 8.2 L (8.6-10.4) mg/dl Adrenal panel 03/06/17 Range/Units 04:00 Sodium 134 (133-145) mmol/L Potassium 3.7 (3.3-5.1) mmol/L Chloride 99 (96-108) mmol/L Carbon Dioxide 23 (22-30) mmol/L BUN 23 (8-23) mg/dl Creatinine 0.6 (0.6-1.1) mg/dl Glucose 102 (70-105) mg/dL Calcium 8.2 L (8.6-10.4) mg/dl Total Bilirubin 0.2 (0.0-1.0) mg/dL AST 18 (0-37) U/l ALT 10 (0-40) U/l Alkaline Phosphatase 56 (39-117) U/L Total Protein 5.4 L (5.9-8.4) gm/dL Albumin 2.9 L (3.2-5.2) gm/dL Assessment and Plan (1) Rectal malignant neoplasm Status: Acute Assessment and plan: Stable postoperative day #3 Current Visit: Yes (2) Recto-vaginal fistula Status: Acute Assessment and plan: Decrease bleeding per vagina and rectum 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
[2017-03-06] MEDS: [UNRECOGNIZED DRUG - REMARK] IV SCH (11:56)
[2017-03-06] MEDS: 0.9 % SODIUM CHLORIDE 10 ML SYRINGE IV PRN (12:41)
--- NOTE | 2017-03-06 12:41 | Internal Med Progress Note ---
Medical - PN: Subj Patient information: Note initiated : 03/06/17 at 12:37 pm Service Date, if different from initiated Date: [] Patient: Milady Rdz 67 y/o F admitted on 02/26/17 for Recto-Vaginal Fistula/ Severe Anemia. Chief Complaint: [] Interval history: February 26, 2017: History of present illness: Ms. Rdz is a 67 year old with a long-standing history of severe weight loss and kyphoscoliosis. She reports that she developed worsening scoliosis in her 50s with recurrent compression fractures, and thinks that she started losing weight around that time. She believes her weight has been in the 80 pound range since at least 2001. She does have a family history of colon cancer, but never agreed to screening colonoscopy, because she recalls her mother saying it was painful. Patient reports that she had a bad case of sciatica last year, and became very sedentary at that time and then developed constipation followed by rectal bleeding at that time it was thought she had bleeding hemorrhoids. That then settled down. Then about 4 weeks ago, she started to have vaginal bleeding. She thought initially it was just hemorrhoids acting up. However, she is also noticed passing gas and stool from the vaginal area. She is having occasional sweats. She thought perhaps she had a urinary tract infection, so presented to our emergency room a few days ago. She was diagnosed with UTI and given an antibiotic. She returned today, because she continues to see blood and probable stool from the vaginal area. She also notes that her perineal area seems to be getting macerated. Otherwise, she denies recent fever, but has had some occasional sweats, particularly at night. She denies headaches or dizziness, new eye or ear symptoms, sore throat or cough. She denies chest pain or palpitations. She does have mild dyspnea with exertion, for the last year or so. She denies abdominal pain, nausea or vomiting. She says her stools been fairly loose lately, and she does have some urgency to stool. She denies significant dysuria. She says she may have lost a little bit of weight over the last few years, but believes she was at 88 pounds about 15 years ago. ER evaluation included a CT scan, which confirmed a mass in the rectovaginal area, which is eroding through. Dr. Ruth evaluated the patient in the emergency room, and requested admission to work on her nutritional status and correct her severe anemia, prior to considering diverting colostomy. February 27: Today, the patient says she has been having some intermittent pain around her hip areas, but then passed stool and gas, and the pain got better. She otherwise is not having much in the way of discomfort. Dr. Ruth had a long conversation with her today, explaining how colostomies work and that she probably has a tumor that will need treatment with radiation and/or chemotherapy. She seems willing to go through the process of figuring out if what she has is treatable and/or curable. She is a little disappointed that she is still passing stool through the vagina. For some reason she thought the Briones catheter might relieve that. Otherwise, she denies fever chills chest pain or shortness of breath, nausea or vomiting. February 28: The patient notes that she continues to have some mild chronic back discomfort. She is also continuing to have a bloody mixed with stool discharge from her vaginal area. She is still quite distressed about the diagnosis and the upcoming surgery. She is also a little bit nervous about the bowel prep. However, otherwise she is more confident about going forward with the surgery, and understands that she needs to address her likely underlying cancer. Otherwise, she denies fever or chills, headaches or dizziness, chest pain or shortness of breath, nausea or vomiting. Briones catheter is in place. March 01: Today, the patient says she feels about the same. He still has some mild abdominal discomfort which she blames on bloating. She continues to have stool and blood pass through her vagina, although this does not seem to be of very large volume. She otherwise denies significant pain. She seems to be tolerating the TPN okay. Otherwise, she denies fever or chills, chest pain or palpitations, shortness of breath, nausea or vomiting. Briones catheter remains in place. 03/02- Pt seen in troom, on TPN, Sx in AM. Denies fever or chills. No Abd pain. 03/03- surgery at 11 AM today. No overnight bleeding/fever chills abdominal pain nausea vomiting. NPO per surgery. We will review postop. On TPN. No concerns expressed by nursing staff 03/04- postop day 1. patient transfer to ICU post surgery for overnight monitoring. No significant events. On TPN . Stable hemodynamics. No fever chills or significant postoperative pain. sats 99% on 1 L oxygen. No further recommendations from hospitalist service March 05: patient seen examined, no acute overnight events, still has chr issues of back pain, but no acute complaints. S/p Surgery, pathology pending. On full liquid diet. remains on TPN. Plan to get her mobile and active again as soon as surgically able to. March 06: pt seen examined, no acute overnight issues low grade temp noted this AM, but wbc count is normal. Pt on liquid diet tolerating it well, On TPN. 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 Overall plan to D/c to sNF when able for rehab and oncology follow up on discharge. Surgery consult appreciated. will await surgery clearance before discharge planning. Pertinent ROS: Denies headache, dizziness Denies chest pain, palpitations Denies cough or shortness of breath abdominal sorness present, no nausea and or vomiting. - Constitutional Vitals: Vital Signs Temp Pulse Resp BP Pulse Ox 99.3 F H 83 20 118/81 97 03/06/17 12:00 03/06/17 12:00 03/06/17 12:00 03/06/17 12:00 03/06/17 12:00 Period Temp Pulse Resp BP Sys/Shah Pulse Ox Last 24 Hr 97.8 F-99.8 F 81-100 16-20 95-129/70-84 94-98 Intake and Output 03/05/17 03/06/17 03/06/17 21:59 05:59 13:59 Intake Total 340 / 340 250 / 250 470 / 470 Output Total 1400 / 1400 1350 / 1350 Balance -1060 / -1060 -1100 / -1100 470 / 470 Weight 80 lb 6.4 oz 80 lb 6.4 oz Patient Weight 03/07/17 05:59 Weight 80 lb 6.4 oz Intake & Output: Intake & Output 03/05/17 03/06/17 03/06/17 21:59 05:59 13:59 Intake Total 340 / 340 250 / 250 470 / 470 Output Total 1400 / 1400 1350 / 1350 Balance -1060 / -1060 -1100 / -1100 470 / 470 Weight 80 lb 6.4 oz 80 lb 6.4 oz Intake: IV 100 / 100 50 / 50 50 / 50 Zosyn 3.375 gm In 100 / 100 50 / 50 50 / 50 Dextrose 5% in Water 50 ml @ 100 mls/hr IV Q6H [facility] Rx#:[id number] Oral 240 / 240 200 / 200 420 / 420 Output: Urine Catheter Amount 1300 / 1300 1350 / 1350 Stool 100 / 100 Other: Meal Dinner Breakfast Percent of Meal Consumed 100% 50% Feeding Ability Assist with Tray Set Up Exam: Constitutional; Afebrile, cooperative, alert, not in distress. Eyes- No icterus, , No periorbital swelling Ears- Ext ear normal, hearing normal to conversation. Neck- Midline trachea, supple Respiratory system: Air Entry equal on both sides, No crackles or wheezing, no rhonchi. severe scoliosis. CVS- Rate rhythm regular, S1,S2 heard, no gallop, no rub. Abdomen- jamison in place, colonstopy in place. [employer]- AOOx3, moving all extremities, no gross focal deficit noted. Medical - PN: Obj Da - Labs CBC & Chem 7: 03/06/17 08:34 03/06/17 04:00 Labs: Abnormal Lab Results 03/06/17 03/06/17 03/05/17 08:34 04:00 11:42 WBC RBC Hgb 9.5 L Hct 30.3 L MCV 75.3 L MCH 23.5 L RDW 23.7 H Gran % 81.4 H Lymph % (Auto) 6.9 L Gran # Lymph # (Auto) 0.4 L Uric Acid 0.8 L Calcium 8.2 L Lactate Dehydrogenase Total Protein 5.4 L Albumin 2.9 L Prealbumin Urine Occult Blood 0.2 A Urine RBC 43 H 03/05/17 03/04/17 03/04/17 03:12 03:49 03:49 WBC 11.4 H RBC 3.84 L Hgb 9.3 L Hct 29.2 L MCV 76.1 L MCH 24.2 L RDW 22.8 H Gran % 90.0 H Lymph % (Auto) 5.6 L Gran # 10.2 H Lymph # (Auto) 0.6 L Uric Acid 1.1 L Calcium 8.2 L Lactate Dehydrogenase 256 H Total Protein 5.3 L Albumin 2.9 L Prealbumin 17.8 L Urine Occult Blood Urine RBC Meds: Medications Acetaminophen (Tylenol) 650 mg PO Q6HP PRN PRN Reason: PAIN/FEVER > 101 Hydrocodone Bitart/Acetaminophen ([place] 5/325mg) 1 tab PO Q4HP PRN PRN Reason: Pain Albuterol Sulfate (Ventolin) 2.5 mg NEB Q4HRT PRN PRN Reason: Shortness Of Breath Or Wheezing Diagnostic Test (Pha) (Accu-Chek) 1 each FS Q6 [facility] Last Admin: 03/06/17 12:10 Dose: 1 each Docusate Sodium (Colace) 100 mg PO BID PRN PRN Reason: Constipation Famotidine (Pepcid) 20 mg IV Q12 [facility] Last Admin: 03/06/17 10:19 Dose: Not Given Heparin Sodium (Porcine) (Heparin) 5,000 unit SQ Q12 [facility] Hydromorphone HCl (Dilaudid) 0.5 mg IV Q2HP PRN PRN Reason: Pain Last Admin: 03/06/17 00:27 Dose: 0.5 mg Acetaminophen (Ofirmev) 500 mg in 50 mls @ 200 mls/hr IV Q6HP PRN PRN Reason: Pain Fat Emulsion Intravenous 250 (ml/ Premix) 250 mls @ 25 mls/hr IV [id number] [facility] Piperacillin Sod/Tazobactam (Sod 3.375 gm/ Dextrose) 50 mls @ 100 mls/hr IV Q6H [facility] Last Admin: 03/06/17 11:55 Dose: 100 mls/hr Calcium Gluconate 5 meq/Potassium Chloride 40 meq/Multivitamins/Minerals 10 ml/ Selenium 60 mcg/ Sodium Phosphate 15 mmol/ Magnesium Sulfate 8.12 meq/ Sodium Chloride 30 meq/ Amino Acids 1,056.7526 mls @ 60 mls/hr IV Q18H [facility] Last Admin: 03/06/17 11:56 Dose: 60 mls/hr Metoclopramide HCl (Reglan) 10 mg IV Q6 [facility] Last Admin: 03/06/17 11:56 Dose: 10 mg Morphine Sulfate (Morphine) 1 mg IV Q2HP PRN PRN Reason: Pain Naloxone HCl (Narcan) 0.1 mg IV Q2MIN PRN PRN Reason: Opiate Reversal Promethazine HCl (Phenergan) 12.5 mg IV Q4-6HP PRN PRN Reason: Nausea And Vomiting Sodium Chloride (Saline Flush) 10 ml IV UD PRN PRN Reason: FLUSH Sodium Chloride (Saline Flush) 10 ml IV UD PRN PRN Reason: Flush Sodium Chloride (Saline Flush) 10 ml IV Q8 [facility] Last Admin: 03/06/17 05:31 Dose: 10 ml Medical - PN: A/P - Time Spent With Patient Total time spent is greater than 50% in coordination of care (as documented) at patient's floor/unit and/or counseling patient: - Narrative A/P Narrative: A/P Rectovaginal Fistula: s/p surgery followed by Surgery. s/p colostomy UTI: On zosyn no ua availabe in chart, no cultures. urine cx neg so far, d/c zosyn s/p 8-9 days of abx Severe malnutrition: on TPN and oral diet, dietary following. advance diet as tolerated and allowed by surgery. Severe anemia, hb stable for now 9.5 today, hold off on wkup, on tpn s/p transfusion. s/p transfusion. microcytic anemia so likely iron def. chr bleed due to mass. Abdominal/ rectal Mass: s/p resection, appeared to be malignant on the operative report, official report suggests adenocarcinoma. plan for chemo radiation as per surgery as outpatient. No Code as per order, Brother in [facility] [place] closest relative and would be poa as per pt. leucocytosis? likely reactive, resolved today DVT hep sq, scd Medical - PN: Qual - VTE Deep Vein Thrombosis/Pulmonary Embolism Present on Admission: No
[2017-03-06] MEDS: HEPARIN 5,000 UNIT/ML VIAL SQ SCH ×2 (15:23→21:29)
[2017-03-06] MEDS ORDERED: PIPERACILLIN SODIUM/TAZOBACTAM 3.375 GM VIAL IV ONE (23:43)
[2017-03-06] MEDS ORDERED: metroNIDAZOLE 500 MG/100 ML BAG IV ONE (23:43)
[2017-03-06] MEDS: metroNIDAZOLE 500 MG/100 ML BAG IV SCH (23:51)
[2017-03-07] MEDS: [UNRECOGNIZED DRUG - REMARK] IV SCH (05:18)
[2017-03-07] MEDS ORDERED: metroNIDAZOLE 500 MG/100 ML BAG IV ONE (05:32)
[2017-03-07] MEDS: METOCLOPRAMIDE 10 MG/2 ML VIAL IV SCH ×3 (05:57→17:45)
[2017-03-07] MEDS: PIPERACILLIN SODIUM/TAZOBACTAM 3.375 GM in DEXTROSE 5% IN WATER 50 ML IV SCH ×3 (05:58→18:06)
[2017-03-07] MEDS: metroNIDAZOLE 500 MG/100 ML BAG IV SCH ×3 (05:58→19:27)
[2017-03-07] MEDS: 0.9 % SODIUM CHLORIDE 10 ML SYRINGE IV SCH ×3 (06:06→21:02)
[2017-03-07] MEDS: 0.9 % SODIUM CHLORIDE 10 ML SYRINGE IV PRN ×2 (06:07→19:27)
[2017-03-07 06:50] LABS: ALT/SGPT 13 U/l (0-40); Albumin/Globulin Ratio 1.2 (1.0-2.3); Alkaline Phosphatase 54 U/L (39-117); Bilirubin,Direct < 0.2 mg/dL (0.0-0.3); Blood Urea Nitrogen 24 mg/dl (8-23); Gamma Glutamyl Transpeptidase 28 U/L (5-36); Uric Acid 0.9 mg/dL (2.5-8.0)
[2017-03-07 06:57] LABS: Basophils # (Auto) 0 K/mcL (0.0-0.3); Basophils % (Auto) 0.6 % (0.0-2.0); Eosinophils # (Auto) 0.2 K/mcL (0.0-0.7); Eosinophils % (Auto) 3.9 % (0.0-7.0); Granulocytes % (Auto) 65.3 % (38.0-78.0); Lymphocytes # (Auto) 0.6 K/mcL (1.5-4.8); Lymphocytes % (Auto) 13.7 % (15.5-49.0); Mean Cell Volume 74.8 fL (80.0-100.0); Mean Corpuscular HGB Conc 31.6 g/dL (31.0-36.0); Mean Corpuscular Hemoglobin 23.7 pg (26.0-34.0); Monocytes # (Auto) 0.7 K/mcL (0.1-0.9); Monocytes % (Auto) 16.5 % (1.0-12.0); Platelet Count 253 K/mcL (140-440); RBC 3.84 M/mcL (4.00-5.20); Red Cell Distribution Width 24.1 % (11.5-14.5)
[2017-03-07] MEDS: FAMOTIDINE/PF 20 MG/2 ML VIAL IV SCH ×2 (09:11→21:02)
[2017-03-07] MEDS: HEPARIN 5,000 UNIT/ML VIAL SQ SCH ×2 (09:11→21:02)
--- NOTE | 2017-03-07 14:40 | Internal Med Progress Note ---
Medical - PN: Subj Patient information: Note initiated : 03/07/17 at 2:37 pm Service Date, if different from initiated Date: [] Patient: Milady Rdz 67 y/o F admitted on 02/26/17 for Recto-Vaginal Fistula/ Severe Anemia. Chief Complaint: [] Interval history: February 26, 2017: History of present illness: Ms. Rdz is a 67 year old with a long-standing history of severe weight loss and kyphoscoliosis. She reports that she developed worsening scoliosis in her 50s with recurrent compression fractures, and thinks that she started losing weight around that time. She believes her weight has been in the 80 pound range since at least 2001. She does have a family history of colon cancer, but never agreed to screening colonoscopy, because she recalls her mother saying it was painful. Patient reports that she had a bad case of sciatica last year, and became very sedentary at that time and then developed constipation followed by rectal bleeding at that time it was thought she had bleeding hemorrhoids. That then settled down. Then about 4 weeks ago, she started to have vaginal bleeding. She thought initially it was just hemorrhoids acting up. However, she is also noticed passing gas and stool from the vaginal area. She is having occasional sweats. She thought perhaps she had a urinary tract infection, so presented to our emergency room a few days ago. She was diagnosed with UTI and given an antibiotic. She returned today, because she continues to see blood and probable stool from the vaginal area. She also notes that her perineal area seems to be getting macerated. Otherwise, she denies recent fever, but has had some occasional sweats, particularly at night. She denies headaches or dizziness, new eye or ear symptoms, sore throat or cough. She denies chest pain or palpitations. She does have mild dyspnea with exertion, for the last year or so. She denies abdominal pain, nausea or vomiting. She says her stools been fairly loose lately, and she does have some urgency to stool. She denies significant dysuria. She says she may have lost a little bit of weight over the last few years, but believes she was at 88 pounds about 15 years ago. ER evaluation included a CT scan, which confirmed a mass in the rectovaginal area, which is eroding through. Dr. Ruth evaluated the patient in the emergency room, and requested admission to work on her nutritional status and correct her severe anemia, prior to considering diverting colostomy. February 27: Today, the patient says she has been having some intermittent pain around her hip areas, but then passed stool and gas, and the pain got better. She otherwise is not having much in the way of discomfort. Dr. Ruth had a long conversation with her today, explaining how colostomies work and that she probably has a tumor that will need treatment with radiation and/or chemotherapy. She seems willing to go through the process of figuring out if what she has is treatable and/or curable. She is a little disappointed that she is still passing stool through the vagina. For some reason she thought the Briones catheter might relieve that. Otherwise, she denies fever chills chest pain or shortness of breath, nausea or vomiting. February 28: The patient notes that she continues to have some mild chronic back discomfort. She is also continuing to have a bloody mixed with stool discharge from her vaginal area. She is still quite distressed about the diagnosis and the upcoming surgery. She is also a little bit nervous about the bowel prep. However, otherwise she is more confident about going forward with the surgery, and understands that she needs to address her likely underlying cancer. Otherwise, she denies fever or chills, headaches or dizziness, chest pain or shortness of breath, nausea or vomiting. Briones catheter is in place. March 01: Today, the patient says she feels about the same. He still has some mild abdominal discomfort which she blames on bloating. She continues to have stool and blood pass through her vagina, although this does not seem to be of very large volume. She otherwise denies significant pain. She seems to be tolerating the TPN okay. Otherwise, she denies fever or chills, chest pain or palpitations, shortness of breath, nausea or vomiting. Briones catheter remains in place. 03/02- Pt seen in troom, on TPN, Sx in AM. Denies fever or chills. No Abd pain. 03/03- surgery at 11 AM today. No overnight bleeding/fever chills abdominal pain nausea vomiting. NPO per surgery. We will review postop. On TPN. No concerns expressed by nursing staff 03/04- postop day 1. patient transfer to ICU post surgery for overnight monitoring. No significant events. On TPN . Stable hemodynamics. No fever chills or significant postoperative pain. sats 99% on 1 L oxygen. No further recommendations from hospitalist service March 05: patient seen examined, no acute overnight events, still has chr issues of back pain, but no acute complaints. S/p Surgery, pathology pending. On full liquid diet. remains on TPN. Plan to get her mobile and active again as soon as surgically able to. March 06: pt seen examined, no acute overnight issues low grade temp noted this AM, but wbc count is normal. Pt on liquid diet tolerating it well, On TPN. 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 Overall plan to D/c to sNF when able for rehab and oncology follow up on discharge. Surgery consult appreciated. will await surgery clearance before discharge planning. March 07: Pt seen examined, no acute overnight events, patient ambulating well with help of walker and PT, still remains of TPN and liquid diet as per surgery. Labs stable. Plan for outpatient oncology and radiation therapy as per surgery. Pertinent ROS: Denies headache, dizziness Denies chest pain, palpitations Denies cough or shortness of breath Denies abdominal pain, nausea or vomiting. Soreness from sx - Constitutional Vitals: Vital Signs Temp Pulse Resp BP Pulse Ox 98.2 F 78 16 119/79 94 03/07/17 11:26 03/07/17 04:00 03/07/17 11:26 03/07/17 11:26 03/07/17 11:26 Period Temp Pulse Resp BP Sys/Shah Pulse Ox Last 24 Hr 97.2 F-98.8 F 74-88 16-20 111-132/56-86 91-98 Intake and Output 03/07/17 03/07/17 03/07/17 05:59 13:59 21:59 Intake Total 1442 / 1442 390 / 390 Output Total 1625 / 1625 250 / 250 Balance -183 / -183 140 / 140 Intake & Output: Intake & Output 03/07/17 03/07/17 03/07/17 05:59 13:59 21:59 Intake Total 1442 / 1442 390 / 390 Output Total 1625 / 1625 250 / 250 Balance -183 / -183 140 / 140 Intake: IV 1192 / 1192 150 / 150 Calcium Gluconate 5 Meq 1042 / 1042 Potassium Chloride 40 Meq Infuvite Adult 10 ml Selenium 60 Mcg Sodium Phosphate 15 Mmol Magnesium Sulfate 8.12 Meq Sodium Chloride 30 Meq In Clinimix 5%-20% Solution 1,000 ml @ 60 mls/hr IV Q18H [facility] Rx#: [id number] Zosyn 3.375 gm In 50 / 50 50 / 50 Dextrose 5% in Water 50 ml @ 100 mls/hr IV Q6H [facility] Rx#:[id number] Oral 250 / 250 240 / 240 Output: Urine Catheter Amount 1550 / 1550 250 / 250 Stool 75 / 75 Other: Meal Breakfast Percent of Meal Consumed 100% Feeding Ability Independent Exam: Constitutional; Afebrile, cooperative, alert, not in distress. Eyes- No icterus, , No periorbital swelling Ears- Ext ear normal, hearing normal to conversation. Neck- Midline trachea, supple Respiratory system: Air Entry equal on both sides, No crackles or wheezing, no rhonchi. severe scoloiosis of back. CVS- Rate rhythm regular, S1,S2 heard, no gallop, no rub. Abdomen- Soft lower midline incision, colostomy in place. [employer]- AOOx3, moving all extremities, no gross focal deficit noted. Medical - PN: Obj Da - Labs CBC & Chem 7: 03/07/17 05:10 03/07/17 05:10 Labs: Abnormal Lab Results 03/07/17 03/07/17 03/06/17 05:10 05:10 08:34 WBC 4.3 L RBC 3.84 L Hgb 9.1 L 9.5 L Hct 28.7 L 30.3 L MCV 74.8 L 75.3 L MCH 23.7 L 23.5 L RDW 24.1 H 23.7 H Gran % 81.4 H Lymph % (Auto) 13.7 L 6.9 L [place] % (Auto) 16.5 H Lymph # (Auto) 0.6 L 0.4 L BUN 24 H Glucose 106 H Uric Acid 0.9 L Calcium 8.4 L Lactate Dehydrogenase Total Protein 5.5 L Albumin 3.0 L Urine Occult Blood Urine RBC 03/06/17 03/05/17 03/05/17 04:00 11:42 03:12 WBC RBC Hgb Hct MCV MCH RDW Gran % Lymph % (Auto) [place] % (Auto) Lymph # (Auto) BUN Glucose Uric Acid 0.8 L 1.1 L Calcium 8.2 L 8.2 L Lactate Dehydrogenase 256 H Total Protein 5.4 L 5.3 L Albumin 2.9 L 2.9 L Urine Occult Blood 0.2 A Urine RBC 43 H Meds: Medications Acetaminophen (Tylenol) 650 mg PO Q6HP PRN PRN Reason: PAIN/FEVER > 101 Hydrocodone Bitart/Acetaminophen ([place] 5/325mg) 1 tab PO Q4HP PRN PRN Reason: Pain Albuterol Sulfate (Ventolin) 2.5 mg NEB Q4HRT PRN PRN Reason: Shortness Of Breath Or Wheezing Diagnostic Test (Pha) (Accu-Chek) 1 each FS Q6 [facility] Last Admin: 03/07/17 11:53 Dose: 1 each Docusate Sodium (Colace) 100 mg PO BID PRN PRN Reason: Constipation Famotidine (Pepcid) 20 mg IV Q12 [facility] Last Admin: 03/07/17 09:11 Dose: 20 mg Heparin Sodium (Porcine) (Heparin) 5,000 unit SQ Q12 [facility] Last Admin: 03/07/17 09:11 Dose: 5,000 unit Hydromorphone HCl (Dilaudid) 0.5 mg IV Q2HP PRN PRN Reason: Pain Last Admin: 03/06/17 00:27 Dose: 0.5 mg Acetaminophen (Ofirmev) 500 mg in 50 mls @ 200 mls/hr IV Q6HP PRN PRN Reason: Pain Fat Emulsion Intravenous 250 (ml/ Premix) 250 mls @ 25 mls/hr IV [id number] [facility] Calcium Gluconate 5 meq/Potassium Chloride 40 meq/Multivitamins/Minerals 10 ml/ Selenium 60 mcg/ Sodium Phosphate 15 mmol/ Magnesium Sulfate 8.12 meq/ Sodium Chloride 30 meq/ Amino Acids 1,056.7526 mls @ 60 mls/hr IV Q18H [facility] Stop: 03/07/17 23:59 Last Admin: 03/07/17 05:18 Dose: 60 mls/hr Metronidazole (Flagyl) 500 mg in 100 mls @ 100 mls/hr IV Q6H [facility] Last Admin: 03/07/17 12:45 Dose: 100 mls/hr Piperacillin Sod/Tazobactam (Sod 3.375 gm/ Dextrose) 50 mls @ 100 mls/hr IV Q6H [facility] Last Admin: 03/07/17 11:44 Dose: 100 mls/hr Calcium Gluconate 5 meq/Potassium Chloride 50 meq/Multivitamins/Minerals 10 ml/ Selenium 60 mcg/ Sodium Phosphate 15 mmol/ Magnesium Sulfate 8.12 meq/ Sodium Chloride 20 meq/ Amino Acids 1,059.2526 mls @ 60 mls/hr IV Q18H [facility] Metoclopramide HCl (Reglan) 10 mg IV Q6 [facility] Last Admin: 03/07/17 11:48 Dose: 10 mg Morphine Sulfate (Morphine) 1 mg IV Q2HP PRN PRN Reason: Pain Naloxone HCl (Narcan) 0.1 mg IV Q2MIN PRN PRN Reason: Opiate Reversal Promethazine HCl (Phenergan) 12.5 mg IV Q4-6HP PRN PRN Reason: Nausea And Vomiting Sodium Chloride (Saline Flush) 10 ml IV UD PRN PRN Reason: FLUSH Last Admin: 03/07/17 06:07 Dose: 10 ml Sodium Chloride (Saline Flush) 10 ml IV UD PRN PRN Reason: Flush Sodium Chloride (Saline Flush) 10 ml IV Q8 [facility] Last Admin: 03/07/17 12:45 Dose: 10 ml Medical - PN: A/P - Time Spent With Patient Total time spent is greater than 50% in coordination of care (as documented) at patient's floor/unit and/or counseling patient: - Narrative A/P Narrative: A/P Rectovaginal Fistula: s/p surgery followed by Surgery. s/p colostomy, paced back on zosyn and flagyl added surgery UTI: On zosyn no ua availabe in chart, no cultures. urine cx neg so far, Severe malnutrition: on TPN and oral diet, dietary following. advance diet as tolerated and allowed by surgery. Severe anemia, hb stable for now, on tpn s/p transfusion. s/p transfusion. microcytic anemia so likely iron def. chr bleed due to mass. Abdominal/ rectal Mass: s/p resection, appeared to be malignant on the operative report, official report suggests adenocarcinoma. plan for chemo radiation as per surgery as outpatient. No Code as per order, Brother in [place] closest relative and would be poa as per pt. DVT hep sq, scd Dispo: SNF when able to tolerate full diet as well as off TPN. Medical - PN: Qual - VTE Deep Vein Thrombosis/Pulmonary Embolism Present on Admission: No
--- NOTE | 2017-03-07 14:44 | General Surgery Progress Note ---
Subjective Patient reports: feels better, pain is less, tolerating liquids well, flatus, bowel movement, afebrile Narrative: Note initiated : 03/07/17 at 2:42 pm Service Date, if different from initiated Date: [] Patient: Milady Rdz 67 y/o F admitted on 02/26/17 for Recto-Vaginal Fistula/ Severe Anemia. Chief Complaint: [Patient is doing well. She is tolerating full liquids without difficulty. Her stoma is working nicely and she is complaining of hunger so her diet will be advanced. Her pain is well controlled except for her back and her perineum. Her incision is still red but she is afebrile and she does not have any leukocytosis. She is stable for discharge whenever a SNF bed is available.] Objective Temp Pulse Resp BP Pulse Ox 98.2 F 78 16 119/79 94 03/07/17 11:26 03/07/17 04:00 03/07/17 11:26 03/07/17 11:26 03/07/17 11:26 - Additional Data Intake & Output - Last 24 hours: Intake & Output 03/05/17 03/06/17 03/07/17 03/08/17 05:59 05:59 05:59 05:59 Intake Total 5028 / 5028 710 / 710 2202 / 2202 390 / 390 Output Total 3070 / 3070 2750 / 2750 2825 / 2825 250 / 250 Balance 1957 / 1957 -2040 / -2040 -623 / -623 140 / 140 Weight 84 lb 4.8 oz 80 lb 6.4 oz 80 lb - General physical appearance no distress, cachectic, chronically ill - Eyes PERRL - ENT no congestion - Neck no venous distension - Respiratory clear to auscultation - Cardiovascular Cardiovascular exam: Present: normal rate and rhythm, +S1, +S2, systolic murmur. Absent: JVD - Abdomen soft, non tender, surgical scars (Mild erythema of surgical incision but no drainage noted; stoma looks good and is functioning well), distended - Integumentary no rash, no growths, no abnormal pigmentation - Neurologic normal coordination, normal sensation - Psychiatric oriented to time, oriented to person, oriented to place, speech is normal, memory intact - Labs 03/07/17 05:10 03/07/17 05:10 Diabetes panel 03/07/17 Range/Units 05:10 Sodium 140 (133-145) mmol/L Potassium 3.7 (3.3-5.1) mmol/L Chloride 104 (96-108) mmol/L Carbon Dioxide 24 (22-30) mmol/L BUN 24 H (8-23) mg/dl Creatinine 0.6 (0.6-1.1) mg/dl Glucose 106 H (70-105) mg/dL Calcium 8.4 L (8.6-10.4) mg/dl AST 17 (0-37) U/l ALT 13 (0-40) U/l Alkaline Phosphatase 54 (39-117) U/L Total Protein 5.5 L (5.9-8.4) gm/dL Albumin 3.0 L (3.2-5.2) gm/dL Triglycerides 73 (<150) mg/dl Calcium panel 03/07/17 Range/Units 05:10 Calcium 8.4 L (8.6-10.4) mg/dl Phosphorus 3.1 (2.7-4.5) mg/dL Albumin 3.0 L (3.2-5.2) gm/dL Pituitary panel 03/07/17 Range/Units 05:10 Sodium 140 (133-145) mmol/L Potassium 3.7 (3.3-5.1) mmol/L Chloride 104 (96-108) mmol/L Carbon Dioxide 24 (22-30) mmol/L BUN 24 H (8-23) mg/dl Creatinine 0.6 (0.6-1.1) mg/dl Glucose 106 H (70-105) mg/dL Calcium 8.4 L (8.6-10.4) mg/dl Adrenal panel 03/07/17 Range/Units 05:10 Sodium 140 (133-145) mmol/L Potassium 3.7 (3.3-5.1) mmol/L Chloride 104 (96-108) mmol/L Carbon Dioxide 24 (22-30) mmol/L BUN 24 H (8-23) mg/dl Creatinine 0.6 (0.6-1.1) mg/dl Glucose 106 H (70-105) mg/dL Calcium 8.4 L (8.6-10.4) mg/dl Total Bilirubin 0.2 (0.0-1.0) mg/dL AST 17 (0-37) U/l ALT 13 (0-40) U/l Alkaline Phosphatase 54 (39-117) U/L Total Protein 5.5 L (5.9-8.4) gm/dL Albumin 3.0 L (3.2-5.2) gm/dL Assessment and Plan (1) Rectal malignant neoplasm Status: Acute Assessment and plan: Stable postoperative day #3 Current Visit: Yes (2) Recto-vaginal fistula Status: Acute Assessment and plan: Decrease bleeding per vagina and rectum 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
[2017-03-07] MEDS: [UNRECOGNIZED DRUG - REMARK] IV SCH ×2 (15:40→23:52)
[2017-03-07] MEDS ORDERED: FAT EMULSION 20% 250 ML in PREMIX 1 BAG IV SCH (16:00)
[2017-03-08] MEDS: PIPERACILLIN SODIUM/TAZOBACTAM 3.375 GM in DEXTROSE 5% IN WATER 50 ML IV SCH ×3 (00:22→12:24)
[2017-03-08] MEDS: 0.9 % SODIUM CHLORIDE 10 ML SYRINGE IV PRN ×3 (00:22→06:13)
[2017-03-08] MEDS: METOCLOPRAMIDE 10 MG/2 ML VIAL IV SCH ×4 (00:23→17:40)
[2017-03-08] MEDS: metroNIDAZOLE 500 MG/100 ML BAG IV SCH ×3 (01:01→13:08)
[2017-03-08] MEDS: 0.9 % SODIUM CHLORIDE 10 ML SYRINGE IV SCH ×3 (06:13→20:53)
[2017-03-08 06:41] LABS: ALT/SGPT 14 U/l (0-40); Albumin 3.1 gm/dL (3.2-5.2); Albumin/Globulin Ratio 1.2 (1.0-2.3); Alkaline Phosphatase 53 U/L (39-117); Bilirubin,Direct < 0.2 mg/dL (0.0-0.3); Blood Urea Nitrogen 24 mg/dl (8-23); Gamma Glutamyl Transpeptidase 28 U/L (5-36); Magnesium 2.2 mg/dL (1.6-2.5); Uric Acid 0.8 mg/dL (2.5-8.0)
[2017-03-08] MEDS: HEPARIN 5,000 UNIT/ML VIAL SQ SCH (08:23)
[2017-03-08] MEDS: FAMOTIDINE/PF 20 MG/2 ML VIAL IV SCH ×2 (08:23→20:53)
--- NOTE | 2017-03-08 13:13 | Internal Med Progress Note ---
Medical - PN: Subj Patient information: Note initiated : 03/08/17 at 1:10 pm Service Date, if different from initiated Date: [] Patient: Milady Rdz 67 y/o F admitted on 02/26/17 for Recto-Vaginal Fistula/ Severe Anemia. Chief Complaint: rectovaginal fistula Interval history: February 26, 2017: History of present illness: Ms. Rdz is a 67 year old with a long-standing history of severe weight loss and kyphoscoliosis. She reports that she developed worsening scoliosis in her 50s with recurrent compression fractures, and thinks that she started losing weight around that time. She believes her weight has been in the 80 pound range since at least 2001. She does have a family history of colon cancer, but never agreed to screening colonoscopy, because she recalls her mother saying it was painful. Patient reports that she had a bad case of sciatica last year, and became very sedentary at that time and then developed constipation followed by rectal bleeding at that time it was thought she had bleeding hemorrhoids. That then settled down. Then about 4 weeks ago, she started to have vaginal bleeding. She thought initially it was just hemorrhoids acting up. However, she is also noticed passing gas and stool from the vaginal area. She is having occasional sweats. She thought perhaps she had a urinary tract infection, so presented to our emergency room a few days ago. She was diagnosed with UTI and given an antibiotic. She returned today, because she continues to see blood and probable stool from the vaginal area. She also notes that her perineal area seems to be getting macerated. Otherwise, she denies recent fever, but has had some occasional sweats, particularly at night. She denies headaches or dizziness, new eye or ear symptoms, sore throat or cough. She denies chest pain or palpitations. She does have mild dyspnea with exertion, for the last year or so. She denies abdominal pain, nausea or vomiting. She says her stools been fairly loose lately, and she does have some urgency to stool. She denies significant dysuria. She says she may have lost a little bit of weight over the last few years, but believes she was at 88 pounds about 15 years ago. ER evaluation included a CT scan, which confirmed a mass in the rectovaginal area, which is eroding through. Dr. Ruth evaluated the patient in the emergency room, and requested admission to work on her nutritional status and correct her severe anemia, prior to considering diverting colostomy. February 27: Today, the patient says she has been having some intermittent pain around her hip areas, but then passed stool and gas, and the pain got better. She otherwise is not having much in the way of discomfort. Dr. Ruth had a long conversation with her today, explaining how colostomies work and that she probably has a tumor that will need treatment with radiation and/or chemotherapy. She seems willing to go through the process of figuring out if what she has is treatable and/or curable. She is a little disappointed that she is still passing stool through the vagina. For some reason she thought the Waddell catheter might relieve that. Otherwise, she denies fever chills chest pain or shortness of breath, nausea or vomiting. February 28: The patient notes that she continues to have some mild chronic back discomfort. She is also continuing to have a bloody mixed with stool discharge from her vaginal area. She is still quite distressed about the diagnosis and the upcoming surgery. She is also a little bit nervous about the bowel prep. However, otherwise she is more confident about going forward with the surgery, and understands that she needs to address her likely underlying cancer. Otherwise, she denies fever or chills, headaches or dizziness, chest pain or shortness of breath, nausea or vomiting. Waddell catheter is in place. March 01: Today, the patient says she feels about the same. He still has some mild abdominal discomfort which she blames on bloating. She continues to have stool and blood pass through her vagina, although this does not seem to be of very large volume. She otherwise denies significant pain. She seems to be tolerating the TPN okay. Otherwise, she denies fever or chills, chest pain or palpitations, shortness of breath, nausea or vomiting. Waddell catheter remains in place. 03/02- Pt seen in troom, on TPN, Sx in AM. Denies fever or chills. No Abd pain. 03/03- surgery at 11 AM today. No overnight bleeding/fever chills abdominal pain nausea vomiting. NPO per surgery. We will review postop. On TPN. No concerns expressed by nursing staff 03/04- postop day 1. patient transfer to ICU post surgery for overnight monitoring. No significant events. On TPN . Stable hemodynamics. No fever chills or significant postoperative pain. sats 99% on 1 L oxygen. No further recommendations from hospitalist service March 05: patient seen examined, no acute overnight events, still has chr issues of back pain, but no acute complaints. S/p Surgery, pathology pending. On full liquid diet. remains on TPN. Plan to get her mobile and active again as soon as surgically able to. March 06: pt seen examined, no acute overnight issues low grade temp noted this AM, but wbc count is normal. Pt on liquid diet tolerating it well, On TPN. 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 Overall plan to D/c to sNF when able for rehab and oncology follow up on discharge. Surgery consult appreciated. will await surgery clearance before discharge planning. March 07: Pt seen examined, no acute overnight events, patient ambulating well with help of walker and PT, still remains of TPN and liquid diet as per surgery. Labs stable. Plan for outpatient oncology and radiation therapy as per surgery. March 08: Per nursing, dietary is concerned that po intake is not yet adequate. Pt just had diet advanced yesterday by Dr. Ruth and is tolerating OK. Pt is having some bloody vaginal discharge and is concerned about it; I d/w Dr. Ruth who recommends continuing off pharmacologic DVT ppx. She had some coughing last night that has now resolved but had some pain at her stoma site with the coughing. D/W Dr. Ruth--has completed course of Zosyn for UTI and does not have an indication for Abx at this point. Pertinent ROS: no fever or sob - Constitutional Vitals: Vital Signs Temp Pulse Resp BP Pulse Ox 97.2 F 80 16 128/81 96 03/08/17 11:56 03/08/17 04:00 03/08/17 11:56 03/08/17 11:56 03/08/17 11:56 Period Temp Pulse Resp BP Sys/Shah Pulse Ox Last 24 Hr 97.2 F-98.5 F 79-91 16-18 102-147/62-83 93-97 Intake and Output 03/07/17 03/08/17 03/08/17 21:59 05:59 13:59 Intake Total 650 / 650 450 / 450 270 / 270 Output Total 1175 / 1175 1400 / 1400 1050 / 1050 Balance -525 / -525 -950 / -950 -780 / -780 Weight 81 lb 8 oz 81 lb 8 oz Patient Weight 03/09/17 05:59 Weight 81 lb 8 oz Intake & Output: Intake & Output 03/07/17 03/08/17 03/08/17 21:59 05:59 13:59 Intake Total 650 / 650 450 / 450 270 / 270 Output Total 1175 / 1175 1400 / 1400 1050 / 1050 Balance -525 / -525 -950 / -950 -780 / -780 Weight 81 lb 8 oz 81 lb 8 oz Intake: IV 150 / 150 400 / 400 150 / 150 Intralipid 20% 250 ml In 250 / 250 Premix 1 Bag @ 25 mls/hr IV [id number]@1600 [facility] Rx#: [id number] Zosyn 3.375 gm In 50 / 50 50 / 50 50 / 50 Dextrose 5% in Water 50 ml @ 100 mls/hr IV Q6H [facility] Rx#:[id number] Oral 500 / 500 50 / 50 120 / 120 Output: Urine Catheter Amount 850 / 850 1250 / 1250 700 / 700 Stool 325 / 325 150 / 150 350 / 350 Other: Meal Breakfast Percent of Meal Consumed 100% General appearance: no acute distress, thin - Respiratory Respiratory exam: Present: CTAB. Absent: accessory muscle use - Cardiovascular Cardiovascular exam: Present: normal rate and rhythm, systolic murmur - GI/Abdominal GI/Abdominal exam: Present: soft Additional comments: hypoactive BT. Stoma pink w green stool in bag. incision has some erythema but no induration, drainage or warmth. - Additional comments: waddell in place. Ext exam shows minimal bloody drainage on pad that has been in place since early this AM - Neurological Exam Neurological exam: Present: alert, CN II-XII intact, oriented X3 Medical - PN: Obj Da - Labs CBC & Chem 7: 03/07/17 05:10 03/08/17 05:36 Labs: Abnormal Lab Results 03/08/17 03/07/17 03/07/17 05:36 05:10 05:10 WBC 4.3 L RBC 3.84 L Hgb 9.1 L Hct 28.7 L MCV 74.8 L MCH 23.7 L RDW 24.1 H Gran % Lymph % (Auto) 13.7 L [place] % (Auto) 16.5 H Lymph # (Auto) 0.6 L BUN 24 H 24 H Glucose 106 H Uric Acid 0.8 L 0.9 L Calcium 8.4 L 8.4 L Total Protein 5.7 L 5.5 L Albumin 3.1 L 3.0 L 03/06/17 03/06/17 08:34 04:00 WBC RBC Hgb 9.5 L Hct 30.3 L MCV 75.3 L MCH 23.5 L RDW 23.7 H Gran % 81.4 H Lymph % (Auto) 6.9 L [place] % (Auto) Lymph # (Auto) 0.4 L BUN Glucose Uric Acid 0.8 L Calcium 8.2 L Total Protein 5.4 L Albumin 2.9 L Meds: Medications Acetaminophen (Tylenol) 650 mg PO Q6HP PRN PRN Reason: PAIN/FEVER > 101 Hydrocodone Bitart/Acetaminophen ([place] 5/325mg) 1 tab PO Q4HP PRN PRN Reason: Pain Albuterol Sulfate (Ventolin) 2.5 mg NEB Q4HRT PRN PRN Reason: Shortness Of Breath Or Wheezing Diagnostic Test (Pha) (Accu-Chek) 1 each FS Q6 [facility] Last Admin: 03/08/17 12:24 Dose: 1 each Docusate Sodium (Colace) 100 mg PO BID PRN PRN Reason: Constipation Famotidine (Pepcid) 20 mg IV Q12 [facility] Last Admin: 03/08/17 08:23 Dose: 20 mg Hydromorphone HCl (Dilaudid) 0.5 mg IV Q2HP PRN PRN Reason: Pain Last Admin: 03/06/17 00:27 Dose: 0.5 mg Acetaminophen (Ofirmev) 500 mg in 50 mls @ 200 mls/hr IV Q6HP PRN PRN Reason: Pain Fat Emulsion Intravenous 250 (ml/ Premix) 250 mls @ 25 mls/hr IV [id number]@1600 [facility] Last Infusion: 03/08/17 02:16 Dose: Infused Metronidazole (Flagyl) 500 mg in 100 mls @ 100 mls/hr IV Q6H [facility] Last Admin: 03/08/17 13:08 Dose: 100 mls/hr Piperacillin Sod/Tazobactam (Sod 3.375 gm/ Dextrose) 50 mls @ 100 mls/hr IV Q6H [facility] Last Admin: 03/08/17 12:24 Dose: 100 mls/hr Calcium Gluconate 5 meq/Potassium Chloride 50 meq/Multivitamins/Minerals 10 ml/ Selenium 60 mcg/ Sodium Phosphate 15 mmol/ Magnesium Sulfate 8.12 meq/ Sodium Chloride 20 meq/ Amino Acids 1,059.2526 mls @ 60 mls/hr IV Q18H [facility] Last Admin: 03/07/17 23:52 Dose: Not Given Metoclopramide HCl (Reglan) 10 mg IV Q6 [facility] Last Admin: 03/08/17 12:28 Dose: 10 mg Morphine Sulfate (Morphine) 1 mg IV Q2HP PRN PRN Reason: Pain Naloxone HCl (Narcan) 0.1 mg IV Q2MIN PRN PRN Reason: Opiate Reversal Promethazine HCl (Phenergan) 12.5 mg IV Q4-6HP PRN PRN Reason: Nausea And Vomiting Sodium Chloride (Saline Flush) 10 ml IV UD PRN PRN Reason: FLUSH Last Admin: 03/08/17 06:13 Dose: 10 ml Sodium Chloride (Saline Flush) 10 ml IV UD PRN PRN Reason: Flush Sodium Chloride (Saline Flush) 10 ml IV Q8 [facility] Last Admin: 03/08/17 06:13 Dose: 10 ml Medical - PN: A/P - Time Spent With Patient Total time spent is greater than 50% in coordination of care (as documented) at patient's floor/unit and/or counseling patient: 25 - 35 minutes - Narrative A/P Narrative: A/P Rectovaginal Fistula: s/p surgery followed by Surgery. s/p colostomy. All abx D/ C'd 03/08 after discussion w surgery. UTI: s/p course of zosyn no ua available in chart, no cultures. urine cx neg so far. DC Zosyn Severe malnutrition: on TPN and oral diet, dietary following. On reg diet per surgery. Severe anemia, hb stable for now, on tpn s/p transfusion. s/p transfusion. microcytic anemia so likely iron def. chr bleed due to mass. Abdominal/ rectal Mass: s/p resection, appeared to be malignant on the operative report, official report suggests adenocarcinoma. plan for chemo radiation as per surgery as outpatient. No Code as per order, Brother in [place] closest relative and would be poa as per pt. DVT scds only per Dr. Ruth's recommendation as she continues to have bleeding from her rectal mass. Dispo: SNF when able to tolerate full diet as well as off TPN. Medical - PN: Qual - VTE Deep Vein Thrombosis/Pulmonary Embolism Present on Admission: No
--- NOTE | 2017-03-08 13:37 | General Surgery Progress Note ---
Subjective Patient reports: feels better, pain is less, tolerating a regular diet, flatus, bowel movement, afebrile Narrative: Note initiated : 03/08/17 at 1:35 pm Service Date, if different from initiated Date: [] Patient: Milady Rdz 67 y/o F admitted on 02/26/17 for Recto-Vaginal Fistula/ Severe Anemia. Chief Complaint: [Patient is doing well without complaint. She did have some bleeding through her vagina and rectum but this is probably augmented by the heparin that she has been receiving. Discussed this with Dr. Preciado and the heparin is again discontinued. I also discussed it with the pharmacist and advised them to not restart the heparin if she should have another order placed. She is more familiar with her stoma. Her p.o. intake is slowly increasing but she is advised that she needs to double the amount of calories that she is taking in. The plan is to continue TPN until she is transferred to the nursing care facility.] Objective Temp Pulse Resp BP Pulse Ox 97.2 F 80 16 128/81 96 03/08/17 11:56 03/08/17 04:00 03/08/17 11:56 03/08/17 11:56 03/08/17 11:56 - Additional Data Intake & Output - Last 24 hours: Intake & Output 03/06/17 03/07/17 03/08/17 03/09/17 05:59 05:59 05:59 05:59 Intake Total 710 / 710 2202 / 2202 1640 / 1640 270 / 270 Output Total 2750 / 2750 2825 / 2825 2825 / 2825 1050 / 1050 Balance -2040 / -2040 -623 / -623 -1185 / -1185 -780 / -780 Weight 80 lb 6.4 oz 80 lb 81 lb 8 oz 81 lb 8 oz - General physical appearance cachectic, chronically ill - Eyes PERRL - ENT no congestion - Neck trachea midline, no lymphadectomy - Respiratory clear to auscultation - Cardiovascular Cardiovascular exam: Present: normal rate and rhythm, irregular rhythm, +S1, +S2 - Abdomen soft, non tender, bowel sounds, distended (Abdomen is distended but is soft and nontender; her stoma looks good and is functioning appropriately) - Integumentary no rash, no growths, no abnormal pigmentation - Neurologic normal coordination, normal sensation - Psychiatric oriented to time, oriented to person, oriented to place, speech is normal, memory intact - Labs 03/07/17 05:10 03/08/17 05:36 Diabetes panel 03/08/17 Range/Units 05:36 Sodium 139 (133-145) mmol/L Potassium 4.2 (3.3-5.1) mmol/L Chloride 104 (96-108) mmol/L Carbon Dioxide 24 (22-30) mmol/L BUN 24 H (8-23) mg/dl Creatinine 0.6 (0.6-1.1) mg/dl Glucose 83 (70-105) mg/dL Calcium 8.4 L (8.6-10.4) mg/dl AST 18 (0-37) U/l ALT 14 (0-40) U/l Alkaline Phosphatase 53 (39-117) U/L Total Protein 5.7 L (5.9-8.4) gm/dL Albumin 3.1 L (3.2-5.2) gm/dL Triglycerides 90 (<150) mg/dl Calcium panel 03/08/17 Range/Units 05:36 Calcium 8.4 L (8.6-10.4) mg/dl Phosphorus 3.2 (2.7-4.5) mg/dL Albumin 3.1 L (3.2-5.2) gm/dL Pituitary panel 03/08/17 Range/Units 05:36 Sodium 139 (133-145) mmol/L Potassium 4.2 (3.3-5.1) mmol/L Chloride 104 (96-108) mmol/L Carbon Dioxide 24 (22-30) mmol/L BUN 24 H (8-23) mg/dl Creatinine 0.6 (0.6-1.1) mg/dl Glucose 83 (70-105) mg/dL Calcium 8.4 L (8.6-10.4) mg/dl Adrenal panel 03/08/17 Range/Units 05:36 Sodium 139 (133-145) mmol/L Potassium 4.2 (3.3-5.1) mmol/L Chloride 104 (96-108) mmol/L Carbon Dioxide 24 (22-30) mmol/L BUN 24 H (8-23) mg/dl Creatinine 0.6 (0.6-1.1) mg/dl Glucose 83 (70-105) mg/dL Calcium 8.4 L (8.6-10.4) mg/dl Total Bilirubin 0.2 (0.0-1.0) mg/dL AST 18 (0-37) U/l ALT 14 (0-40) U/l Alkaline Phosphatase 53 (39-117) U/L Total Protein 5.7 L (5.9-8.4) gm/dL Albumin 3.1 L (3.2-5.2) gm/dL Assessment and Plan (1) Rectal malignant neoplasm Status: Acute Assessment and plan: Stable postoperative day #5 Current Visit: Yes (2) Recto-vaginal fistula Status: Acute Assessment and plan: Decrease bleeding per vagina and rectum 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 We will probably have to transfuse prior to transfer to the nursing care facility. Current Visit: Yes (5) Kyphoscoliosis and scoliosis Status: Chronic Current Visit: Yes (6) Lumbar disc disease with radiculopathy Status: Acute Current Visit: Yes - Time Spent With Patient Total time spent is greater than 50% in coordination of care (as documented) at patient's floor/unit and/or counseling patient:
[2017-03-08] MEDS ORDERED: 0.9 % SODIUM CHLORIDE 250 ML IV SCH (13:45)
[2017-03-08] MEDS: [UNRECOGNIZED DRUG - REMARK] IV SCH (17:40)
[2017-03-09] MEDS: METOCLOPRAMIDE 10 MG/2 ML VIAL IV SCH ×5 (00:25→23:54)
[2017-03-09] MEDS: 0.9 % SODIUM CHLORIDE 10 ML SYRINGE IV SCH ×3 (05:50→22:08)
[2017-03-09 06:39] LABS: Ionized Calcium 1.24 mmol/L (1.16-1.32)
[2017-03-09 06:59] LABS: Blood Urea Nitrogen 25 mg/dl (8-23); Magnesium 2.2 mg/dL (1.6-2.5)
[2017-03-09] MEDS: FAMOTIDINE/PF 20 MG/2 ML VIAL IV SCH ×2 (08:50→20:48)
--- NOTE | 2017-03-09 11:31 | Internal Med Progress Note ---
Medical - PN: Subj Patient information: Note initiated : 03/09/17 at 11:28 am Service Date, if different from initiated Date: [] Patient: Milady Rdz 67 y/o F admitted on 02/26/17 for Recto-Vaginal Fistula/ Severe Anemia. Chief Complaint: [] Interval history: February 26, 2017: History of present illness: Ms. Rdz is a 67 year old with a long-standing history of severe weight loss and kyphoscoliosis. She reports that she developed worsening scoliosis in her 50s with recurrent compression fractures, and thinks that she started losing weight around that time. She believes her weight has been in the 80 pound range since at least 2001. She does have a family history of colon cancer, but never agreed to screening colonoscopy, because she recalls her mother saying it was painful. Patient reports that she had a bad case of sciatica last year, and became very sedentary at that time and then developed constipation followed by rectal bleeding at that time it was thought she had bleeding hemorrhoids. That then settled down. Then about 4 weeks ago, she started to have vaginal bleeding. She thought initially it was just hemorrhoids acting up. However, she is also noticed passing gas and stool from the vaginal area. She is having occasional sweats. She thought perhaps she had a urinary tract infection, so presented to our emergency room a few days ago. She was diagnosed with UTI and given an antibiotic. She returned today, because she continues to see blood and probable stool from the vaginal area. She also notes that her perineal area seems to be getting macerated. Otherwise, she denies recent fever, but has had some occasional sweats, particularly at night. She denies headaches or dizziness, new eye or ear symptoms, sore throat or cough. She denies chest pain or palpitations. She does have mild dyspnea with exertion, for the last year or so. She denies abdominal pain, nausea or vomiting. She says her stools been fairly loose lately, and she does have some urgency to stool. She denies significant dysuria. She says she may have lost a little bit of weight over the last few years, but believes she was at 88 pounds about 15 years ago. ER evaluation included a CT scan, which confirmed a mass in the rectovaginal area, which is eroding through. Dr. Ruth evaluated the patient in the emergency room, and requested admission to work on her nutritional status and correct her severe anemia, prior to considering diverting colostomy. February 27: Today, the patient says she has been having some intermittent pain around her hip areas, but then passed stool and gas, and the pain got better. She otherwise is not having much in the way of discomfort. Dr. Ruth had a long conversation with her today, explaining how colostomies work and that she probably has a tumor that will need treatment with radiation and/or chemotherapy. She seems willing to go through the process of figuring out if what she has is treatable and/or curable. She is a little disappointed that she is still passing stool through the vagina. For some reason she thought the Briones catheter might relieve that. Otherwise, she denies fever chills chest pain or shortness of breath, nausea or vomiting. February 28: The patient notes that she continues to have some mild chronic back discomfort. She is also continuing to have a bloody mixed with stool discharge from her vaginal area. She is still quite distressed about the diagnosis and the upcoming surgery. She is also a little bit nervous about the bowel prep. However, otherwise she is more confident about going forward with the surgery, and understands that she needs to address her likely underlying cancer. Otherwise, she denies fever or chills, headaches or dizziness, chest pain or shortness of breath, nausea or vomiting. Briones catheter is in place. March 01: Today, the patient says she feels about the same. He still has some mild abdominal discomfort which she blames on bloating. She continues to have stool and blood pass through her vagina, although this does not seem to be of very large volume. She otherwise denies significant pain. She seems to be tolerating the TPN okay. Otherwise, she denies fever or chills, chest pain or palpitations, shortness of breath, nausea or vomiting. Briones catheter remains in place. 03/02- Pt seen in troom, on TPN, Sx in AM. Denies fever or chills. No Abd pain. 03/03- surgery at 11 AM today. No overnight bleeding/fever chills abdominal pain nausea vomiting. NPO per surgery. We will review postop. On TPN. No concerns expressed by nursing staff 03/04- postop day 1. patient transfer to ICU post surgery for overnight monitoring. No significant events. On TPN . Stable hemodynamics. No fever chills or significant postoperative pain. sats 99% on 1 L oxygen. No further recommendations from hospitalist service March 05: patient seen examined, no acute overnight events, still has chr issues of back pain, but no acute complaints. S/p Surgery, pathology pending. On full liquid diet. remains on TPN. Plan to get her mobile and active again as soon as surgically able to. March 06: pt seen examined, no acute overnight issues low grade temp noted this AM, but wbc count is normal. Pt on liquid diet tolerating it well, On TPN. 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 Overall plan to D/c to sNF when able for rehab and oncology follow up on discharge. Surgery consult appreciated. will await surgery clearance before discharge planning. March 07: Pt seen examined, no acute overnight events, patient ambulating well with help of walker and PT, still remains of TPN and liquid diet as per surgery. Labs stable. Plan for outpatient oncology and radiation therapy as per surgery. March 08: Per nursing, dietary is concerned that po intake is not yet adequate. Pt just had diet advanced yesterday by Dr. Ruth and is tolerating OK. Pt is having some bloody vaginal discharge and is concerned about it; I d/w Dr. Ruth who recommends continuing off pharmacologic DVT ppx. She had some coughing last night that has now resolved but had some pain at her stoma site with the coughing. D/W Dr. Ruth--has completed course of Zosyn for UTI and does not have an indication for Abx at this point. March 09: Anali TRIMBLE'd yesterday and had frequent trips to bathroom last noc so feels a little tired today. Hungry and eating well. Concerned about having too restricted of a diet given colostomy; we discussed eating small frequent meals and ensuring foods were well chewed. Bleeding has decreased. Pertinent ROS: no fever or sob - Constitutional Vitals: Vital Signs Temp Pulse Resp BP Pulse Ox 98.6 F 86 16 111/73 96 03/09/17 07:36 03/09/17 07:36 03/09/17 08:00 03/09/17 07:36 03/09/17 08:00 Period Temp Pulse Resp BP Sys/Shah Pulse Ox Last 24 Hr 97 F-98.6 F 71-88 14-20 111-135/73-81 96-100 Intake and Output 03/08/17 03/09/17 03/09/17 21:59 05:59 13:59 Intake Total 240 / 240 0 / 0 Output Total 200 / 200 1325 / 1325 675 / 675 Balance 40 / 40 -1325 / -1325 -675 / -675 Weight 78 lb Intake & Output: Intake & Output 03/08/17 03/09/17 03/09/17 21:59 05:59 13:59 Intake Total 240 / 240 0 / 0 Output Total 200 / 200 1325 / 1325 675 / 675 Balance 40 / 40 -1325 / -1325 -675 / -675 Weight 78 lb Intake: Oral 240 / 240 0 / 0 Output: Void Amount 200 / 200 1175 / 1175 575 / 575 Stool 150 / 150 100 / 100 Other: Meal Dinner Percent of Meal Consumed 100% Feeding Ability Assist with Tray Set Up # Voids 1 General appearance: no acute distress, thin - Respiratory Respiratory exam: Present: normal respiratory exam, CTAB - Cardiovascular Cardiovascular exam: Present: normal rate and rhythm - GI/Abdominal GI/Abdominal exam: Present: normal bowel sounds, soft - Neurological Exam Neurological exam: Present: alert, oriented X3 Medical - PN: Obj Da - Labs CBC & Chem 7: 03/07/17 05:10 03/09/17 04:51 Labs: Abnormal Lab Results 03/09/17 03/08/17 03/07/17 04:51 05:36 05:10 WBC 4.3 L RBC 3.84 L Hgb 9.1 L Hct 28.7 L MCV 74.8 L MCH 23.7 L RDW 24.1 H Lymph % (Auto) 13.7 L [place] % (Auto) 16.5 H Lymph # (Auto) 0.6 L BUN 25 H 24 H Glucose Uric Acid 0.8 L Calcium 8.4 L Total Protein 5.7 L Albumin 3.1 L 03/07/17 05:10 WBC RBC Hgb Hct MCV MCH RDW Lymph % (Auto) [place] % (Auto) Lymph # (Auto) BUN 24 H Glucose 106 H Uric Acid 0.9 L Calcium 8.4 L Total Protein 5.5 L Albumin 3.0 L Meds: Medications Acetaminophen (Tylenol) 650 mg PO Q6HP PRN PRN Reason: PAIN/FEVER > 101 Hydrocodone Bitart/Acetaminophen ([place] 5/325mg) 1 tab PO Q4HP PRN PRN Reason: Pain Albuterol Sulfate (Ventolin) 2.5 mg NEB Q4HRT PRN PRN Reason: Shortness Of Breath Or Wheezing Diagnostic Test (Pha) (Accu-Chek) 1 each FS Q6 [facility] Last Admin: 03/09/17 05:55 Dose: 1 each Docusate Sodium (Colace) 100 mg PO BID PRN PRN Reason: Constipation Famotidine (Pepcid) 20 mg IV Q12 [facility] Last Admin: 03/09/17 08:50 Dose: 20 mg Hydromorphone HCl (Dilaudid) 0.5 mg IV Q2HP PRN PRN Reason: Pain Last Admin: 03/06/17 00:27 Dose: 0.5 mg Acetaminophen (Ofirmev) 500 mg in 50 mls @ 200 mls/hr IV Q6HP PRN PRN Reason: Pain Fat Emulsion Intravenous 250 (ml/ Premix) 250 mls @ 25 mls/hr IV [id number]@1600 [facility] Last Infusion: 03/08/17 02:16 Dose: Infused Calcium Gluconate 5 meq/Potassium Chloride 50 meq/Multivitamins/Minerals 10 ml/ Selenium 60 mcg/ Sodium Phosphate 15 mmol/ Magnesium Sulfate 8.12 meq/ Sodium Chloride 20 meq/ Amino Acids 1,059.2526 mls @ 60 mls/hr IV Q18H [facility] Stop: 03/09/17 11:59 Last Admin: 03/08/17 17:40 Dose: 60 mls/hr Calcium Gluconate 5 meq/Potassium Chloride 40 meq/Multivitamins/Minerals 10 ml/ Selenium 60 mcg/ Magnesium Sulfate 8.12 meq/ Sodium Chloride 40 meq/ Amino Acids 1,054.2526 mls @ 60 mls/hr IV Q18H [facility] Metoclopramide HCl (Reglan) 10 mg IV Q6 [facility] Last Admin: 03/09/17 05:49 Dose: 10 mg Morphine Sulfate (Morphine) 1 mg IV Q2HP PRN PRN Reason: Pain Naloxone HCl (Narcan) 0.1 mg IV Q2MIN PRN PRN Reason: Opiate Reversal Promethazine HCl (Phenergan) 12.5 mg IV Q4-6HP PRN PRN Reason: Nausea And Vomiting Sodium Chloride (Saline Flush) 10 ml IV UD PRN PRN Reason: FLUSH Last Admin: 03/08/17 06:13 Dose: 10 ml Sodium Chloride (Saline Flush) 10 ml IV UD PRN PRN Reason: Flush Sodium Chloride (Saline Flush) 10 ml IV Q8 [facility] Last Admin: 03/09/17 05:50 Dose: 10 ml Medical - PN: A/P - Time Spent With Patient Total time spent is greater than 50% in coordination of care (as documented) at patient's floor/unit and/or counseling patient: 25 - 35 minutes - Narrative A/P Narrative: A/P Rectovaginal Fistula: s/p surgery followed by Surgery. s/p colostomy. All abx D/ C'd 03/08 after discussion w surgery. UTI: s/p course of zosyn no ua available in chart, no cultures. urine cx neg so far. DC'd Zosyn 03/08 Severe malnutrition: on TPN and oral diet, dietary following. On reg diet per surgery. Will likely keep on TPN until DC'd tomorrow; f/u dietary recs. Severe anemia, hb stable for now, on tpn s/p transfusion. s/p transfusion. microcytic anemia so likely iron def. chr bleed due to mass. Abdominal/ rectal Mass: s/p resection, appeared to be malignant on the operative report, official report suggests adenocarcinoma. plan for chemo radiation as per surgery as outpatient. No Code as per order, Brother in [place] closest relative and would be poa as per pt. DVT scds only per Dr. Ruth's recommendation as she continues to have bleeding from her rectal mass. Dispo: SNF when able to tolerate full diet as well as off TPN. Medical - PN: Qual - VTE Deep Vein Thrombosis/Pulmonary Embolism Present on Admission: No
[2017-03-09] MEDS: [UNRECOGNIZED DRUG - REMARK] IV SCH (12:16)
[2017-03-09] MEDS ORDERED: 0.9 % SODIUM CHLORIDE 250 ML IV SCH (13:45)
--- NOTE | 2017-03-09 13:54 | General Surgery Progress Note ---
Subjective Patient reports: feels better, pain is less, tolerating a regular diet, flatus, bowel movement, afebrile Narrative: Note initiated : 03/09/17 at 1:52 pm Service Date, if different from initiated Date: [] Patient: Milady Rdz 67 y/o F admitted on 02/26/17 for Recto-Vaginal Fistula/ Severe Anemia. Chief Complaint: [Patient continues to do well. Her vaginal bleeding has significantly decreased since the heparin was discontinued. Her stoma is working nicely. She has better p.o. intake and does not have any crampy abdominal pain. She has progress maximally from inpatient care and is ready for transfer to senior living facility. We will need to make arrangements for chemoradiation while she is at the facility. She will also need to have her central line maintained and converted to a Port-A-Cath. This was discussed with her and she is agreeable.] Objective Temp Pulse Resp BP Pulse Ox 97.9 F 86 20 124/79 94 03/09/17 12:00 03/09/17 07:36 03/09/17 12:00 03/09/17 12:00 03/09/17 12:00 - Additional Data Intake & Output - Last 24 hours: Intake & Output 03/07/17 03/08/17 03/09/17 03/10/17 05:59 05:59 05:59 05:59 Intake Total 2202 / 2202 1640 / 1640 2529.2526 / 2529.2526 2320 / 2320 Output Total 2825 / 2825 2825 / 2825 3025 / 3025 2125 / 2125 Balance -623 / -623 -1185 / -1185 -495.7474 / -495.7474 195 / 195 Weight 80 lb 81 lb 8 oz 78 lb - General physical appearance no pain, cachectic, chronically ill - Eyes PERRL - ENT no congestion - Neck no venous distension - Respiratory clear to auscultation - Cardiovascular Cardiovascular exam: Present: normal rate and rhythm, RRR, +S1, +S2. Absent: JVD - Abdomen soft, non tender, distended (Abdomen is mildly distended but with good active bowel sounds. There is no tenderness. Her incision looks good. Her stoma is functioning appropriately.) - Integumentary no rash, no growths, no abnormal pigmentation - Neurologic normal coordination, normal sensation - Psychiatric oriented to time, oriented to person, oriented to place, speech is normal, memory intact - Labs 03/07/17 05:10 03/09/17 04:51 Diabetes panel 03/09/17 Range/Units 04:51 Sodium 138 (133-145) mmol/L Potassium 4.4 (3.3-5.1) mmol/L Chloride 101 (96-108) mmol/L Carbon Dioxide 25 (22-30) mmol/L BUN 25 H (8-23) mg/dl Creatinine 0.6 (0.6-1.1) mg/dl Glucose 101 (70-105) mg/dL Calcium panel 03/09/17 Range/Units 04:51 Ionized Calcium [place] 1.24 (1.16-1.32) mmol/L Phosphorus 4.1 (2.7-4.5) mg/dL Pituitary panel 03/09/17 Range/Units 04:51 Sodium 138 (133-145) mmol/L Potassium 4.4 (3.3-5.1) mmol/L Chloride 101 (96-108) mmol/L Carbon Dioxide 25 (22-30) mmol/L BUN 25 H (8-23) mg/dl Creatinine 0.6 (0.6-1.1) mg/dl Glucose 101 (70-105) mg/dL Adrenal panel 03/09/17 Range/Units 04:51 Sodium 138 (133-145) mmol/L Potassium 4.4 (3.3-5.1) mmol/L Chloride 101 (96-108) mmol/L Carbon Dioxide 25 (22-30) mmol/L BUN 25 H (8-23) mg/dl Creatinine 0.6 (0.6-1.1) mg/dl Glucose 101 (70-105) mg/dL Assessment and Plan (1) Rectal malignant neoplasm Status: Acute Assessment and plan: Stable postoperative day #6 Current Visit: Yes (2) Recto-vaginal fistula Status: Acute Assessment and plan: Decrease bleeding per vagina and rectum 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 she will be transfused 2 units of packed red cells today Current Visit: Yes (5) Kyphoscoliosis and scoliosis Status: Chronic Current Visit: Yes (6) Lumbar disc disease with radiculopathy Status: Acute Current Visit: Yes - Time Spent With Patient Total time spent is greater than 50% in coordination of care (as documented) at patient's floor/unit and/or counseling patient:
--- NOTE | 2017-03-09 14:03 | Discharge Summary ---
Providers - Providers Patient information: Note initiated : 03/09/17 at 1:59 pm Service Date, if different from initiated Date: [] Patient: Milady Rdz 67 y/o F admitted on 02/26/17 for Recto-Vaginal Fistula/ Severe Anemia. Chief Complaint: [] Date of admission: 02/26/17 Discharge date: 03/10/17 Attending physician: Brian Ruth Hospitalization Hospital course: 67-year-old female who presented to the emergency room on 26 February with complaints of recurrent rectal bleeding and with notice of stool and gas through her vagina with worsening vaginal bleeding. She was dehydrated and had a hemoglobin of 8.4. On examination her abdomen was distended and she had a palpable large rectal neoplasm which penetrated through the vaginal wall with full connection to the vaginal cavity. She was admitted rehydrated transfused and started on TPN. After she was stabilized she underwent examination under anesthesia with biopsies and end colostomy on 03 March 2017. 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 She has done well. She has some rectal bleeding but this has ceased. She was transfused a total of 4 units of packed red cells while hospitalized. She is now tolerating a better regular diet. Her pain is relatively well controlled. She is accepting of her permanent stoma and understands that she will need to have chemoradiation to control her rectal and vaginal neoplasm. Patient lives alone and cannot care for herself at the present time and arrangements made for her to be transferred to custodial facility while she undergoes the chemotherapy. It is anticipated that she should have a good response since chemoradiation and rectal cancer often has good outcomes. There is no evidence of metastatic disease at this time. 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 Secondary discharge diagnosis: Dehydration with renal failure Blood loss anemia Severe kyphoscoliosis Reason for admission: Rectal and vaginal bleeding and stool per vagina Procedures: Central venous catheter placement Examination under anesthesia with rectal and vaginal biopsies End colostomy Pertinent studies/significant findings: CT of abdomen and pelvis with contrast Complications: None Exam Temp Pulse Resp BP Pulse Ox 97.9 F 86 20 124/79 94 03/09/17 12:00 03/09/17 07:36 03/09/17 12:00 03/09/17 12:00 03/09/17 12:00 - General physical appearance well developed, well nourished, no distress, moderate pain, cachectic, chronically ill - Eyes PERRL, normal ocular movement - ENT normal pinna, normal nares, normal mucosa, no hearing loss, no congestion - Head Head exam IM: Present: atraumatic, normocephalic - Neck no masses, no bruits, trachea midline, no lymphadectomy, no venous distension - Cardiovascular Cardiovascular exam IM: Present: normal rate and rhythm, RRR, +S1, +S2, systolic murmur. Absent: JVD - Respiratory normal expansion, normal respiratory effort, clear to percussion, clear to auscultation - Abdomen Abdomen: Present: soft, non tender, bowel sounds, distended (Abdomen is mildly distended; incision is healing nicely; stoma is functioning and left lower quadrant) Hernia: Present: none - Genitourinary Present: normal external genitalia, perineal/vulvar lesions (Indurated thickened perineal mass extending from rectum to vagina) - Rectum Rectum: Present: normal sphincter tone, no bleeding, other (Large mass of anterior rectum extending into posterior wall of vagina) - Integumentary Present: no rash, no growths, no abnormal pigmentation - Neurologic Present: normal coordination, normal sensation - Musculoskeletal Present: other (Extensive deformity with kyphoscoliosis) - Psychiatric Present: oriented to time, oriented to person, oriented to place, speech is normal, memory intact, other (Mild depression) Discharge Plan - Patient/Caregiver Discharge Instructions Activity: ambulate only with your walker, increase activity as tolerated, resume usual activities as tolerated Diet: Regular Diet Additional Instructions: Central line will be maintained and converted to Port-A-Cath at a later date for chemotherapy purposes and blood draws Prescriptions: Docusate Sodium [Colace] 100 mg PO BID PRN #60 capsule PRN Reason: Constipation HYDROcodone/APAP 5/325MG [[place] 5/325Mg] 1 tab PO Q4HP PRN #60 tablet PRN Reason: Pain - Follow up Plan Follow up with: Jignesh Crowell MD [Primary Care Provider] - Disposition: Xfer SNF Prognosis: Good Rehab Potential: Good I certify that the patient requires SNF services.: Yes Overall status at discharge: patient is not back to baseline Pending Studies Resuscitation Status Do Not Resuscitate Diet Regular Diet Start FriMar 07 Dinner Diagnostic Test (Pha) (Accu-Chek) 1 each FS Q6 [facility] Last Admin: 03/09/17 12:14 Dose: 1 each Admin: 03/09/17 05:55 Dose: 1 each Admin: 03/09/17 00:53 Dose: 1 each Admin: 03/08/17 17:48 Dose: 1 each Admin: 03/08/17 12:24 Dose: 1 each Admin: 03/08/17 06:12 Dose: 1 each Admin: 03/08/17 00:25 Dose: 1 each Admin: 03/07/17 17:46 Dose: 1 each Admin: 03/07/17 11:53 Dose: 1 each Admin: 03/07/17 05:58 Dose: 1 each Admin: 03/06/17 23:35 Dose: 1 each Admin: 03/06/17 18:26 Dose: 1 each Admin: 03/06/17 12:10 Dose: 1 each Admin: 03/06/17 05:41 Dose: 1 each Admin: 03/06/17 00:20 Dose: 1 each Admin: 03/05/17 17:40 Dose: 1 each Famotidine (Pepcid) 20 mg IV Q12 [facility] Last Admin: 03/09/17 08:50 Dose: 20 mg Admin: 03/08/17 20:53 Dose: 20 mg Admin: 03/08/17 08:23 Dose: 20 mg Admin: 03/07/17 21:02 Dose: 20 mg Admin: 03/07/17 09:11 Dose: 20 mg Admin: 03/06/17 21:29 Dose: 20 mg Admin: 03/06/17 10:19 Dose: Not Given Admin: 03/05/17 20:24 Dose: 20 mg Hydromorphone HCl (Dilaudid) 0.5 mg IV Q2HP PRN PRN Reason: Pain Last Admin: 03/06/17 00:27 Dose: 0.5 mg Fat Emulsion Intravenous 250 (ml/ Premix) 250 mls @ 25 mls/hr IV [id number]@1600 [facility] Last Infusion: 03/08/17 02:16 Dose: 0 mls/hr Admin: 03/07/17 15:43 Dose: 25 mls/hr Calcium Gluconate 5 meq/Potassium Chloride 40 meq/Multivitamins/Minerals 10 ml/ Selenium 60 mcg/ Magnesium Sulfate 8.12 meq/ Sodium Chloride 40 meq/ Amino Acids 1,054.2526 mls @ 60 mls/hr IV Q18H [facility] Last Admin: 03/09/17 12:16 Dose: 60 mls/hr Metoclopramide HCl (Reglan) 10 mg IV Q6 [facility] Last Admin: 03/09/17 12:14 Dose: 10 mg Admin: 03/09/17 05:49 Dose: 10 mg Admin: 03/09/17 00:25 Dose: 10 mg Admin: 03/08/17 17:40 Dose: 10 mg Admin: 03/08/17 12:28 Dose: 10 mg Admin: 03/08/17 06:12 Dose: 10 mg Admin: 03/08/17 00:23 Dose: 10 mg Admin: 03/07/17 17:45 Dose: 10 mg Admin: 03/07/17 11:48 Dose: 10 mg Admin: 03/07/17 05:57 Dose: 10 mg Admin: 03/06/17 23:31 Dose: 10 mg Admin: 03/06/17 18:26 Dose: 10 mg Admin: 03/06/17 11:56 Dose: 10 mg Admin: 03/06/17 05:31 Dose: 10 mg Admin: 03/06/17 00:05 Dose: 10 mg Admin: 03/05/17 17:40 Dose: 10 mg Sodium Chloride (Saline Flush) 10 ml IV UD PRN PRN Reason: FLUSH Last Admin: 03/08/17 06:13 Dose: 10 ml Admin: 03/08/17 01:02 Dose: 10 ml Admin: 03/08/17 00:22 Dose: 10 ml Admin: 03/07/17 19:27 Dose: 10 ml Admin: 03/07/17 06:07 Dose: 10 ml Admin: 03/06/17 12:41 Dose: 10 ml Sodium Chloride (Saline Flush) 10 ml IV Q8 [facility] Last Admin: 03/09/17 05:50 Dose: 10 ml Admin: 03/08/17 20:53 Dose: 10 ml Admin: 03/08/17 16:30 Dose: Not Given Admin: 03/08/17 06:13 Dose: 10 ml Admin: 03/07/17 21:02 Dose: 10 ml Admin: 03/07/17 12:45 Dose: 10 ml Admin: 03/07/17 06:06 Dose: 10 ml Admin: 03/06/17 21:30 Dose: 10 ml Admin: 03/06/17 14:52 Dose: 10 ml Admin: 03/06/17 05:31 Dose: 10 ml Admin: 03/05/17 20:24 Dose: 10 ml Shift Summary 03/09/17 03:35 Shift Summary by Ashlie Mccallum Pt A&O, up with SBA to BR to help with IV pole. Has TPN @60ml/hr to quad-lumen CL. All other ports SL with good blood return. Midline abdominal incision with jamison covered with Tegaderm, area is red and swollen. Colostomy to LLQ with green loose stool, red stoma. Good output after waddell removal. Will DC to [facility] on Friday. Initialized on 03/09/17 03:35 - END OF NOTE
[2017-03-10] MEDS: METOCLOPRAMIDE 10 MG/2 ML VIAL IV SCH ×2 (05:01→12:17)
[2017-03-10] MEDS: [UNRECOGNIZED DRUG - REMARK] IV SCH (05:01)
[2017-03-10] MEDS: 0.9 % SODIUM CHLORIDE 10 ML SYRINGE IV PRN (05:52)
[2017-03-10] MEDS: 0.9 % SODIUM CHLORIDE 10 ML SYRINGE IV SCH (05:52)
[2017-03-10 05:57] LABS: Ionized Calcium 1.25 mmol/L (1.16-1.32)
[2017-03-10 06:10] LABS: Blood Urea Nitrogen 31 mg/dl (8-23); Magnesium 2.4 mg/dL (1.6-2.5)
[2017-03-10 06:20] LABS: ALT/SGPT 21 U/l (0-40); Albumin 3.4 gm/dL (3.2-5.2); Albumin/Globulin Ratio 1.3 (1.0-2.3); Alkaline Phosphatase 62 U/L (39-117); Bilirubin,Direct < 0.2 mg/dL (0.0-0.3); Blood Urea Nitrogen 30 mg/dl (8-23); Gamma Glutamyl Transpeptidase 39 U/L (5-36); Magnesium 2.4 mg/dL (1.6-2.5); Uric Acid 1.3 mg/dL (2.5-8.0)
[2017-03-10] MEDS: FAMOTIDINE/PF 20 MG/2 ML VIAL IV SCH (09:13)
--- NOTE | 2017-03-10 11:28 | General Surgery Progress Note ---
Subjective Patient reports: feels better, pain is less, tolerating a regular diet, flatus, bowel movement, afebrile Narrative: Note initiated : 03/10/17 at 11:24 am Service Date, if different from initiated Date: [] Patient: Milady Rdz 67 y/o F admitted on 02/26/17 for Recto-Vaginal Fistula/ Severe Anemia. Chief Complaint: [Patient is doing well without complaints. She has minimal pain. She does not have any chest pain or shortness of breath. Her stoma is working nicely and her appliance fits without difficulty. There is minimal drainage from her perineum. She was transfused yesterday and her hemoglobin is pending. Patient will be seen in the office in 7 days and arrangements will be made for conversion of central line to Port-A-Cath.] Objective Temp Pulse Resp BP Pulse Ox 98.2 F 78 16 109/79 93 03/10/17 10:56 03/10/17 03:38 03/10/17 10:56 03/10/17 10:56 03/10/17 10:56 - Additional Data Intake & Output - Last 24 hours: Intake & Output 03/08/17 03/09/17 03/10/17 03/11/17 05:59 05:59 05:59 05:59 Intake Total 1640 / 1640 2529.2526 / 2529.2526 4640 / 4640 994 / 994 Output Total 2825 / 2825 3025 / 3025 4475 / 4475 875 / 875 Balance -1185 / -1185 -495.7474 / -495.7474 165 / 165 119 / 119 Weight 81 lb 8 oz 78 lb 85 lb 5 oz - ENT no congestion - Neck no venous distension - Respiratory normal expansion, normal respiratory effort, clear to auscultation - Cardiovascular Cardiovascular exam: Present: normal rate and rhythm, RRR, +S1, +S2. Absent: JVD - Abdomen soft, non tender, bowel sounds (Abdomen is nondistended and soft. She has good active bowel sounds. Some of her jamison have pulled a loose and will be replaced with Steri-Strips. Her stoma looks good and is functioning appropriately.) - Genitourinary perineal/vulvar lesions (The induration of her perineum and perianal area are unchanged. She has decreased tenderness. She has minimal bloody drainage) - Integumentary no rash, no growths, no abnormal pigmentation - Neurologic normal coordination, normal sensation - Musculoskeletal normal gait, normal posture - Psychiatric oriented to time, oriented to person, oriented to place, speech is normal, memory intact - Labs 03/07/17 05:10 03/10/17 04:15 Diabetes panel 03/10/17 03/10/17 Range/Units 04:15 04:15 Sodium 133 135 (133-145) mmol/L Potassium 5.0 5.1 (3.3-5.1) mmol/L Chloride 100 101 (96-108) mmol/L Carbon Dioxide 25 25 (22-30) mmol/L BUN 31 H 30 H (8-23) mg/dl Creatinine 0.6 0.6 (0.6-1.1) mg/dl Glucose 100 101 (70-105) mg/dL Calcium 8.8 (8.6-10.4) mg/dl AST 23 (0-37) U/l ALT 21 (0-40) U/l Alkaline Phosphatase 62 (39-117) U/L Total Protein 6.1 (5.9-8.4) gm/dL Albumin 3.4 (3.2-5.2) gm/dL Triglycerides 99 (<150) mg/dl Calcium panel 03/10/17 03/10/17 Range/Units 04:15 04:15 Calcium 8.8 (8.6-10.4) mg/dl Ionized Calcium Sharron 1.25 (1.16-1.32) mmol/L Phosphorus 3.5 3.5 (2.7-4.5) mg/dL Albumin 3.4 (3.2-5.2) gm/dL Pituitary panel 03/10/17 03/10/17 Range/Units 04:15 04:15 Sodium 133 135 (133-145) mmol/L Potassium 5.0 5.1 (3.3-5.1) mmol/L Chloride 100 101 (96-108) mmol/L Carbon Dioxide 25 25 (22-30) mmol/L BUN 31 H 30 H (8-23) mg/dl Creatinine 0.6 0.6 (0.6-1.1) mg/dl Glucose 100 101 (70-105) mg/dL Calcium 8.8 (8.6-10.4) mg/dl Adrenal panel 03/10/17 03/10/17 Range/Units 04:15 04:15 Sodium 133 135 (133-145) mmol/L Potassium 5.0 5.1 (3.3-5.1) mmol/L Chloride 100 101 (96-108) mmol/L Carbon Dioxide 25 25 (22-30) mmol/L BUN 31 H 30 H (8-23) mg/dl Creatinine 0.6 0.6 (0.6-1.1) mg/dl Glucose 100 101 (70-105) mg/dL Calcium 8.8 (8.6-10.4) mg/dl Total Bilirubin 0.3 (0.0-1.0) mg/dL AST 23 (0-37) U/l ALT 21 (0-40) U/l Alkaline Phosphatase 62 (39-117) U/L Total Protein 6.1 (5.9-8.4) gm/dL Albumin 3.4 (3.2-5.2) gm/dL Assessment and Plan (1) Rectal malignant neoplasm Status: Acute Assessment and plan: Stable postoperative day #7 Current Visit: Yes (2) Recto-vaginal fistula Status: Acute Assessment and plan: Decrease bleeding per vagina and rectum 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 Current Visit: Yes (5) Kyphoscoliosis and scoliosis Status: Chronic Current Visit: Yes (6) Lumbar disc disease with radiculopathy Status: Acute Current Visit: Yes - Time Spent With Patient Total time spent is greater than 50% in coordination of care (as documented) at patient's floor/unit and/or counseling patient:
--- NOTE | 2017-03-10 12:06 | General Surgery Progress Note ---
Subjective Narrative: Note initiated : 03/10/17 at 11:23 am Service Date, if different from initiated Date: [] Patient: Milady Rdz 67 y/o F admitted on 02/26/17 for Recto-Vaginal Fistula/ Severe Anemia. Chief Complaint: [] Objective Temp Pulse Resp BP Pulse Ox 98.2 F 78 16 109/79 93 03/10/17 10:56 03/10/17 03:38 03/10/17 10:56 03/10/17 10:56 03/10/17 10:56 - Additional Data Intake & Output - Last 24 hours: Intake & Output 03/08/17 03/09/17 03/10/17 03/11/17 05:59 05:59 05:59 05:59 Intake Total 1640 / 1640 2529.2526 / 2529.2526 4640 / 4640 994 / 994 Output Total 2825 / 2825 3025 / 3025 4475 / 4475 875 / 875 Balance -1185 / -1185 -495.7474 / -495.7474 165 / 165 119 / 119 Weight 81 lb 8 oz 78 lb 85 lb 5 oz - Labs 03/07/17 05:10 03/10/17 04:15 Diabetes panel 03/10/17 03/10/17 Range/Units 04:15 04:15 Sodium 133 135 (133-145) mmol/L Potassium 5.0 5.1 (3.3-5.1) mmol/L Chloride 100 101 (96-108) mmol/L Carbon Dioxide 25 25 (22-30) mmol/L BUN 31 H 30 H (8-23) mg/dl Creatinine 0.6 0.6 (0.6-1.1) mg/dl Glucose 100 101 (70-105) mg/dL Calcium 8.8 (8.6-10.4) mg/dl AST 23 (0-37) U/l ALT 21 (0-40) U/l Alkaline Phosphatase 62 (39-117) U/L Total Protein 6.1 (5.9-8.4) gm/dL Albumin 3.4 (3.2-5.2) gm/dL Triglycerides 99 (<150) mg/dl Calcium panel 03/10/17 03/10/17 Range/Units 04:15 04:15 Calcium 8.8 (8.6-10.4) mg/dl Ionized Calcium Sharron 1.25 (1.16-1.32) mmol/L Phosphorus 3.5 3.5 (2.7-4.5) mg/dL Albumin 3.4 (3.2-5.2) gm/dL Pituitary panel 03/10/17 03/10/17 Range/Units 04:15 04:15 Sodium 133 135 (133-145) mmol/L Potassium 5.0 5.1 (3.3-5.1) mmol/L Chloride 100 101 (96-108) mmol/L Carbon Dioxide 25 25 (22-30) mmol/L BUN 31 H 30 H (8-23) mg/dl Creatinine 0.6 0.6 (0.6-1.1) mg/dl Glucose 100 101 (70-105) mg/dL Calcium 8.8 (8.6-10.4) mg/dl Adrenal panel 03/10/17 03/10/17 Range/Units 04:15 04:15 Sodium 133 135 (133-145) mmol/L Potassium 5.0 5.1 (3.3-5.1) mmol/L Chloride 100 101 (96-108) mmol/L Carbon Dioxide 25 25 (22-30) mmol/L BUN 31 H 30 H (8-23) mg/dl Creatinine 0.6 0.6 (0.6-1.1) mg/dl Glucose 100 101 (70-105) mg/dL Calcium 8.8 (8.6-10.4) mg/dl Total Bilirubin 0.3 (0.0-1.0) mg/dL AST 23 (0-37) U/l ALT 21 (0-40) U/l Alkaline Phosphatase 62 (39-117) U/L Total Protein 6.1 (5.9-8.4) gm/dL Albumin 3.4 (3.2-5.2) gm/dL Assessment and Plan (1) Rectal malignant neoplasm Status: Acute Assessment and plan: Stable postoperative day #6 Current Visit: Yes (2) Recto-vaginal fistula Status: Acute Assessment and plan: Decrease bleeding per vagina and rectum 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 she will be transfused 2 units of packed red cells today Current Visit: Yes (5) Kyphoscoliosis and scoliosis Status: Chronic Current Visit: Yes (6) Lumbar disc disease with radiculopathy Status: Acute Current Visit: Yes - Time Spent With Patient Total time spent is greater than 50% in coordination of care (as documented) at patient's floor/unit and/or counseling patient:
[2017-03-10 12:26] LABS: Basophils # (Auto) 0 K/mcL (0.0-0.3); Basophils % (Auto) 0 % (0.0-2.0); Eosinophils # (Auto) 0.1 K/mcL (0.0-0.7); Eosinophils % (Auto) 2.1 % (0.0-7.0); Granulocytes % (Auto) 71.4 % (38.0-78.0); Lymphocytes # (Auto) 0.8 K/mcL (1.5-4.8); Lymphocytes % (Auto) 13.1 % (15.5-49.0); Mean Cell Volume 79.2 fL (80.0-100.0); Mean Corpuscular HGB Conc 31.7 g/dL (31.0-36.0); Mean Corpuscular Hemoglobin 25.1 pg (26.0-34.0); Monocytes # (Auto) 0.9 K/mcL (0.1-0.9); Monocytes % (Auto) 13.4 % (1.0-12.0); Platelet Count 304 K/mcL (140-440); RBC 5.02 M/mcL (4.00-5.20); Red Cell Distribution Width 24.9 % (11.5-14.5)
== END 2017-03-10 12:30 | DRG 329 ==
LOC: ED 08:13 → ICU 16:05 → MEDSUR 02-27 16:11 → ICU 03-03 17:29 → MEDSUR 03-06 14:04
PROVIDERS: ADMIT Internal Medicine; ATTEND Family Medicine Adult Medicine